=== PATIENT | female | born 1935 | race Caucasian/White ===

== ENCOUNTER 2025-05-21 17:21 | Emergency (ER) | payer MEDICARE, SELFPAY ==
[2025-05-21 17:26] VITALS: BP 152/76; PULSE 93; RESP 18; TEMP 36.7; O2SAT 97; BMI 19.8
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
--- OUTSIDE RECORDS SUMMARY | 2025-05-21 18:31 | XMS RPT_ITS | CCD ---
Author Organization [facility] ion Partnership [facility] Care Team Providers Care Manager Field Sales Name Role Phone Tai Doizer MD Primary Care Provider Unavailable Primary Care Provider UnavailTAI Valdez Primary Care Unavailable AVE MORAN Attending Unavailjoshua e TAI DOZIER Primary Care Unavailable TAI DOZIER Primary Care Unavailable TAI DOZIER Referring Unavailable TAI DOZIER Attending Unavailable CONSTANTIN BENTLEY Primary Care Unavailable Natalie MARIE, Ghazala Parr Primary Care Provider YANOGA, MELVIN Attending Unavailable SELF, SELF Referring Unavailable YANOGA, MELVIN Attending Unavailable SELF, SELF Referring Unavailable YANOGA, MELVIN Attending Unavailable SELF, SELF Referring Unavailable SELF, SELF Referring Unavailable YANOGA, MELVIN Attending Unavailable SELF, SELF Referring Unavailable YANOGA, MELVIN Attending Unavailable CORBEAN, GHAZALA Attending Unavailable CORBEAN, GHAZALA Primary Care Unavailable CORBEANPRICEY Attending Unavailable CORBEAN, GHAZALA Primary Care Unavailable CORBEANGHAZALA Primary Care Unavaila ble CORBEANGHAZALA Attending Unavaila ble CORBEANGHAZALA Primary Care Unavaila ble CORBEANGHAZALA Attending Unavaila ble CORBEANGHAZALA Primary Care Unavaila ble CORBEANGHAZALA Attending Unavaila ble CORBEANGHAZALA Primary Care Unavaila ble CORBEANGHAZALA Attending Unavaila ble Allergies Allergy Classification Reported Allergen(s) Allergy Type Date of Onset Reaction(s) Facility [facility] (1 source) Morphine Drug Allergy [address] [facility] (18 sources) Morphine; Translations: [MORPHINE SULFATE] Drug Allergy 3 Nausea and vomiting, Hallucinations [facility] (7 sources) Morphine Drug Allergy 4 Nausea and Vomiting [facility] Medications Current Medications Medication Drug Class(es) Dates Sig (Normalized) Sig (Original) amLODIPine 2.5 mg oral tablet (20 sources) Dihydropyridine Calcium Channel Miko Start: 09-17-2023 End: 08-15-2025 take 1 tablet by mouth once daily amLODIPine (NORVASC) 2.5 MG tablet Indications: Hypertension, unspecified type Take 1 (one) tablet (2.5 mg total) by mouth daily . 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 Active b complex vitamins capsule (17 sources) take 1 capsule by mouth once daily b complex vitamins capsule Take 1 (one) capsule by mouth daily . Active take 1 capsule by mouth once laith ly b complex vitamins capsule Take 1 (one) capsule by mouth daily . 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 0.05 mL 09/29/2024 Active bifidobacterium infantis 10.5 mg chewable tablet (20 sources) Start: 09-03-2023 Bifidobacteriu m infantis (Align) 10.5 mg (10 million cell) Chew Indications: SBO (small bowel obstruction) ([facility]) Chew and Swallow 1 tablet daily . 90 tablet 3 09/03/2023 Active End: 09-03-2023 Bifidobacterium infantis (Al ign) 10.5 mg (10 million cell) Chew Chew and Swallow . 0 09/03/2023 Discontinued (Reorder (Suppress CancelRx Message to Pharmacy)) take 1 capsule by [facility] once daily Bifidobacterium infantis (Align) 4 mg capsule Take 1 capsule by mouth 1 (one) time each day. 0 Active cholecalciferol 0.05 mg oral capsule (20 sources) Vitamin D cholecalciferol, vitamin D3, (Vitamin D3) 50 mcg (2,000 unit) cap Take by mouth . 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 Active latanoprost 0.05 mg/ml ophthalmic solution (20 sources) Prostaglandin Analog Start: 08-17-2024 take 1 drop(s) into the eye(s) once daily latanoprost (XALATAN) 0.005 % ophthalmic solution Administer 1 (one) drop into the left eye nightly . 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 08/17/2024 Discontinued (Reorder (Suppress CancelRx Message to Pharmacy)) take 1 drop(s) into the eye(s) at bedtime latanoprost (XALATAN) 0.005 % ophthalmic solution Administer 1 drop into the left eye at bedtime. 0 Active losartan potassium 100 mg oral tablet (20 sources) Angiotensin 2 Receptor Miko Start: 08-19-2023 End: 08-19-2023 take 100 mg by mouth once daily 100 mg, oral, Daily, First dose on Fri08/19/23 at 0900 Start: 09-03-2022 End: 08-15-2025 take 1 tablet by mouth once daily losartan (COZAAR) 100 MG tablet Indications: Hypertension, unspecified type Take 1 (one) tablet (100 mg total) by mouth daily . 90 tablet 1 02/16/2025 08/15/2025 Active End: 08-18-2023 take 1 tablet by mouth once daily losartan (COZAAR) 25 mg tablet Take 1 tablet (25 mg total) by mouth 1 (one) time each day. 0 08/18/2023 Discontinued (Entered in Error) UNABLE TO FIND (17 sources) UNABLE TO FIND V itamin B6 50mg . Active UNABLE TO FIND V itamin B6 50mg . 0 Active Vitamin B Complex (1 source) take 1 tablet by kena th three times weekly B complex tablet Take 1 tablet by mouth 3 (three) times a week. Friday, Friday & 0 Active vitamin e 268 mg oral capsule (20 sources) take 1 capsule by mo ut once daily vitamin E 400 UNIT capsule Take 1 (one) capsule (400 Units total) by mouth daily . Active Vitamin E (Vitam in E/D-Alpha Natural) 268 MG (400 UNIT) capsule Take 400 Units by mouth daily. Active take 1 capsule by mouth every we ek vitamin E, dl,tocopheryl acet, (vitamin E, dl, acetate,) 180 mg (400 unit) capsule Take 1 capsule (400 Units total) by mouth 1 (one) time per week. Friday 0 Active Completed/Discontinued Medications Medication Drug Class(es) Dates Sig (Normalized) Sig (Original) acetaminophen 325 mg oral tablet (1 source) Start: 08-18-2023 End: 08-19-2023 take 1 tablet by mouth every six hours as needed 650 mg, oral, Every 6 hours PRN, mild pain, Starting on Fri08/18/23 at 2142 aspirin 81 mg chewable tablet (20 sources) Platelet Aggregation Inhibitor, Nonsteroidal Anti-inflammatory Drug Start: 08-19-2023 End: 08-19-2023 take 81 mg by mouth once daily 81 mg, oral, Daily, First dose on Fri08/19/23 at 0900 End: 02-16-2025 take 1 tablet by mouth once daily aspirin 81 MG EC tablet Take 1 (one) tablet (81 mg total) by mouth daily . 02/16/2025 Discontinued Bevacizumab (AVASTIN) 2.5 MG/0.1ML syringe 2.5 mg (1 source) Start: 08-21-2023 End: 08-21-2023 2.5 mg, Intravitreal, ONCE A S NEEDED, 1 dose, Starting on Karissa 08/21/23 at 1500, Until Karissa 08/21/23 at 1500 Bevacizumab (AVASTIN) 2.5MG/0.1ML syringe 1.25 mg (2 sources) Start: 11-13-2023 End: 11-13-2023 1.25 mg, Intravitreal, ONCE NEEDED, 1 dose, Starting on Karissa 11/13/23 at 1104, Until Karissa 11/13/23 at 1104 Start: 09-30-2023 End: 09-30-2023 1.25 mg, Intravitreal, ONCE NEEDED, 1 dose, Starting on 09/30/23 at 1446, Until 09/30/23 at 1446 Bevacizumab (AVASTIN) 2.75MG/0.11ML syringe 1.25 mg (2 sources) Start: 07-06-2024 End: 07-06-2024 1.25 mg, Intravitreal, ONCE NEEDED, 1 dose, Starting on 07/06/24 at 1432, Until 07/06/24 at 1432 Start: 04-29-2024 End: 04-29-2024 1.25 mg, Intravitreal, ONCE NEEDED, 1 dose, Starting on Karissa 04/29/24 at 1310, Until Karissa 04/29/24 at 1310 fluticasone propionate 0.05 mg/actuat metered dose nasal spray (12 sources) Corticosteroid Start: 04-02-2023 End: 02-16-2025 take 2 spray(s) nasal route once daily fluticasone propionate (FLONASE) 50 mcg/actuation nasal spray Indications: Congestion of right ear Instill 2 (two) sprays into each nostril daily . 16 g 5 04/02/2023 02/16/2025 Discontinued take 2 spray(s) nasa l route once daily for rhinitis fluticasone propionate (FLONASE) 50 mcg/actuation nasal spray Administer 2 sprays into each nostril 1 (one) time each day if needed for rhinitis. Shake gently. Before first use, prime pump. After use, clean tip and replace cap. 0 Active melatonin 3 mg oral tablet (1 source) Start: 08-18-2023 End: 08-19-2023 take 6 mg by mouth once daily as needed for sleep 6 mg, oral, Nightly PRN, sleep, Starting on Fri08/18/23 at 2142 nitroglycerin 0.4 mg sublingual tablet (1 source) Nitrate Vasodilator Start: 08-18-2023 End: 08-19-2023 nitroglycerin (NITROSTAT) SL tablet 0.4 mg polyethylene glycol 3350 [id number] mg powder for oral solution (1 source) Osmotic Laxative Start: 08-18-2023 End: 08-19-2023 17 g, oral, Daily PRN, constipation, Starting on Fri08/18/23 at 214 Bowel Regimen - for prevention of constipation regadenoson (LEXISCAN) injection 0.4 mg (1 source) Start: 08-19-2023 End: 08-19-2023 regadenoson (LEXISCAN) injection 0.4 mg 125 ml sodium chloride 9 mg/ml prefilled syringe (3 sources) Start: 08-19-2023 End: 08-19-2023 sodium chloride 0.9 % flush 10 mL Start: 08-18-2023 End: 08-19-2023 sodium chloride 0.9 % flush 10 mL TC-99M sestamibi P radio-iso kathryn injection 10.5 millicurie (1 source) Start: 08-19-2023 End: 08-19-2023 TC-99M sestamibi P radio-isotope injection 10.5 millicurie TC-99M sestamibi P radio-iso kathryn injection 30 millicurie (1 source) Start: 08-19-2023 End: 08-19-2023 TC-99M sestamibi P radio-isotope injection 30 millicurie Problems Active Problems Problem Classification Problem Date Documented Da te Episodic/Chronic Adjustment disorders (16 sources) Grief finding; Translations: [Adjustment disorder with depressed mood] Onset: 03-18-2023 03-18-2023 Chronic Cataract (1 source) Bilateral pseudophakia; Translations: [Presence of intraocular lens] 08-21-2023 Chronic Diverticulosis and diverticulitis (18 sources) Diverticular disease; Translations: [Diverticulosis of intestine, part unspecified, without perforation or abscess without bleeding] Chronic Essential hypertension (20 sources) Hypertensive disorder; Translations: [Essential (primary) hypertension] Onset: 09-13-2022 Chronic Glaucoma (18 sources) Glaucoma of left eye; Translations: [Unspecified glaucoma] Chronic Headache; including migraine (1 source) Tension-type headache; Translations: [Tension-type headache, unspecified, not intractable] 04-02-2023 Chronic Hemorrhoids (18 sources) Hemorrhoids; Translations: [Unspecified hemorrhoids] Episodic Immunizations and screening for infectious disease (3 sources) Patient encounter status; Translations: [Encounter for immunization] 03-18-2023 Episodic Intestinal obstruction without hernia (20 sources) Small bowel obstruction; Translations: [Unspecified intestinal obstruction, unspecified as to partial versus complete obstruction] Episodic Nonspecific chest pain (3 sources) Chest pain; Translations: [Chest pain, unspecified] Onset: 08-18-2023 08-18-2023 Episodic Other ear and sense organ disorders (1 source) Hearing difficulty; Translations: [Unspecified hearing loss, bilateral] Chronic Other eye disorders (1 source) Disorder of lacrimal gland; Translations: [Dry eye syndrome of bilateral lacrimal glands] 01-06-2025 Episodic Other gastrointestinal disorders (18 sources) Stool DNA-based colorectal cancer screening positive; Translations: [Other fecal abnormalities] Episodic Other injuries and conditions due to external causes (3 sources) At low risk for fall; Translations: [History of falling] 03-18-2023 Episodic Other injuries and conditions due to external causes (2 sources) History of falling; Translations: [History of falling] Onset: 02-16-2025 Episodic Other screening for suspected conditions (not mental disorders or infectious disease) (5 sources) Screening due; Translations: [Encounter for screening for lipoid disorders] Onset: 04-02-2023 03-18-2023 Episodic Other skin disorders (1 source) Disorder of skin; Translations: [Other skin changes] 04-02-2023 Episodic Residual codes; unclassified (18 sources) H/O: major abdominal surgery; Translations: [Other specified postprocedural states] Episodic Residual codes; unclassified (2 sources) Asymptomatic menopausal state; Translations: [Asymptomatic menopausal state] Onset: 03-31-2024 Episodic Retinal detachments; defects; vascular occlusion; and retinopathy (20 sources) Exudative age-related macular degeneration; Translations: [Exudative age-related macular degeneration, right eye, with active choroidal neovascularization] Onset: 09-03-2023 08-21-2023 Chronic Past or Other Problems Problem Classification Problem Date Documented Da te Episodic/Chronic Conditions associated with dizziness or vertigo (3 sources) Dizziness; Translations: [Dizziness and giddiness] Onset: 04-02-2023 04-02-2023 Episodic Mood disorders (18 sources) Mood disorders Onset: 08-17-2024 08-17-2024 Neoplasms of unspecified nature or uncertain behavior (2 sources) Neoplasm of uncertain behavior of skin; Translations: [Neoplasm of uncertain behavior of skin] Onset: 05-01-2023 Episodic Other ear and sense organ disorders (15 sources) Sensation of blocked ear; Translations: [Other specified disorders of right ear] Onset: 04-02-2023 Resolved: 02-16-2025 04-02-2023 Episodic Results Test Name Value Interpretation Reference Range Facility Comprehensive Metabolic Pane linus 02-16-2025 Albumin [Mass/Vol] 4.4 g/dL Normal 3.2-5.2 [facility] Comment on above: Performed By: #### C MP #### [facility] (DEFAULT) [address], [place] [address] ALP [Catalytic activity/Vol] 68 U/L Normal 40-150 [facility] Comment on above: Performed By: #### C MP #### [facility] (DEFAULT) [address] [facility] [place], [place] [address] ALT [Catalytic activity/Vol] 27 U/L Normal 0-35 [facility] Comment on above: Performed By: #### C MP #### [facility] (DEFAULT) [address] [facility] [place], [place] [address] Anion gap [Moles/Vol] 16 mmol/L Normal 10-20 [facility] Comment on above: Performed By: #### C MP #### [facility] (DEFAULT) [address], [place] [address] AST [Catalytic activity/Vol] 26 U/L Normal 0-35 [facility] Comment on above: Performed By: #### C MP #### [facility] (DEFAULT) [address], [place] [address] Bilirubin [Mass/Vol] 1.1 mg/dL Normal 0.0-1.3 [facility] Comment on above: Performed By: #### C MP #### [facility] (DEFAULT) [address] [place] [address] Calcium [Mass/Vol] 9.2 mg/dL Normal 8.4-10.2 [facility] Comment on above: Performed By: #### C MP #### [facility] (DEFAULT) [address] [place] [address] Chloride [Moles/Vol] 109 mmol/L High 98-108 [facility] Comment on above: Performed By: #### C MP #### [facility] (DEFAULT) [address] [place] [address] CO2 [Moles/Vol] 23.0 mmol/L Normal 21.0-32.0 [facility] Comment on above: Performed By: #### C MP #### [facility] (DEFAULT) [address] [place] [address] Creatinine [Mass/Vol] 0.7 mg/dL Normal 0.6-1.2 [facility] Comment on above: Performed By: #### C MP #### [facility] (DEFAULT) [address] [place] [address] GFR/1.73 sq M.predicted MDRD (S/P/Bld) [Vol rate/Area] 79 mL/min/{1.73_m2} Normal 60-[address] [facility] Comment on above: Result Comment: [facility] has implemented the eGFR calculation approach that does not have a coefficient for race that conforms to the NKF-ASN Task Force Recommendations. Estimated?GFR was calculated using the 2020 CKD-EPI creatinine equation. Estimated GFR was calculated using the 2020 CKD-EPI creatinine equation. [facility] has implemented the eGFR calculation approach that does not have a coefficient for race that conforms to the NKF-ASN Task Force Recommendations. The eGFR should be used for monitoring renal function only and not for medication dosing. Performed By: #### C MP #### [facility] (DEFAULT) [address] [place], [place] [address] Glucose [Mass/Vol] 145 mg/dL High 65-99 [facility] Comment on above: Performed By: #### C MP #### [facility] (DEFAULT) [address] [place], [place] [address] Potassium [Moles/Vol] 4.4 mmol/L Normal 3.5-5.1 [facility] Comment on above: Performed By: #### C MP #### [facility] (DEFAULT) [address] [place], [place] [address] Protein [Mass/Vol] 6.9 g/dL Normal 6.0-8.0 [facility] Comment on above: Performed By: #### C MP #### [facility] (DEFAULT) [address] [address] Sodium [Moles/Vol] 144 mmol/L Normal 135-145 [facility] Comment on above: Performed By: #### C MP #### [facility] (DEFAULT) [address], [place] [address] Urea nitrogen [Mass/Vol] 33 mg/dL High 8-25 [facility] Comment on above: Performed By: #### C MP #### [facility] (DEFAULT) [address] [place], [place] [address] Comprehensive metabolic 2000 panelon 02-16-2025 Albumin [Mass/Vol] 4.4 g/dL 3.2 - 5.2 g/dL [facility] ALP [Catalytic activity/Vol] 68 U/L 40 - 150 U/L [facility] ALT [Catalytic activity/Vol] 27 U/L 0 - 35 U/L [facility] Anion gap [Moles/Vol] 16 mmol/L 10 - 2 0 mmol/L [facility] AST [Catalytic activity/Vol] 26 U/L 0 - 35 U/L [facility] Bilirubin Ql (U) 1.1 mg/dL 0.0 - 1.3 mg/dL [facility] Calcium [Mass/Vol] 9.2 mg/dL 8.4 - 10. 2 mg/dL [facility] Chloride [Moles/Vol] 109 mmol/L High 98 - 10 8 mmol/L [facility] Creatinine [Mass/Vol] 0.7 mg/dL 0.6 - 1.2 mg/dL [facility] GFR/1.73 sq M.predicted among non-blacks MDRD (S/P/Bld) [Vol rate/Area] 79 mL/min/{1.73_m2} [facility] Comment on above: [facility] has implemented the eGFR calculation approach that does not have a coefficient for race that conforms to the NKF-ASN Task Force Recommendations. Estimated?GFR was calculated using the 2020 CKD-EPI creatinine equation. Estimated GFR was calculated using the 2020 CKD-EPI creatinine equation. [facility] has implemented the eGFR calculation approach that does not have a coefficient for race that conforms to the NKF-ASN Task Force Recommendations. The eGFR should be used for monitoring renal function only and not for medication dosing. Glucose [Mass/Vol] 145 mg/dL High 65 - 99 mg/dL [facility] HCO3 (Bld) [Moles/Vol] 23 mmol/L 21.0 - 32.0 mmol/L [facility] Interpretation and review of laboratory results Abnormal [facility] Potassium [Moles/Vol] 4.4 mmol/L 3.5 - 5.1 mmol/L [facility] Protein [Mass/Vol] 6.9 g/dL 6.0 - 8.0 g/dL [facility] Sodium [Moles/Vol] 144 mmol/L 135 - 145 mmol/L [facility] Urea nitrogen (BldV) [Mass/Vol] 33 mg/dL High 8 - 25 mg/dL [facility] FUNDUS PHOTOGRAPHY-OU- [facility] OCT/HRT MACULA 01-18-20 [facility] [place] BEVACIZUMAB SOLN - ODon 0 01-17-2025 [facility] FUNDUS PHOTOGRAPHY-12-21 Radiology Study observation (narrative) [facility] OCT/HRT MACULA 01-07-20 Radiology Study observation (narrative) [facility] FUNDUS PHOTOGRAPHY-09-21 [facility] OCT/HRT MAC[place] 10-05-19 [facility] [place] BEVACIZUMAB SOLN - ODon 0 10-04-2024 [facility] No Panel Informationon 09-30 Radiology Study observation (narrative) [facility] CBC With Auto Diff.on 2024 Basophils (Bld) [#/Vol] 0.04 10*3/uL Normal 0.00-0.30 [facility] Comment on above: Order Comment: Regul atory Requirements State: Only Absolute Cell Counts are reported with their reference ranges. Performed By: #### C BC #### [facility] (DEFAULT) [address] [place] [address] Basophils/100 WBC (Bld) 0.6 % Normal [facility] Comment on above: Order Comment: Regul atory Requirements State: Only Absolute Cell Counts are reported with their reference ranges. Performed By: #### C BC #### [facility] (DEFAULT) [address] [place] [address] Eosinophils (Bld) [#/Vol] 0.06 10*3/uL Normal 0.00-0.50 [facility] Comment on above: Order Comment: Regul atory Requirements State: Only Absolute Cell Counts are reported with their reference ranges. Performed By: #### C BC #### [facility] (DEFAULT) [address] [place] [address] Eosinophils/100 WBC (Bld) 0.9 % Normal [facility] Comment on above: Order Comment: Regul atory Requirements State: Only Absolute Cell Counts are reported with their reference ranges. Performed By: #### C BC #### [facility] (DEFAULT) [address] [place] [address] Erythrocyte distribution width (RBC) [Ratio] 13.3 % Normal 11.6-14.8 [facility] Comment on above: Order Comment: Regul atory Requirements State: Only Absolute Cell Counts are reported with their reference ranges. Performed By: #### C BC #### [facility] (DEFAULT) [address], [place] [address] Hematocrit (Bld) [Volume fraction] 42.6 % Normal 36.0-46.0 [facility] Comment on above: Order Comment: Regul atory Requirements State: Only Absolute Cell Counts are reported with their reference ranges. Performed By: #### C BC #### [facility] (DEFAULT) [address], [place] [address] Hemoglobin (Bld) [Mass/Vol] 14.2 g/dL Normal 12.0-16.0 [facility] Comment on above: Order Comment: Regul atory Requirements State: Only Absolute Cell Counts are reported with their reference ranges. Performed By: #### C BC #### [facility] (DEFAULT) [address] [place] [address] Ig% 0.2 % Normal 0.0-4.0 [facility] Comment on above: Order Comment: Regul atory Requirements State: Only Absolute Cell Counts are reported with their reference ranges. Performed By: #### C BC #### [facility] (DEFAULT) [address] [place] [address] Lymphocytes (Bld) [#/Vol] 1.65 10*3/uL Normal 0.90-4.00 [facility] Comment on above: Order Comment: Regul atory Requirements State: Only Absolute Cell Counts are reported with their reference ranges. Performed By: #### C BC #### [facility] (DEFAULT) [address] [place] [address] Lymphocytes/100 WBC (Bld) 25.8 % Normal [facility] Comment on above: Order Comment: Regul atory Requirements State: Only Absolute Cell Counts are reported with their reference ranges. Performed By: #### C BC #### [facility] (DEFAULT) [address] [place] [address] MCH (RBC) [Entitic mass] 32.0 pg Normal 26.0-34.0 [facility] Comment on above: Order Comment: Regul atory Requirements State: Only Absolute Cell Counts are reported with their reference ranges. Performed By: #### C BC #### [facility] (DEFAULT) [address] [place] [address] MCHC (RBC) [Mass/Vol] 33.3 g/dL Normal 31.0-37.0 [facility] Comment on above: Order Comment: Regul atory Requirements State: Only Absolute Cell Counts are reported with their reference ranges. Performed By: #### C BC #### [facility] (DEFAULT) [address], [place] [address] MCV (RBC) [Entitic vol] 96 fL Normal 80-100 [facility] Comment on above: Order Comment: Regul atory Requirements State: Only Absolute Cell Counts are reported with their reference ranges. Performed By: #### C BC #### [facility] (DEFAULT) [address], [place] [address] Monocytes (Bld) [#/Vol] 0.47 10*3/uL Normal 0.30-0.90 [facility] Comment on above: Order Comment: Regul atory Requirements State: Only Absolute Cell Counts are reported with their reference ranges. Performed By: #### C BC #### [facility] (DEFAULT) [address], [place] [address] Monocytes/100 WBC (Bld) 7.4 % Normal [facility] Comment on above: Order Comment: Regul atory Requirements State: Only Absolute Cell Counts are reported with their reference ranges. Performed By: #### C BC #### [facility] (DEFAULT) [address] [place] [address] Neutrophils (Bld) [#/Vol] 4.16 10*3/uL Normal 1.70-7.00 [facility] Comment on above: Order Comment: Regul atory Requirements State: Only Absolute Cell Counts are reported with their reference ranges. Performed By: #### C BC #### [facility] (DEFAULT) [address], [place] [address] Neutrophils/100 WBC (Bld) 65.1 % Normal [facility] Comment on above: Order Comment: Regul atory Requirements State: Only Absolute Cell Counts are reported with their reference ranges. Performed By: #### C BC #### [facility] (DEFAULT) [address], [place] [address] Platelet mean volume (Bld) [Entitic vol] 9.6 fL Normal 9.0-15.[address] [facility] Comment on above: Order Comment: Regul atory Requirements State: Only Absolute Cell Counts are reported with their reference ranges. Performed By: #### C BC #### [facility] (DEFAULT) [address], [place] [address] Platelets (Bld) [#/Vol] 198 10*3/uL Normal 150-400 [facility] Comment on above: Order Comment: Regul atory Requirements State: Only Absolute Cell Counts are reported with their reference ranges. Performed By: #### C BC #### [facility] (DEFAULT) [address] [place] [address] RBC (Bld) [#/Vol] 4.44 10*6/uL Normal 4.00-5.20 [facility] Comment on above: Order Comment: Regul atory Requirements State: Only Absolute Cell Counts are reported with their reference ranges. Performed By: #### C BC #### [facility] (DEFAULT) [address] [place] [address] WBC (Bld) [#/Vol] 6.39 10*3/uL Normal 4.50-11.00 [facility] Comment on above: Order Comment: Regul atory Requirements State: Only Absolute Cell Counts are reported with their reference ranges. Performed By: #### C BC #### [facility] (DEFAULT) [address] [place] [address] CBC and Differentialon 08-17 Basophils (Bld) [#/Vol] 0.04 10*3/uL 0.00 - 0.30 K/uL [facility] Basophils/100 WBC (Bld) 0.6 % [facility] Eosinophils (Bld) [#/Vol] 0.06 10*3/uL 0.00 - 0.50 K/uL [facility] Eosinophils/100 WBC (Bld) 0.9 % [facility] Erythrocyte distribution width (RBC) [Entitic vol] 13.3 % 11.6 - 14.8 % [facility] Hematocrit (Bld) [Volume fraction] 42.6 % 36.0 - 46.0 % [facility] Hemoglobin (Bld) [Mass/Vol] 14.2 g/dL 12.0 - 16.0 g/dL [facility] IG Percent 0.2 % 0.0 - 4.0 % [facility] Lymphocytes (Bld) [#/Vol] 1.65 10*3/uL 0.90 - 4.00 K/uL [facility] Lymphocytes/100 WBC (Bld) 25.8 % [facility] MCH (RBC) [Entitic mass] 32 pg 26.0 - 34.0 pg [facility] MCHC (RBC) [Mass/Vol] 33.3 g/dL 31.0 - 37.0 g/dL [facility] MCV (RBC) [Entitic vol] 96 fL 80 - 100 fL [facility] Monocytes (Bld) [#/Vol] 0.47 10*3/uL 0.30 - 0.90 K/uL [facility] Monocytes/100 WBC (Bld) 7.4 % [facility] Neutrophils (Bld) [#/Vol] 4.16 10*3/uL 1.70 - 7.00 K/uL [facility] Neutrophils/100 WBC (Bld) 65.1 % [facility] Platelet mean volume (Bld) [Entitic vol] 9.6 fL 9.0 - 15.5 fL [facility] Platelets (Bld) [#/Vol] 198 10*3/uL 150 - 400 K/uL [facility] RBC (Bld) [#/Vol] 4.44 10*6/uL [facility] WBC (Bld) [#/Vol] 6.39 10*3/uL 4.50 - 11. 00 K/uL [facility] Regulatory Requireme nts State: Only Absolute Cell Counts are reported with their reference ranges. [facility] Comprehensive Metabolic Pane linus 08-17-2024 Albumin [Mass/Vol] 4.5 g/dL Normal 3.2-5.2 [facility] Comment on above: Performed By: #### C MP #### [facility] (DEFAULT) [address], [place] [address] ALP [Catalytic activity/Vol] 62 U/L Normal 40-150 [facility] Comment on above: Performed By: #### C MP #### [facility] (DEFAULT) [address], [place] [address] ALT [Catalytic activity/Vol] 23 U/L Normal 0-35 [facility] Comment on above: Performed By: #### C MP #### [facility] (DEFAULT) [address] [place], [place] [address] Anion gap [Moles/Vol] 16 mmol/L Normal 10-20 [facility] Comment on above: Performed By: #### C MP #### [facility] (DEFAULT) [address] [place], [place] [address] AST [Catalytic activity/Vol] 27 U/L Normal 0-35 [facility] Comment on above: Performed By: #### C MP #### [facility] (DEFAULT) [address] [place], [place] [address] Bilirubin [Mass/Vol] 0.9 mg/dL Normal 0.0-1.3 [facility] Comment on above: Performed By: #### C MP #### [facility] (DEFAULT) [address] [place], [place] [address] [place], [place] [address] Calcium [Mass/Vol] 9.3 mg/dL Normal 8.4-10.2 [facility] Comment on above: Performed By: #### C MP #### [facility] (DEFAULT) [address] [place], [place] [address] Chloride [Moles/Vol] 107 mmol/L Normal 98-108 [facility] Comment on above: Performed By: #### C MP #### [facility] (DEFAULT) [address] [place], [place] [address] CO2 [Moles/Vol] 22.0 mmol/L Normal 21.0-32.0 [facility] Comment on above: Performed By: #### C MP #### [facility] (DEFAULT) [address] [place], [place] [address] Creatinine [Mass/Vol] 0.6 mg/dL Normal 0.6-1.2 [facility] Comment on above: Performed By: #### C MP #### [facility] (DEFAULT) [address] [place], [place] [address] GFR/1.73 sq M.predicted MDRD (S/P/Bld) [Vol rate/Area] 85 mL/min/{1.73_m2} Normal 60-[address] [facility] Comment on above: Result Comment: The eGFR should be used for monitoring renal function only and not for medication dosing. Performed By: #### C MP #### [facility] (DEFAULT) [address] [place] [address] Glucose [Mass/Vol] 84 mg/dL Normal 65-99 [facility] Comment on above: Performed By: #### C MP #### [facility] (DEFAULT) [address] [place] [address] Potassium [Moles/Vol] 4.4 mmol/L Normal 3.5-5.1 [facility] Comment on above: Performed By: #### C MP #### [facility] (DEFAULT) [address] [place] [address] Protein [Mass/Vol] 6.8 g/dL Normal 6.0-8.0 [facility] Comment on above: Performed By: #### C MP #### [facility] (DEFAULT) [address] [place] [address] Sodium [Moles/Vol] 140 mmol/L Normal 135-145 [facility] Comment on above: Performed By: #### C MP #### [facility] (DEFAULT) [address] [place] [address] Urea nitrogen [Mass/Vol] 24 mg/dL Normal 8-25 [facility] Comment on above: Performed By: #### C MP #### [facility] (DEFAULT) [address] [place] [address] Comprehensive metabolic 2000 panelon 08-17-2024 Albumin [Mass/Vol] 4.5 g/dL 3.2 - 5.2 g/dL [facility] ALP [Catalytic activity/Vol] 62 U/L 40 - 150 U/L [facility] ALT [Catalytic activity/Vol] 23 U/L 0 - 35 U/L [facility] Anion gap [Moles/Vol] 16 mmol/L 10 - 2 0 mmol/L [facility] AST [Catalytic activity/Vol] 27 U/L 0 - 35 U/L [facility] Bilirubin Ql (U) 0.9 mg/dL 0.0 - 1.3 mg/dL [facility] Calcium [Mass/Vol] 9.3 mg/dL 8.4 - 10. 2 mg/dL [facility] Chloride [Moles/Vol] 107 mmol/L 98 - 10 8 mmol/L [facility] Creatinine [Mass/Vol] 0.6 mg/dL 0.6 - 1.2 mg/dL [facility] GFR/1.73 sq M.predicted among non-blacks MDRD (S/P/Bld) [Vol rate/Area] 85 mL/min/{1.73_m2} [facility] Comment on above: The eGFR should be u sed for monitoring renal function only and not for medication dosing. Glucose [Mass/Vol] 84 mg/dL 65 - 99 mg/dL [facility] HCO3 (Bld) [Moles/Vol] 22 mmol/L 21.0 - 32.0 mmol/L [facility] Potassium [Moles/Vol] 4.4 mmol/L 3.5 - 5.1 mmol/L [facility] Protein [Mass/Vol] 6.8 g/dL 6.0 - 8.0 g/dL [facility] Sodium [Moles/Vol] 140 mmol/L 135 - 145 mmol/L [facility] Urea nitrogen (BldV) [Mass/Vol] 24 mg/dL 8 - 25 mg/dL [facility] Lipid 1996 panelon 5 Cholesterol [Mass/Vol] 170 mg/dL 100 - 199 mg/dL [facility] Comment on above: 0-17 years Acceptable: <170 mg/dL Borderline High: 170-199 mg/dL High: >199 mg/dL >18 Years Acceptable Acceptable: 100-199 mg/dL Borderline High: 200-239 mg/dL High: >239 mg/dL Cholesterol in HDL [Mass/Vol] 88 mg/dL High 40 - 59 mg/dL [facility] Comment on above: 0-17 Years Low HDL: <40 mg/dL Borderline low: 40-45 mg/dL Acceptable: >45 mg/dL >17 years Low HDL: <40 mg/dL Near optimal: 40-59 mg/dL Optimal: >59 mg/dL Cholesterol in LDL [Mass/Vol] 68 mg/dL 10 - 130 mg/dL [facility] Comment on above: Comment: National Cholesterol Education Program Guidelines: LDL Cholesterol Optimal: <100 mg/dL Near Optimal/above Optimal: 100-129 mg/dL Borderline High: 130-159 mg/dL High: 160-189 mg/dL Very High: greater than or equal to 190 mg/dL Cholesterol.total/Cho lesterol in HDL [Mass ratio] 2 {ratio} [facility] Comment on above: Comment: Female CHolesterol/HDL Ratio: Average risk: 4.4 1/2 average risk: 3.3 2 x average risk: 7.1 Interpretation and review of laboratory results Abnormal [facility] Magnesium [Mass/Vol] 82 mg/dL [facility] Comment on above: Comment: National Cholesterol Education Program guidelines: NON HDL Cholesterol Desirable: <130 mg/dL Borderline High 130-159 mg/dL High: 160-189 mg/dL Very High: > or = 190 mg/dL Triglyceride [Mass/Vol] 72 mg/dL 30 - 150 mg/dL [facility] Comment on above: Comment: National Cholesterol Education Program Guidelines: Triglyceride Normal: <150 mg/dL Borderline High: 150-199 mg/dL High: 200-499 mg/dL Very High: greater than or equal to 500 mg/dL Lipid Profileon 08-17-2024 Cholesterol [Mass/Vol] 170 mg/dL Normal 100-199 [facility] Comment on above: Result Comment: 0-17 years Acceptable: <170 mg/dL Borderline High: 170-199 mg/dL High: >199 mg/dL >18 Years Acceptable Acceptable: 100-199 mg/dL Borderline High: 200-239 mg/dL High: >239 mg/dL Performed By: #### L IPID #### [facility] (DEFAULT) [address] [place] [address] Cholesterol in HDL [Mass/Vol] 88 mg/dL High 40-59 [facility] Comment on above: Result Comment: 0-17 Years Low HDL: <40 mg/dL Borderline low: 40-45 mg/dL Acceptable: >45 mg/dL >17 years Low HDL: <40 mg/dL Near optimal: 40-59 mg/dL Optimal: >59 mg/dL Performed By: #### L IPID #### [facility] (DEFAULT) [address], [place] [address] Cholesterol in LDL [Mass/Vol] 68 mg/dL Normal 10-130 [facility] Comment on above: Result Comment: Comm ent: National Cholesterol Education Program Guidelines: LDL Cholesterol Optimal: <100 mg/dL Near Optimal/above Optimal: 100-129 mg/dL Borderline High: 130-159 mg/dL High: 160-189 mg/dL Very High: greater than or equal to 190 mg/dL Performed By: #### L IPID #### [facility] (DEFAULT) [address] [place] [address] Cholesterol non HDL [Mass/Vol] 82 mg/dL Normal [facility] Comment on above: Result Comment: Comm ent: National Cholesterol Education Program guidelines: NON HDL Cholesterol Desirable: <130 mg/dL Borderline High 130-159 mg/dL High: 160-189 mg/dL Very High: > or = 190 mg/dL Performed By: #### L IPID #### [facility] (DEFAULT) [address] [place] [address] Cholesterol.total/Cho lesterol in HDL [Mass ratio] 2.00 {ratio} Normal [facility] Comment on above: Result Comment: Comm ent: Female CHolesterol/HDL Ratio: Average risk: 4.4 1/2 average risk: 3.3 2 x average risk: 7.1 Performed By: #### L IPID #### [facility] (DEFAULT) [address] [place] [address] Triglyceride [Mass/Vol] 72 mg/dL Normal 30-150 [facility] Comment on above: Result Comment: Comm ent: National Cholesterol Education Program Guidelines: Triglyceride Normal: <150 mg/dL Borderline High: 150-199 mg/dL High: 200-499 mg/dL Very High: greater than or equal to 500 mg/dL Performed By: #### L IPID #### [facility] (DEFAULT) [address] [place] [address] No Panel Informationon 08-17 [facility] TSH DL <= 0.005 mIU/L Qnon 0 08-17-2024 TSH Qn 1.55 m[IU]/L [facility] Thyroid Stimulating Hormone Relflexon 08-17-2024 TSH w/Reflex. 1.550 Iu/ml Normal 0.270-4.[address] [facility] Comment on above: Performed By: #### T PSYCHIATRIC #### [facility] (DEFAULT) [address] [place] [id number] FUNDUS PHOTOGRAPHY-OUon 06-23 [facility] Radiology [facility]) [facility] ([facility]arrative) [facility] [place] BEVACIZUMAB SOLN - ODon 0 07-06-2024 [facility] OCT[facility]HRT [place] OUon 04-30-20 24 OCT/HRT [place] OU Right Eye Quality was good. Findings include abnormal foveal contour, drusen, subretinal fluid. Interval change is same. Recommendation for management is to continue treatment. Left Eye Quality was good. Findings include drusen. Interval change is same. Recommendation for management is to observe. Normal [facility] Right Eye Quality was good. Findings include abnormal foveal contour, drusen, subretinal fluid. Interval change is same. Recommendation for management is to continue treatment. Left Eye Quality was good. Findings include drusen. Interval change is same. Recommendation for management is to observe. ORDEROUT [facility] [place] BEVACIZUMAB SOLN - ODon 1 06-30-[facility]HRT [place] OUon 04-29-20 24 Radiology Study observation (narrative) [facility] XR BONE DENSITY DEXA AXIALon 03-31-2024 XR BONE DENSITY DEXA AXIAL EXAMINATION: XR BONE DENSITY DEXA AXIAL 03/31/2024 HISTORY: ORDERING SYSTEM PROVIDED HISTORY: Osteopetrosis screening, TECHNOLOGIST PROVIDED HISTORY: Illness/Other Reason for exam: screening Encounter Type: Initial Additional signs and symptoms: no ORDERING SYSTEM PROVIDED DIAGNOSIS CODES: Z13.820 Encounter for osteoporosis screening in asymptomatic postmenopausal patient Z78.0 Encounter for osteoporosis screening in asymptomatic postmenopausal patient Risk Factors: Post menopausal state. COMPARISON: None. TECHNIQUE: Bone mineral density measurements were acquired at the lumbar spine and left hip. Instrument: The examination was done at [facility]. [employer]; serial number: [id number]. FINDINGS: BONE MINERAL DENSITY DETERMINATION: Femoral Neck * Density (g/cm2): 0.571 * T Score: -2.5 * Prior T Score: N/A * % Change: N/A% Total Hip * Density (g/cm2): 0.748 * T Score: -1.6 * Prior T Score: N/A * % Change: N/A% Spine (L1-L2) * Density (g/cm2): 0.988 * T Score: 0.1 * Prior T Score: N/A * % Change: N/A% Forearm (if applicable) * Density (g/cm2): * T Score: * Prior T Score: N/A * % Change: N/A% The average bone mineral density (g/cm2) was measured. Final categorization is based on the lowest T-score of the above, as recommended by the International Society of Clinical Densitometry. FRAX Score: FRAX score not reported because: Some T-score for Spine Total or hip Total or femoral neck at or below -2.5 NOTES: 1. This facility has been validated using the recommendations of the International Society of Clinical Densitometry (ISCD). This validation insures accurate results. In order to be certain that your patient's results are accurate, you should refer them only to facilities that have been validated in this manner. Not all facilities have gone through this rigorous validation. 2. In order to compare results through the years, it is necessary that the patient be scanned on the same instrument each time, or on instruments that have been cross-correlated. If this is not done, then difference may be due to differences in the machines, rather than to changes in the patient's bone density. IMPRESSION: Osteoporosis. PHARMACOLOGIC TREATMENT RECOMMENDATIONS: 1. No uniform recommendation applies to all patients. Management plans must be individualized 2. Consider initiating pharmacologic treatment for postmenopausal women and men greater than or equal to 50 years of age who have the following: Primary fracture prevention: *T-score is less than or equal to -2.5 at the femoral neck, total hip, lumbar spine, 33% radius (some uncertainty with existing data) by DEXA. *Low bone mass (osteopenia: T-score between -1.0 and -2.5) at the femoral neck or total hip by DEXA with a 10 year hip fracture risk greater than or equal to 3% or a 10-year major osteoporosis-related fracture risk greater than or equal to 20% (i.e. clinical vertebral, hip, forearm, or proximal humerus) based on the [place]- adapted FRAX model. Secondary fracture prevention: *Fracture of the hip or vertebra regardless of BMD. *Fracture of the proximal humerus, pelvis, or distal forearm in persons with low bone mass (osteopenia: T-score between at -1.0 and -2.5). The decision to treat should be individualized in persons with a fracture of the proximal humerus, pelvis, or distal forearm who do not have osteopenia or low BMD. Agnes MS, Tabby SL, Lion KL, Naomi EM, Nakul KG, AJ, Jose ES. The clinician's guide to prevention and treatment of osteoporosis. Osteoporosis Int. 2021;33(10):8120-5120. doi: 10.1007/a03518-973-9865 0-y. Epub 2021Oct 18. Erratum in: Osteoporosis Int. 2021Jan 17;: PMID: [id number]; PMCID: [id number]. Workstation ID: [id number] Dictated by: MEG KUMAR on FriApr 06, 2024 8:44:01 AM EDT Transcribed by: MEG KUMAR on FriApr 06, 2024 8:44:01 AM EDT Finalized by: JEAN QUICK on FriApr 07, 2024 8:46:06 AM EDT Normal [facility] Comment on above: Order Comment: Injur y/Trauma or Illness?:Illness/Other How long have you had these symptoms (acute/chronic)?:Acute Reason for exam?:screening Type of Exam?:Initial Additional signs and symptoms?:no [place] BEVACIZUMAB SOLN - ODon 0 03-19-2024 [place] BEVACIZUMAB SOLN - OD Table formatting from the original result was not included. Intraocular injection (0.11 mL bevacizumab): 1.25 mg Bevacizumab 2.75MG/0.11ML Route: Intravitreal, Site: Right Eye [facility]: 94154-842-84, Lot: [id number], Expiration date: 05/07/2024, Waste: 0.06 mL Notes Bevacizumab (Avastin) Intraocular Injection Right Eye - OPHTHALMOLOGY PROCEDURE NOTE PROCEDURE PERFORMED BY: Melvin Harding MD SYSTEMS SOFTWARE ENGINEER(S): None ATTENDING: Melvin Harding MD PROCEDURE DATE: 03/04/2024 PROCEDURE START TIME: 9:44 AM INDICATIONS: Treatment of ICD-10-CM 1. 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 Intermediate stage 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 H35.3122 OCT/HRT [place]U [place] BEVACIZUMAB SOLN - OD EYE: Right (OD) PROCEDURE GOALS: To preserve or improve vision, reduce retinal swelling, and cause regression of abnormal blood vessels. EBL: None Specimen: None Complications: None CONSENT: Informed consent was obtained prior to the procedure after discussion of the risks, benefits, alternatives, and expected outcomes were discussed with the patient. The consent was placed in the chart. The possibilities of infection, reaction to medication, retinal tear, bleeding, thromboembolic events such as myocardial infarction or cerebral vascular accident, the need for additional procedures, failure to diagnosis a condition, and creating a complication requiring surgery were discussed with the patient. The OFF LABEL use of the drug was discussed with the patient. Additional risks, benefits and alternatives were discussed with the patient. The patient concurred with the proposed plan and signed the consent form, giving informed consent. DOES THIS PROCEDURE REQUIRE A UNIVERSAL PROTOCOL? Yes. [place] Protocol is required. Pre-procedure verification was completed. The patient verified the site and procedure. The consent was confirmed, procedure sites were identified and marked, and a timeout was called before the start of the procedure. ANESTHESIA: topical proparacaine/tetracaine and subconjunctival lidocaine 2% with epinephrine 1:200,000 PROCEDURE DETAILS: The operative eye was prepped with Betadine. Using a single dose sterile syringe the following medication was injected: Avastin (Bevacizumab 1.25 mg/0.05 ml). The intravitreal pars plana injection was placed 3.5-4.0 mm from the limbus. Following the injection the eye was irrigated with sterile saline and an antibiotic drop was instilled. Normal [facility] COMPREHENSIVE METABOLIC PANE Linus 03-17-2024 Albumin [Mass/Vol] 4.5 g/dL Normal 3.2-5.2 [facility] Comment on above: Order Comment: [facility] has implemented the eGFR calculation approach that does not have a coefficient for race that conforms to the NKF-ASN Task Force Recommendations. Performed By: #### [id number] #### [facility] [address] [place] [id number] Bob Mane M.D. [id number] ALP [Catalytic activity/Vol] 66 U/L Normal 40-150 [facility] Comment on above: Order Comment: [facility] has implemented the eGFR calculation approach that does not have a coefficient for race that conforms to the NKF-ASN Task Force Recommendations. Performed By: #### [id number] #### [facility] [address] [place], [place] [id number] Bob Mane M.D. [id number] ALT [Catalytic activity/Vol] 28 U/L Normal 0-35 U/L [facility] Comment on above: Order Comment: [facility] has implemented the eGFR calculation approach that does not have a coefficient for race that conforms to the NKF-ASN Task Force Recommendations. Performed By: #### [id number] #### [facility] [address] [place], [place] [id number] Bob Mane M.D. [id number] Anion gap [Moles/Vol] 17 mmol/L Normal 10-20 [facility] Comment on above: Order Comment: [facility] has implemented the eGFR calculation approach that does not have a coefficient for race that conforms to the NKF-ASN Task Force Recommendations. Performed By: #### [id number] #### [facility] [address] [place], [place] [id number] Bob Mane M.D. [id number] AST [Catalytic activity/Vol] 24 U/L Normal 0-35 U/L [facility] Comment on above: Order Comment: [facility] has implemented the eGFR calculation approach that does not have a coefficient for race that conforms to the NKF-ASN Task Force Recommendations. Performed By: #### [id number] #### [facility] [address] [place], [place] [id number] Bob Mane M.D. [id number] Bilirubin [Mass/Vol] 1.2 mg/dL Normal 0.0-1.3 [facility] Comment on above: Order Comment: [facility] has implemented the eGFR calculation approach that does not have a coefficient for race that conforms to the NKF-ASN Task Force Recommendations. Performed By: #### [id number] #### [facility] [address] [place] [id number] Bob Mane M.D. [id number] Calcium [Mass/Vol] 9.6 mg/dL Normal 8.4-10.2 [facility] Comment on above: Order Comment: [facility] has implemented the eGFR calculation approach that does not have a coefficient for race that conforms to the NKF-ASN Task Force Recommendations. Performed By: #### [id number] #### [facility] [address] [place], [place] [id number] Bob Mane M.D. [id number] Chloride [Moles/Vol] 107 mmol/L Normal 98-108 [facility] Comment on above: Order Comment: [facility] has implemented the eGFR calculation approach that does not have a coefficient for race that conforms to the NKF-ASN Task Force Recommendations. Performed By: #### [id number] #### [facility] [address] [place] [id number] Bob Mane M.D. [id number] Creatinine [Mass/Vol] 0.53 mg/dL Low 0.60-1.10 [facility] Comment on above: Order Comment: [facility] has implemented the eGFR calculation approach that does not have a coefficient for race that conforms to the NKF-ASN Task Force Recommendations. Performed By: #### [id number] #### [facility] [address] [place] [id number] Bob Mane M.D. [id number] EGFR 89 mL/min/1.73 m2 Normal >=60 [facility] Comment on above: Order Comment: [facility] has implemented the eGFR calculation approach that does not have a coefficient for race that conforms to the NKF-ASN Task Force Recommendations. Result Comment: Kate mated GFR was calculated using the 2020 CKD-EPI creatinine equation. Performed By: #### [id number] #### [facility] [address] [place] [id number] Bob Mane M.D. [id number] Glucose [Mass/Vol] 85 mg/dL Normal 65-99 [facility] Comment on above: Order Comment: [facility] has implemented the eGFR calculation approach that does not have a coefficient for race that conforms to the NKF-ASN Task Force Recommendations. Performed By: #### [id number] #### [facility] [address] [place] [address] [id number] Bob Mane M.D. [id number] HCO3 (Bld) [Moles/Vol] 23 mmol/L Normal 21-32 [facility] Comment on above: Order Comment: [facility] has implemented the eGFR calculation approach that does not have a coefficient for race that conforms to the NKF-ASN Task Force Recommendations. Performed By: #### [id number] #### [facility] [address] [place] [address] [id number] Bob Mane M.D. [id number] Potassium [Moles/Vol] 4.3 mmol/L Normal 3.5-5.1 [facility] Comment on above: Order Comment: [facility] has implemented the eGFR calculation approach that does not have a coefficient for race that conforms to the NKF-ASN Task Force Recommendations. Performed By: #### [id number] #### [facility] [address] [place] [id number] Bob Mane M.D. [id number] Protein [Mass/Vol] 6.8 g/dL Normal 6.0-8.0 [facility] Comment on above: Order Comment: [facility] has implemented the eGFR calculation approach that does not have a coefficient for race that conforms to the NKF-ASN Task Force Recommendations. Performed By: #### [id number] #### [facility] [address] [place] [id number] Bob Mane M.D. [id number] Sodium [Moles/Vol] 143 mmol/L Normal 135-145 [facility] Comment on above: Order Comment: [facility] has implemented the eGFR calculation approach that does not have a coefficient for race that conforms to the NKF-ASN Task Force Recommendations. Performed By: #### [id number] #### [facility] [address] [place] [address] [id number] Bob Mane M.D. [id number] Urea nitrogen [Mass/Vol] 29 mg/dL High 8-25 [facility] Comment on above: Order Comment: [facility] has implemented the eGFR calculation approach that does not have a coefficient for race that conforms to the NKF-ASN Task Force Recommendations. Performed By: #### [id number] #### [facility] [address] [place] [address] [id number] Bob Mane M.D. [id number] Urea nitrogen/Creatinine [Mass ratio] 54.7 mg/mg High 10.0-20.0 [facility] Comment on above: Order Comment: [facility] has implemented the eGFR calculation approach that does not have a coefficient for race that conforms to the NKF-ASN Task Force Recommendations. Performed By: #### [id number] #### [facility] [address] [place] [id number] Bob Mane M.D. [id number] OCT/HRT MAC[facility] OUon 03-04-20 24 OCT/HRT [facility] OU Right Eye Quality was good. Findings include abnormal foveal contour, drusen, subretinal fluid. Interval change is same. Recommendation for management is to continue treatment. Left Eye Quality was good. Findings include drusen. Interval change is same. Recommendation for management is to observe. Normal [facility] Right Eye Quality was good. Findings include abnormal foveal contour, drusen, subretinal fluid. Interval change is same. Recommendation for management is to continue treatment. Left Eye Quality was good. Findings include drusen. Interval change is same. Recommendation for management is to observe. ORDEROUT [facility] Radiology [facility]narrative[facility] [place] BEVACIZUM[facility] SOLN - ODon 0 11-19-2023 [facility] OCT/HRT [place] OUon 11-13-19 24 Radiology Study observation (narrative) [facility] OCT/HRT MAC[place] OUon 10-04-19 24 [facility] [place] BEVACIZUMAB SOLN - ODon 0 10-04-2023 [facility] OCT/HRT [place] OUon 09-30-19 Radiology Study observation (narrative) [facility] FUNDUS PHOTOGRAPHY-OUon 03- [facility] OCT/HRT [place] OUon 08-28-19 24 [facility] [place] BEVACIZUMAB SOLN - ODon 0 08-28-2023 [facility] No Panel Informationon Radiology Study observation (narrative) [facility] ECG 12 leadOrdered By: Jean Solomon on 08-19-2023 P Wave [employer] 8 degrees [facility] Work Phone: P-R Interval 150 ms [facility] Work Phone: Pathologist interpretation (Bld) [Interp] Normal sinus rhythm Normal ECG Confirmed by Jean Solomon MD ([id number]), state editor Mya Lindquist ([id number]) on 08/19/2023 6:48:42 AM [facility] Work Phone: Q-T Interval 406 ms [facility] Work Phone: QRS Duration 84 ms [facility] Work Phone: QTc 431 ms [facility] Work Phone: R [employer] -13 degrees [facility] Work Phone: Troponin T.cardiac [Mass/Vol] 37 ug/L degrees [facility] Work Phone: [facility] Work Phone: Laboratory - CoagulationOrde red By: Jean Solomon on 08-19-2023 ACT Coag (Bld) 68 s BPM [facility] Work Phone: Regadenoson (Lexiscan) nucle ar stress test with myocardial perfusionOrdered By: Yusuf Del Rio on 08-19-2023 ACT Kaolin induced method (PPP) 4 [facility] Work Phone: ACT Kaolin induced method (PPP) [Relative time] 80209.0 mmHg*bpm [facility] Work Phone: Baseline DBP 99 mmHg [employer] Work Phone: Baseline HR 82 bpm [facility] Work Phone: Baseline SBP 197 mmHg [employer] Work Phone: Estimated workload 1.0 METS [facility] Work Phone: Exercise/injection duration (sec) 0 [facility] Work Phone: Gentamicin [Susc] 0 mm [facility] Work Phone: Peak DBP 83 mmHg [employer] Phone: Peak HR 117 bpm [employer] Phone: Peak SBP 260 mmHg [employer] Phone: Percent HR 88 % [facility] Work Phone: Target HR 113 bpm [employer] Phone: Regadenoson (Lexiscan) nucle ar stress test with myocardial perfusionon 08-19-2023 Vasodilator stress E CG is negative for ischemia at the level of heart rate achieved. Vasodilator (regadenoson) stress test was performed . Hypertensive blood pressure response. Normal myocardial perfusion study. Stress Function Comments: Left ventricular systolic function is normal. The LV ejection fraction is greater than 65%. Stress Findings A pharmacological stress test was performed using regadenoson, 0.4 mg IV over 10-15 seconds, followed by radiopharmacological injection 10 seconds post infusion. Total stress time was 4 min and 0 sec. The patient reached the end of the protocol. No low level exercise was used during pharmacological stress test. The patient's hemodynamic response was adequate for diagnosis. Blood pressure demonstrated a hypertensive response. Heart rate demonstrated a normal response. The patient reported dyspnea during the stress test. ECG Baseline ECG is normal. The ECG shows normal sinus rhythm. Baseline ECG shows no ST-segment deviation. There were no arrhythmias during stress. There is no significant ST abnormalities during stress. There were no arrhythmias during recovery. The result of the stress ECG was negative for ischemia. Nuclear Study Quality Study technique: MPI, SPECT, multi, rest and stress, 1 day and gated. Overall image quality is good. CT attenuation correction was utilized. Perfusion Defect No perfusion defects. Perfusion Defect Conclusion There is no evidence of transient ischemic dilation (TID). Stress Function Comments Left ventricular systolic function is normal. The LV ejection fraction is greater than 65%. Stress Combined Conclusion Normal myocardial perfusion study. CT Findings No acute findings. Nuclear Prior Study There is no prior study available for comparison. CV RAD PACS STRESS Comprehensive metabolic 2000 panelon 08-18-2023 Albumin [Mass/Vol] 4.1 g/dL 3.5 - 4.8 g/dL [facility] ALP [Catalytic activity/Vol] 43 U/L [facility] ALT [Catalytic activity/Vol] 23 U/L [facility] Anion gap [Moles/Vol] 10 mmol/L 6 - 18 [facility] AST [Catalytic activity/Vol] 21 U/L [facility] Bilirubin [Mass/Vol] 1.1 mg/dL 0.3 - 1 .2 mg/dL [facility] Calcium [Mass/Vol] 8.9 mg/dL 8.9 - 10. 3 mg/dL [facility] Chloride [Moles/Vol] 105 mmol/L 98 - 10 7 mmol/L [facility] CO2 [Moles/Vol] 23 mmol/L 22 - 32 mmol/L [facility] Creatinine [Mass/Vol] 0.64 mg/dL 0.60 - 1.30 mg/dL [facility] GFR/1.73 sq M.predicted among non-blacks MDRD (S/P/Bld) [Vol rate/Area] 86 mL/min/{1.73_m2} - PINF [facility] th Comment on above: Calculation based on the Chronic Kidney Disease Epidemiology Collaboration (CKD-EPI) equation refit without adjustment for race. Glucose [Mass/Vol] 89 mg/dL 70 - 99 mg/dL [facility] Interpretation and review of laboratory results Abnormal [facility] Potassium [Moles/Vol] 3.9 mmol/L 3.6 - 5.1 mmol/L [facility] Protein [Mass/Vol] 6.6 g/dL 6.1 - 7.9 g/dL [facility] Sodium [Moles/Vol] 138 mmol/L 136 - 145 mmol/L [facility] Urea nitrogen [Mass/Vol] 27 mg/dL High 8 - 20 mg/dL [facility] Urea nitrogen/Creatinine [Mass ratio] 42.2 mg/mg High 12.0 - 20.0 [facility] F[facility]in D-dimer DDU (PPP) [Ma ss/Vol]on 08-18-2023 Fibrin D-dimer FEU (PPP) [Mass/Vol] NINF [facility] Interpretation and review of laboratory results Normal [facility] CUTOFF 0.49 ug/ml (F EU) At this cutoff level, the negative predictive value for this test is 100% for deep vein thrombosis (DVT) in patients with a low or moderate pre-test probability and 99.7% for pulmonary embolism (PE) in patients with a low or moderate pre-test probability. Clinical correlation is essential. [employer] Hemogram and platelets WO di fferential panel (Bld)on 08-18-2023 Basophils (Bld) [#/Vol] 0.05 10*3/uL [facility] Basophils/100 WBC (Bld) 0.8 % 0.0 - 2.0 % [facility] Eosinophils (Bld) [#/Vol] 0.04 10*3/uL [facility] Eosinophils/100 WBC (Bld) 0.7 % 0.0 - 7.0 % [facility] Erythrocyte distribution width (RBC) [Ratio] 13.1 % 11.0 - 14.8 % [facility] Hematocrit (Bld) [Volume fraction] 38.3 % 34.3 - 47.9 % [facility] Hemoglobin (Bld) [Mass/Vol] 13.0 g/dL 12.0 - 16.0 g/dL [facility] Immature granulocytes (Bld) [#/Vol] 0.02 10*3/uL K/mcL [facility] Immature granulocytes/100 WBC (Bld) 0.3 % 0.0 - 1.2 % [facility] Interpretation and review of laboratory results Abnormal [facility] Lymphocytes (Bld) [#/Vol] 1.62 10*3/uL [facility] Lymphocytes/100 WBC (Bld) 26.4 % 17.9 - 49.6 % [facility] MCH (RBC) [Entitic mass] 33.5 pg [facility] MCHC (RBC) [Mass/Vol] 33.9 g/dL 30.8 - 35.3 g/dL [facility] MCV (RBC) [Entitic vol] 98.7 fL [facility] [place] [facility] Monocytes (Bld) [#/Vol] 0.40 10*3/uL [facility] Monocytes/100 WBC (Bld) 6.5 % 0.0 - 12.0 % [facility] Neutrophils (Bld) [#/Vol] 4.00 10*3/uL [facility] Neutrophils/100 WBC (Bld) 65.3 % 38.1 - 75.5 % [facility] Platelet mean volume (Bld) [Entitic vol] 9.1 fL [facility] th Platelets (Bld) [#/Vol] 190 10*3/uL [facility] RBC (Bld) [#/Vol] 3.88 10*6/uL [facility] WBC (Bld) [#/Vol] 6.1 10*3/uL [facility] [place] [facility] Natriuretic peptide B [Mass/ Vol]on 08-18-2023 Interpretation and review of laboratory results Normal [facility] Natriuretic peptide B (Bld) [Mass/Vol] 57 pg/mL [facility] <100: CHF is unlikel y 100-400: Possible left ventricular dysfunction-unlikely acute decompensation >400: Suspicious for decompensated heart failure. [facility] I.cardiac panel Hig h sensitivity methodon 08-18-2023 Interpretation and review of laboratory results Normal [facility] Troponin I.cardiac High sensitivity method [Mass/Vol] 7 ng/L NINF - 14 ng/L [facility] Interpretation and review of laboratory results Normal [facility] Troponin I.cardiac High sensitivity method [Mass/Vol] 3 ng/L NINF - 14 ng/L [facility] XR Chest 1 Viewon 08-18-2023 No acute findings in the chest. -------- FINAL REPORT -------- Dictated By: Denis Powell Dictated Date: 08/18/2023 16:50 Assigned Physician: Denis Powell Reviewed and Electronically Signed By: Denis Powell Signed Date: 08/18/2023 16:51 Workstation ID: [id number] Transcribed By: Self Edit Transcribed Date: 08/18/2023 16:50 POWERSCRIBE EXAMINATION TYPE: XR CHEST 1 VIEW DATE OF EXAM: 08/18/2023 3:52 PM HISTORY: dyspnea COMPARISON: NONE FINDINGS: The heart size is within normal limits. Atherosclerotic calcification along the aortic arch. No airspace consolidation. No discernible pleural effusion or pneumothorax. Mild degenerative changes in the spine. POWERSCRIBE Denis Powell MD - 08/18/2023 EXAMINATION TYPE: XR CHEST 1 VIEW DATE OF EXAM: 08/18/2023 3:52 PM HISTORY: dyspnea COMPARISON: NONE FINDINGS: The heart size is within normal limits. Atherosclerotic calcification along the aortic arch. No airspace consolidation. No discernible pleural effusion or pneumothorax. Mild degenerative changes in the spine. IMPRESSION: No acute findings in the chest. -------- FINAL REPORT -------- Dictated By: Denis Powell Dictated Date: 08/18/2023 16:50 Assigned Physician: Denis Powell Reviewed and Electronically Signed By: Denis Powell Signed Date: 08/18/2023 16:51 Workstation ID: [id number] Transcribed By: Self Edit Transcribed Date: 08/18/2023 16:50 [facility] Radiology Study observation (narrative) [facility] XR Chest 1 ViewOrdered By: Gerson Powell on 08-18-2023 [facility] Work Phone: Vital Signs Date Time Vital Sign Value Performing Clinician Mihir ulloa 02-16-2025 12:41-0400 Body height 151.1 cm Ghazala Rodriguez MD Work Phone: [facility] 02-16-2025 12:41-0400 Body mass index (BMI) [Ratio] 19.03 kg/m2 Ghazala Rodriguez MD Work Phone: [facility] 02-16-2025 12:41-0400 Body temperature 98.1 [degF] Ghazala Rodriguez MD Work Phone: [facility] 02-16-2025 12:41-0400 Body weight 43.45 kg Ghazala Rodriguez MD Work Phone: [facility] 02-16-2025 12:41-0400 Diastolic blood pressure 74 mm[Hg] Ghazala Rodriguez MD Work Phone: [facility] 02-16-2025 12:41-0400 Heart rate 74 /min Ghazala Rodriguez MD Work Phone: [facility] 02-16-2025 12:41-0400 Respiratory rate 17 /min Ghazala Rodriguez MD Work Phone: [facility] 02-16-2025 12:41-0400 SaO2% (BldA) [Mass fraction] 96 % Ghazala Rodriguez MD Work Phone: [facility] 02-16-2025 12:41-0400 Systolic blood pressure 133 mm[Hg] Ghazala Rodriguez MD Work Phone: [facility] 08-17-2024 14:12-0500 Diastolic blood pressure 82 mm[Hg] Ghazala Rodriguez MD Work Phone: [facility] 08-17-2024 14:12-0500 Systolic blood pressure 150 mm[Hg] Ghazala Rodriguez MD Work Phone: [facility] 08-17-2024 14:02-0500 Body height 151.1 cm Ghazala Rodriguez MD Work Phone: [facility] 08-17-2024 14:02-0500 Body mass index (BMI) [Ratio] 18.87 kg/m2 Ghazala Rodriguez MD Work Phone: [facility] 08-17-2024 14:02-0500 Body temperature 98.4 [degF] Ghazala Rodriguez MD Work Phone: [facility] 08-17-2024 14:02-0500 Body weight 43.09 kg Ghazala Rodriguez MD Work Phone: [facility] 08-17-2024 14:02-0500 Heart rate 71 /min Ghazala Rodriguez MD Work Phone: [facility] 08-17-2024 14:02-0500 Respiratory rate 14 /min Ghazala Rodriguez MD Work Phone: [facility] 08-17-2024 14:02-0500 SaO2% (BldA) [Mass fraction] 96 % Ghazala Rodriguez MD Work Phone: [facility] 09-17-2023 13:13-0400 Body height 151.8 cm Tai Dozier MD Work Phone: [facility] 09-17-2023 13:13-0400 Body mass index (BMI) [Ratio] 18.71 kg/m2 Tai Dozier MD Work Phone: [facility] 09-17-2023 13:13-0400 Body weight 43.09 kg Tai Dozier MD Work Phone: [facility] 09-17-2023 13:13-0400 Diastolic blood pressure 75 mm[Hg] Tai Dozier MD Work Phone: [facility] 09-17-2023 13:13-0400 Heart rate 85 /min Tai Dozier MD Work Phone: [facility] 09-17-2023 13:13-0400 SaO2% (BldA) [Mass fraction] 97 % Tai Dozier MD Work Phone: [facility] 09-17-2023 13:13-0400 Systolic blood pressure 138 mm[Hg] Tai Dozier MD Work Phone: [facility] 09-03-2023 10:16-0400 Diastolic blood pressure 92 mm[Hg] Tai Dozier MD Work Phone: [facility] 09-03-2023 10:16-0400 Systolic blood pressure 155 mm[Hg] Tai Dozier MD Work Phone: [facility] 09-03-2023 09:59-0400 Body height 151.8 cm Tai Dozier MD Work Phone: [facility] 09-03-2023 09:59-0400 Body mass index (BMI) [Ratio] 18.83 kg/m2 Tai Dozier MD Work Phone: [facility] 09-03-2023 09:59-0400 Body weight 43.36 kg Tai Dozier MD Work Phone: [facility] 09-03-2023 09:59-0400 Heart rate 86 /min Tai Dozier MD Work Phone: [facility] 09-03-2023 09:59-0400 SaO2% (BldA) [Mass fraction] 95 % Tai Dozier MD Work Phone: [facility] 08-19-2023 20:02-0500 Body temperature 97.7 [degF] Jean Solomon MD Work Phone: [facility] 08-19-2023 20:02-0500 Diastolic blood pressure 80 mm[Hg] Jean Solomon MD Work Phone: [facility] 08-19-2023 20:02-0500 Heart rate 89 /min Jean Solomon MD Work Phone: [facility] 08-19-2023 20:02-0500 Respiratory rate 16 /min Jean Solomon MD Work Phone: [facility] 08-19-2023 20:02-0500 SaO2% (BldA) [Mass fraction] 96 % Jean Solomon MD Work Phone: [facility] 08-19-2023 20:02-0500 Systolic blood pressure 146 mm[Hg] Jean Solomon MD Work Phone: [facility] 08-18-2023 23:00-0500 Body height 152.4 cm Jean Solomon MD Work Phone: [facility] 08-18-2023 23:00-0500 Body mass index (BMI) [Ratio] 18.71 kg/m2 Jean Solomon MD Work Phone: [facility] 08-18-2023 23:00-0500 Body weight 43.45 kg Jean Solomon MD Work Phone: [facility] 04-02-2023 13:20-0400 Body height 151.8 cm Tai Dozier MD Work Phone: [facility] 04-02-2023 13:20-0400 Body mass index (BMI) [Ratio] 18.91 kg/m2 Tai Dozier MD Work Phone: [facility] 04-02-2023 13:20-0400 Body weight 43.55 kg Tai Dozier MD Work Phone: [facility] 04-02-2023 13:20-0400 Diastolic blood pressure 68 mm[Hg] Tai Dozier MD Work Phone: [facility] 04-02-2023 13:20-0400 Heart rate 84 /min Tai Dozier MD Work Phone: [facility] 04-02-2023 13:20-0400 SaO2% (BldA) [Mass fraction] 97 % Tai Dozier MD Work Phone: [facility] 04-02-2023 13:20-0400 Systolic blood pressure 137 mm[Hg] Tai Dozier MD Work Phone: [facility] 03-18-2023 11:21-0400 Diastolic blood pressure 76 mm[Hg] Tai Dozier MD Work Phone: [facility] 03-18-2023 11:21-0400 Systolic blood pressure 173 mm[Hg] Tai Dozier MD Work Phone: [facility] 03-18-2023 10:34-0400 Body height 151.8 cm Tai Dozier MD Work Phone: [facility] 03-18-2023 10:34-0400 Body mass index (BMI) [Ratio] 18.91 kg/m2 Tai Dozier MD Work Phone: [facility] 03-18-2023 10:34-0400 Body weight 43.55 kg Tai Dozier MD Work Phone: [facility] 03-18-2023 10:34-0400 Heart rate 78 /min Tai Dozier MD Work Phone: [facility] 03-18-2023 10:34-0400 SaO2% (BldA) [Mass fraction] 98 % Tai Dozier MD Work Phone: [facility] 09-13-2022 13:40-0400 Diastolic blood pressure 84 mm[Hg] Tai Dozier MD Work Phone: [facility] 09-13-2022 13:40-0400 Systolic blood pressure 142 mm[Hg] Tai Dozier MD Work Phone: [facility] 09-13-2022 13:03-0400 Body height 152.4 cm Tai Dozier MD Work Phone: [facility] 09-13-2022 13:03-0400 Body mass index (BMI) [Ratio] 18.12 kg/m2 Tai Dozier MD Work Phone: [facility] 09-13-2022 13:03-0400 Body weight 42.09 kg Tai Dozier MD Work Phone: [facility] 09-13-2022 13:03-0400 Heart rate 75 /min Tai Dozier MD Work Phone: [facility] 09-13-2022 13:03-0400 SaO2% (BldA) [Mass fraction] 97 % Tai Dozier MD Work Phone: [facility] Encounters Encounter Date Encounter Type Care Provider Facility Start: 05-02-2025 ambulatory GHAZALA RODRIGUEZ [facility] Start: 03-23-2025 ambulatory GHAZALA RODRIGUEZ [facility] Start: 02-17-2025 End: 02-17-2025 Follow-up encounter Ghazala Rodriguez MD Work Phone: [facility] Comment on above: Comprehensive [employer] Panel Start: 02-16-2025 End: 02-16-2025 Orders Only Ghazala Rodriguez MD Work Phone: [facility] Start: 02-16-2025 End: 02-16-2025 Patient encounter procedure Ghazala Rodriguez MD Work Phone: [facility] Comment on above: General medical exam (Primary Dx); Hypertension, unspecified type; At low risk for fall Start: 02-16-2025 End: 02-16-2025 Patient encounter status Ghazala Rodriguez MD Work Phone: [facility] Work Phone: Start: 02-16-2025 End: 02-16-2025 ambulatory GHAZALA RODRIGUEZ Facility:[facility] Start: 02-16-2025 End: 02-16-2025 Encounter for general adult medical examination without abnormal findings GHAZALA RODRIGUEZ [facility] Start: 02-09-2025 End: 02-09-2025 Documentation procedure Ghazala Rodriguez MD Work Phone: [facility] [facility] Comment on above: MWV OUTREACH (APPT: 02/16/25) Start: 01-06-2025 End: 01-06-2025 Patient encounter procedure Melvin Harding MD Work Phone: 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 Comment on above: Hypertension, unspec ified type (Primary Dx); Macular degeneration, unspecified laterality, unspecified type; At low risk for fall; Healthcare maintenance Start: 08-17-2024 End: 08-17-2024 Patient encounter status Ghazala Rodriguez MD Work Phone: [facility] Start: 08-17-2024 End: 08-18-2024 Orders Only Ghazala Rodriguez MD Work Phone: 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); Intermediate stage 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; Branch retinal vein occlusion of left eye, unspecified complication status; 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 Start: 04-29-2024 ambulatory MELVIN YANOGA Facili ty:[facility] Start: 04-29-2024 End: 04-29-2024 Patient encounter procedure Melvin Harding MD Work Phone: [facility] Comment on above: 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; Intermediate stage 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 Start: 09-30-2023 End: 09-30-2023 Patient encounter procedure Melvin Harding MD Work Phone: [facility] Comment on above: 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); Intermediate stage 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; Branch retinal vein occlusion of left eye, unspecified complication status Start: 09-17-2023 End: 09-17-2023 Office outpatient visit 25 minutes Tai Dozier MD Work Phone: [facility] Comment on above: Hypertension, unspec ified type (Primary Dx); Encounter for osteoporosis screening in asymptomatic postmenopausal patient Start: 09-03-2023 End: 09-03-2023 Office outpatient visit 25 minutes Tai Dozier MD Work Phone: [facility] Comment on above: Hypertension, unspec ified type (Primary Dx); 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 (HCC); Nonexudative age-related macular degeneration of left eye, unspecified stage; SBO (small bowel obstruction) (HCC) Start: 08-21-2023 End: 08-22-2023 Office outpatient new 45 minutes Melvin Harding MD Work Phone: [facility] [place] Comment on above: 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); Intermediate stage 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; 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; Pseudophakia of both eyes Start: 08-18-2023 End: 08-19-2023 Emergency department patient visit Jean Solomon MD Work Phone: [facility] Comment on above: Chest pain, unspecif ied type (Primary Dx) Start: 08-18-2023 End: 08-19-2023 Evaluation and management of inpatient Jean Solomon MD Work Phone: [facility] Start: 05-01-2023 End: 05-01-2023 ambulatory [facility] Start: 04-02-2023 End: 04-06-2023 ambulatory [facility] Start: 04-02-2023 End: 04-02-2023 Office outpatient visit 25 minutes Tai Dozier MD Work Phone: [facility] Comment on above: Dizziness (Primary D x); Tension headache; Hypertension, unspecified type; Other skin changes; Congestion of right ear Start: 03-18-2023 End: 03-18-2023 Patient encounter procedure Tai Dozier MD Work Phone: [facility] Comment on above: At low risk for fall (Primary Dx); Encounter for immunization; General medical exam; Hypertension, unspecified type; Grief; Need for lipid screening Start: 03-18-2023 End: 03-18-2023 Patient encounter status Tai Dozier MD Work Phone: [facility] Start: 01-02-2023 Refill Tai Dozier MD Work Phone: [facility] Comment on above: Hypertension, unspec ified type (Primary Dx) Start: 09-13-2022 End: 09-13-2022 Office outpatient new 45 minutes Tai Dozier MD Work Phone: [facility] Comment on above: Hypertension, unspec ified type (Primary Dx); Glaucoma of left eye, unspecified glaucoma type; SBO (small bowel obstruction) (HCC); Diverticulosis; Hemorrhoids, unspecified hemorrhoid type; History of colon surgery; Positive colorectal cancer screening using Cologuard test; Hearing difficulty of both ears Procedures Date Procedure Procedure Detail Performing Clinician Start: 02-16-2025 Comprehensive metabo lic panel Ghazala Rodriguez MD Work Phone: Start: 01-06-2025 Computerized ophthal shauna imaging retina Melvin Harding MD Work Phone: Start: 01-06-2025 Fundus photography w/interpretation & report Melvin Harding MD Work Phone: Start: 01-06-2025 Intravitreal njx pharmacologic agt spx Melvin Harding MD Work Phone: Start: 09-30-2024 Computerized ophthal shauna imaging retina Melvin Harding MD Work Phone: Start: 09-30-2024 Fundus photography w/interpretation & report Melvin Harding MD Work Phone: Start: 09-30-2024 Intravitreal njx pharmacologic agt spx Melvin Harding MD Work Phone: Start: 08-17-2024 Comprehensive metabo lic panel Ghazala Rodriguez MD Work Phone: Start: 08-17-2024 Lipid panel Ghazala Rodriguez MD Work Phone: Start: 07-06-2024 End: 07-06-2024 Fundus photography w/interpretation & report Melvin Harding MD Work Phone: Start: 07-06-2024 Intravitreal njx pharmacologic agt spx Melvin Harding MD Work Phone: Start: 04-29-2024 Computerized ophthal shauna imaging retina Melvin Harding MD Work Phone: Start: 04-29-2024 Intravitreal njx pharmacologic agt spx Melvin Harding MD Work Phone: Start: 03-04-2024 Computerized ophthal shauna imaging retina Melvin Harding MD Work Phone: Start: 11-13-2023 Computerized ophthal shauna imaging retina Melvin Harding MD Work Phone: Start: 11-13-2023 Intravitreal njx pharmacologic agt spx Melvin Harding MD Work Phone: Start: 09-30-2023 Computerized ophthal shauna imaging retina Melvin Harding MD Work Phone: Start: 09-30-2023 Intravitreal njx pharmacologic agt spx Melvin Harding MD Work Phone: Start: 08-21-2023 End: 08-21-2023 Fundus photography w/interpretation & report Melvin Harding MD Work Phone: Start: 08-21-2023 Intravitreal njx pharmacologic agt spx Melvin Harding MD Work Phone: Start: 08-19-2023 Myocardial spect mul tiple studies Brayan Dee DO Work Phone: Start: 08-18-2023 Fibrin dgradj produc ts d-dimer quantitative Brayan Dee DO Work Phone: Start: 08-18-2023 CBC W Auto Different ial panel - Blood Jean Solomon MD Work Phone: Start: 08-18-2023 Comprehensive metabo lic panel Jean Solomon MD Work Phone: Start: 08-18-2023 Ecg routine ecg w/le ast 12 lds trcg only w/o i&r Jean Solomon MD Work Phone: Start: 08-18-2023 Radiologic exam ches t single view Jean Solomon MD Work Phone: Start: 09-13-2022 Adult depression scr eening assessment Tai Dozier MD Work Phone: Plan of Treatment Date Care Activity Detail Author Start: 04-02-2028 Lipid panel Cholesterol Screening (Lipid Panel) [facility] Start: 02-16-2026 Medicare Wellness Visit Medicare Wellness Visit [facility] Start: 02-09-2026 Fall risk assessment Falls Risk Assessment [facility] Start: 08-24-2025 End: 08-24-2025 Patient encounter procedure 08/24/2025 1:00 PM EST Office Visit [place] [address] [place] [phone] Ghazala Rodriguez MD [address] [place] [address] [place] [address] [facility] Start: 08-17-2025 Depression screening using PHQ-9 (Patient Health Questionnaire 9) score Depression Screening/Follow-Up (PHQ-2/9) [facility] Start: 08-17-2025 Fall risk assessment Falls Risk Assessment [facility] Start: 05-12-2025 End: 05-12-2025 Patient encounter procedure 05/12/2025 1:10 PM EST Office Visit [facility] [address] [place] [address] Melvin Harding MD [address] [facility] 5th [place] [address] [facility] [place] Start: 03-31-2025 Screening for osteoporosis DEXA SCAN DISCUSSION [facility] Start: 02-21-2025 Influenza vaccination [facility] VACCINE (#[facility]) [facility] Start: 02-16-2025 End: 02-16-2025 Patient encounter procedure 02/16/2025 1:00 PM EDT Office Visit [place] [address] [place] [phone] Ghazala Rodriguez MD [address] [place] [address] [place] [address] [facility] [place] Start: 01-06-2025 End: 01-06-2025 Patient encounter procedure 01/06/2025 1:40 PM EDT Office Visit [facility] [place] [address] [facility] [address] [place] [address] Melvin Harding MD [address] [place] [address] 5th [place] [address] [facility] [place] Start: 09-30-2024 End: 09-30-2024 Patient encounter procedure 09/30/2024 1:50 PM EDT Office Visit [facility] [place] [address] [place] [address] [address] [place] [address] Melvin Harding MD [address] [place] [address] 5th [place] [address] [facility] [place] Start: 09-19-2024 Tetanus vaccination [facility] Start: 08-25-2024 End: 08-25-2024 Patient encounter procedure 08/25/2024 10:00 AM EST Office Visit [facility] [address] [place] [address] [address] [place] [address] Constantin Bentley DO [address] [place] [address] [address] [place] [address] [facility] Start: 08-19-2024 Falls Risk Assessment Falls Risk Assessment [facility] Start: 08-18-2024 Hypertension/CHF/CAD Annual BMP Blood Test Hypertension/CHF/CAD Annual BMP Blood Test [facility] Start: 07-06-2024 End: 07-06-2024 Patient encounter procedure 07/06/2024 10:50 AM EST Office Visit [facility] [address] [place] [phone] Melvin Harding MD [address] [place] [address] [facility] Start: 04-29-2024 End: 04-29-2024 Patient encounter procedure 04/29/2024 1:10 PM EST Office Visit [facility] [address] [place], [place] [id number] Melvin Harding MD [address] 5th [place] [address] [facility] Start: 03-18-2024 Fall risk assessment Falls Risk Assessment [facility] Start: 03-18-2024 History and physical examination, annual for health maintenance Wellness Visit [facility] Start: 03-18-2024 Medicare Wellness Visit Medicare Wellness Visit [facility] Start: 02-22-2024 COVID-19 VACCINE ( season) COVID-19 VACCINE ( season) [facility] Start: 02-22-2024 COVID-19 VACCINE ( season) COVID-19 VACCINE ( season) [facility] Start: 02-22-2024 COVID-19 Vaccine ( season) COVID-19 Vaccine ( season) [facility] Start: 02-22-2024 Influenza vaccination INFLUENZA VACCINE (#1) [facility] Start: 01-08-2024 End: 01-08-2024 Patient encounter procedure 01/08/2024 1:20 PM EDT Office Visit [facility] [place] [id number] [facility] [address] [place], [place] [id number] Melvin Harding MD [address] [place] [address] [facility] [place] Start: 12-11-2023 End: 12-11-2023 Patient encounter procedure 12/11/2023 2:00 PM EDT Office Visit [facility] [address] [place] [phone] OhBrayan jama MD [address] [place] [address] [facility] Start: 11-13-2023 End: 11-13-2023 Patient encounter procedure 11/13/2023 10:30 AM EDT Office Visit [facility] [place] [id number] [facility] [address] [place] [address] Melvin Harding MD [facility] [address] [place] [phone] [facility] [place] Start: 09-30-2023 End: 09-30-2023 Patient encounter procedure 09/30/2023 1:50 PM EDT Office Visit [facility] [address] [place] [phone] Melvin Harding MD [address] [place] [phone] [facility] Start: 09-14-2023 Depression screening using PHQ-9 (Patient Health Questionnaire 9) score Depression Screening (PHQ-2/9) [facility] Start: 08-19-2023 Adolescent depression screening assessment Depression Screening [facility] Start: 08-19-2023 Medicare Annual Wellness Visit Medicare Annual Wellness Visit [facility] Start: 08-19-2023 Screening for osteoporosis Osteoporosis Screening (Bone Density Screening) [facility] Start: 08-19-2023 Social Influencers of Health Screening Social Influencers of Health Screening [facility] Start: 05-02-2023 End: 05-02-2023 Patient encounter procedure 05/02/2023 10:00 AM EST Office Visit [facility] [address] [place] [address] [address] [place] [address] Tai Dozier MD [facility] [facility] [address] [place] [address] [facility] Start: 03-18-2023 End: 03-18-2023 Patient encounter procedure [facility] Start: 02-21-2023 COVID-19 VACCINE () COVID-19 VACCINE ( season) [facility] Start: 02-21-2023 COVID-19 Vaccine ( season) COVID-19 Vaccine () [facility] Start: 02-21-2023 Influenza vaccination Sequential Influenza Vaccine (#1) [facility] Start: 02-21-2022 Influenza vaccination Sequential Influenza Vaccine (#1) [facility] Start: 12-30-2018 Screening for malignant neoplasm of breast MAMMOGRAM SCREENING DISCUSSION [facility] Start: 12-13-2010 Respiratory Syncytial Virus Immunization: Risk, 60-74 Risk, or 75+ (1 - 1-dose 75+ series) Respiratory Syncytial Virus Immunization: Risk, 60-74 Risk, or 75+ (1 - 1-dose 75+ series) [facility] Start: 12-13-2010 RSV VACCINE (1 - 1-dose 75+ series) RSV VACCINE (1 - 1-dose 75+ series) [facility] Start: 12-13-2000 Fall risk assessment Falls Risk Assessment [facility] Start: 12-13-2000 Pneumococcal Vaccine: 65+ Years (1 of 1 - PCV) Pneumococcal Vaccine: 65+ Years (1 of 1 - PCV) [facility] Start: 12-13-2000 Pneumococcal Vaccine: Age 65+ (1 - PCV) Pneumococcal Vaccine: Age 65+ (1 - PCV) [facility] Start: 1995 RSV Immunization Patients 60+ Years Old (1 - 1-dose 60+ series) RSV Immunization Patients 60+ Years Old (1 - 1-dose 60+ series) [facility] Start: 1995 RSV VACCINE (1 - 1-dose 60+ series) RSV VACCINE (1 - 1-dose 60+ series) [facility] Start: 12-13-1985 Administration of herpes zoster vaccine Zoster Vaccines (1 of 2) [facility] Start: 12-13-1985 Zoster vaccine hzv live for subcutaneous use ZOSTER (SHINGLES) VACCINE (1 of 2) [facility] Start: 12-13-1985 Zoster Vaccines (1 of 2) Zoster Vaccines (1 of 2) [facility] Start: 12-13-1980 Screening for malignant neoplasm of colon COLORECTAL CANCER SCREENING DISCUSSION [facility] Start: 1975 Screening for malignant neoplasm of breast MAMMOGRAM SCREENING DISCUSSION [facility] Start: 12-13-1956 Screening for malignant neoplasm of cervix CERVICAL CANCER SCREENING DISCUSSION [facility] Start: 12-13-1954 DTaP,Tdap,and Td Vaccines (1 - Tdap) DTaP,Tdap,and Td Vaccines (1 - Tdap) [facility] Start: 12-13-1938 History and physical examination, annual for health maintenance Wellness Visit [facility] Start: 06-14-1936 COVID-19 Vaccine (#1) COVID-19 Vaccine (#1) [facility] Start: 1935 Screening for osteoporosis [facility] Start: 1935 Tetanus vaccination Tetanus: Every 10yrs [facility] End: 04-02-2024 CBC panel - Blood by Automated count CBC Lab Routine Dizziness 1 Occurrences starting 04/02/2023 until 04/02/2024 [facility] Work Phone: Comment on above: 1 Occurrences starting 04/02/2023 until 04/02/2024 CBC panel - Blood by Automated count CBC Lab Routine Dizziness 04/02/2023 2:38 PM EDT [facility] End: 08-17-2025 Complete blood count with white cell differential, manual CBC and Differential Lab Routine Hypertension, unspecified type 1 Occurrences starting 08/17/2024 until 08/17/2025 [facility] Comment on above: 1 Occurrences starting 08/17/2024 until 08/17/2025 End: 04-02-2024 Comprehensive metabolic 2000 panel - Serum or Plasma Comprehensive Metabolic Panel Lab Routine Dizziness 1 Occurrences starting 04/02/2023 until 04/02/2024 [facility] Comment on above: 1 Occurrences starting 04/02/2023 until 04/02/2024 Comprehensive metabo lic 2000 panel - Serum or Plasma Comprehensive Metabolic Panel Lab Routine Dizziness 04/02/2023 2:38 PM EDT [facility] End: 08-17-2025 Comprehensive metabolic 2000 panel - Serum or Plasma Comprehensive Metabolic Panel Lab Routine Hypertension, unspecified type 1 Occurrences starting 08/17/2024 until 08/17/2025 [facility] Work Phone: Comment on above: 1 Occurrences starting 08/17/2024 until 08/17/2025 End: 02-16-2026 Comprehensive metabolic 2000 panel - Serum or Plasma Comprehensive Metabolic Panel Lab Routine Hypertension, unspecified type 1 Occurrences starting 02/16/2025 until 02/16/2026 [facility] Work Phone: Comment on above: 1 Occurrences starting 02/16/2025 until 02/16/2026 End: 09-16-2024 DXA Skeletal system.axial Views for bone density XR Bone Density DEXA Axial Imaging Routine Encounter for osteoporosis screening in asymptomatic postmenopausal patient 1 Occurrences starting 09/17/2023 until 09/16/2024 [facility] Work Phone: Comment on above: 1 Occurrences starting 09/17/2023 until 09/16/2024 End: 06-21-2025 Fundus photography w/interpretation & report FUNDUS PHOTOGRAPHY-OU OK - OFFICE PERFORMED IMAGING Routine 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 6 Occurrences starting 07/05/2024 until 06/21/2025, 1 completed [facility] Comment on above: 6 Occurrences starting 07/05/2024 until 06/21/2025, 1 completed End: 03-18-2024 Lipid 1996 panel - Serum or Plasma Lipid Panel Lab Routine Need for lipid screening 1 Occurrences starting 03/18/2023 until 03/18/2024 [facility] Work Phone: Comment on above: 1 Occurrences starting 03/18/2023 until 03/18/2024 End: 08-17-2025 Lipid 1996 panel - Serum or Plasma Lipid Panel Lab Routine Hypertension, unspecified type 1 Occurrences starting 08/17/2024 until 08/17/2025 [facility] Comment on above: 1 Occurrences starting 08/17/2024 until 08/17/2025 End: 09-11-2024 Optical coherence tomography of retina OCT/HRT MACULA OU OK - OFFICE PERFORMED IMAGING Routine 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 12 Occurrences starting 09/30/2023 until 09/11/2024, 1 completed [facility] Comment on above: 12 Occurrences starting 09/30/2023 until 09/11/2024, 1 completed End: 09-17-2025 Optical coherence tomography of retina OCT/HRT MACULA OU OK - OFFICE PERFORMED IMAGING Routine 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 6 Occurrences starting 09/29/2024 until 09/17/2025, 1 completed [facility] Comment on above: 6 Occurrences starting 09/29/2024 until 09/17/2025, 1 completed End: 09-15-2024 OK BEVACIZUMAB SOLN - OD OK BEVACIZUMAB SOLN - OD OK - OFFICE PERFORMED Routine 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 Every 4 Weeks for 6 Occurrences starting 09/30/2023 until 09/15/2024, 1 completed [facility] Comment on above: Every 4 Weeks for 6 Occurrences starting 09/30/2023 until 09/15/2024, 1 completed End: 08-17-2025 Thyrotropin [Units/volume] in Serum or Plasma TSH with Reflex Free T4 Lab Routine Hypertension, unspecified type 1 Occurrences starting 08/17/2024 until 08/17/2025 [facility] Comment on above: 1 Occurrences starting 08/17/2024 until 08/17/2025 Immunizations Immunization Date Immunization Notes Care Provider [facility] 03-17-2024 influenza, high dose seasonal, preservative-free Ghazala Rodriguez MD Work Phone: [facility] 03-17-2024 influenza virus vacc ine, unspecified formulation Melvin Harding MD Work Phone: [facility] 03-18-2023 Influenza IIV4 high dose 65 and Older Tai Dozier MD Work Phone: [facility] 03-18-2023 flu vacc [id number] 5yr up,-PF (FLUZONE HIGH-DOSE) syringe Tai Dozier MD Work Phone: [facility] 03-18-2023 influenza virus vacc ine, unspecified formulation Melvin Harding MD Work Phone: [facility] 02-14-2022 pneumococcal conjuga te vaccine, 13 valent Ghazala Rodriguez MD Work Phone: [facility] 05-10-2021 Influenza IIV4 high dose 65 and Older Ghazala Rodriguez MD Work Phone: [facility] 10-01-2020 Pfizer SARS-CoV-2 Vaccination Ghazala Rodriguez MD Work Phone: [facility] 09-03-2020 Pfizer SARS-CoV-2 Vaccination Ghazala Rodriguez MD Work Phone: [facility] 03-03-2018 Seasonal, trivalent, recombinant, injectable influenza vaccine, preservative free Ghazala Rodriguez MD Work Phone: [facility] 03-27-2017 influenza, high dose seasonal, preservative-free Ghazala Rodriguez MD Work Phone: [facility] 03-23-2016 influenza virus vacc ine, whole virus Ghazala Rodriguez MD Work Phone: [facility] 09-19-2014 tetanus toxoid, redu shabana diphtheria toxoid, and acellular pertussis vaccine, adsorbed Ghazala Rodriguez MD Work Phone: [facility] 10-25-2010 pneumococcal polysaccharide vaccine, 23 valent Ghazala Rodriguez MD Work Phone: [facility] 07-07-2009 novel influenza-H1N1 -09, all formulations Ghazala Rodriguez MD Work Phone: [facility] Payers Date Payer Category Payer Medicare (Managed Care) MEDICARE HU[employer] HMO PPO [id number] 2024 Medicare HMO HU[employer] MCR GOLD PLUS HMO [id number] 2024 Medicare [id number] 2022 Unknown [id number]. [id number] 2022 Unknown [id number] 2000 Medicare [id number]. [id number] 2000 Medicare [id number] 1935 Unknown [id number] 2.16.840.1.766340.3.579.2. 900 1935 Unknown [id number] 2.16.840.1.331113.3.579.2. 900 1935 Unknown [id number] 2.16.840.1.657267.3.579.2. 900 1935 Unknown [id number] 2.16.840.1.390344.3.579.2. 900 1935 Unknown [id number] 2.16.840.1.159435.3.579.2. 594 1935 Unknown [id number] 2.16.840.1.593997.3.579.2. 594 1935 Unknown [id number] 2.16.840.1.400878.3.579.2. 594 1935 Unknown [id number] 2.16.840.1.050064.3.579.2. 594 1935 Unknown [id number] 2.16.840.1.764367.3.579.2. 594 1935 Unknown [id number] 2.16840.1.440842.3.579.2. 903 1935 Unknown [id number] 2.16840.1.839709.3.579.2. 903 1935 Unknown [id number] 2.16840.1.226031.3.579.2. 903 1935 Unknown [id number] 2.16840.1.921676.3.579.2. 903 Unknown [id number] 2.16840.1.060772.3.579.2. 383 Unknown [id number] 2.840.1.692717.3.579.2. 383 Social History Date Type Detail Facility Start: 09-13-2022 End: 08-21-2023 Tobacco smoking status NHIS Never smoked tobacco [facility] Start: 09-13-2022 End: 08-21-2023 Tobacco use and exposure Smokeless tobacco non-user [facility] Start: 09-13-2022 End: 02-16-2025 Alcohol intake Current drinker of alcohol (finding) [facility] Start: 09-13-2022 History SDOH Financial 4 [facility] Start: 09-13-2022 History SDOH Transport Med 2 [facility] Start: 1935 Sex Assigned At Not on file [facility] Start: 09-13-2022 End: 08-17-2024 History of Social function [facility] Start: 09-13-2022 End: 08-17-2024 Tobacco use panel [facility] How hard is it for y ou to pay for the very basics like food, housing, medical care, and heating Not very hard [facility] Adult Depression Screening Assessment 5 [facility] (I/We) worried wheth er (my/our) food would run out before (I/we) got money to buy more. DK or Refused [facility] Start: 07-02-2022 Gender identity Identifies as female gender (finding) [facility] Start: 07-02-2022 Sexual orientation Heterosexual (finding) [facility] Start: 08-18-2023 Alcohol intake Lifetime non-drinker (finding) [employer] Has the electric, ga s, oil, or water company threatened to shut off services in your home in past 12Mo No [facility] (I/We) worried wheth er (my/our) food would run out before (I/we) got money to buy more. Never true [facility] Start: 08-21-2023 Sex Female (finding) [facility] Clinical Notes 09-13-2022 to 02-16-2025 Ghazala Rodriguez MD - 02/16/2025 12:56 PM EDTPatient Sabra Warner MA - 02/09/2025 3:07 PM EDImelda Montanez - 01/06/2025 1:40 PM EDSherlyn Bowser MA - 09/30/2024 1:50 PM EDT Note Date & Type Note Facility 02-16-2025 History of Present illness Narrative Subjective: Salome Hsieh is a 89 y.o. female here for a Medicare Annual Wellness Visit. HPI Pt has macular degeneration. Was doing injections in eyes. Seeing Dr. Harding at [facility]. Lives with grandson. Daughter helps with transportation. No falls. Review of Systems Constitutional: Negative for chills and fever. Respiratory: Negative for shortness of breath. Cardiovascular: Negative for chest pain, palpitations and leg swelling. Gastrointestinal: Negative for blood in stool. Genitourinary: Negative for hematuria. Neurological: Negative for dizziness. Reviewed by Provider: Tobacco Allergies Meds Problems Med Hx Surg Hx Fam Hx Care Team Patient Care Team: Ghazala Rodriguez MD as PCP - General (Family Medicine) Pharmacy / Equipment Co. (DME) [id number] - [place], [place] - [address] [facility] [address] [facility] [id number] Medicare Risk Assessment Do you have an Advanced Directive (Living Will and/or Durable Power of Machine Operator General for Health Care)? If not, would you like more information about Advanced Directives?: Yes (From [place]) What is your exercise level?: Moderate (like brisk walking) What is your diet?: Regular Can you prepare your own meals?: Yes Do you have trouble with finding transportation?: No Because of any health problems, do you need the help of another person with your personal care needs? (For example, eating, bathing, dressing, or getting around the house.): No Does your home have any of the following?: None of the above Does your home have grab bars in bathrooms or handrails on stairs and steps?: (!) Only grab bars in the bathroom During the past four weeks, how would you rate your health in general?: Very Good Whether or not you use a hearing aid, do you think you have a hearing problem or do others think you have a hearing problem?: No Whether or not you use glasses or contacts, do you have difficulty driving, watching television, reading, or doing any of your daily activities because of your eyesight?: (!) Yes In the past six months, have you had an unexplained weight loss of 10 pounds or more?: No Do you take your medications as prescribed?: I do not miss doses of my medications During the past four weeks, how much have you been bothered by emotional problems such as feeling anxious, depressed, irritable, sad, or downhearted and blue?: Not at all During the past four weeks, has your physical and emotional health limited your social activites with family, friends, neighbors, or groups? : Not at all Provider/Supplier Name and Specialty: Dr. Rodriguez Falls Risk Assessment Is Patient Ambulatory?: Y Fell in past year: 0 (No) How many falls in the past year?: 0 Did any of these falls result in an injury?: No Unsteady when walks: 0 (No) Worried about fallin (No) Advised to use cane/walker?: 0 (No) Holds onto furniture/arambula: 0 (No) Uses hands to stand up from a chair: 0 (No) Trouble stepping onto curb: 0 (No) Rushes to toilet: 0 (No) Lost feeling in feet: 0 (No) Medicine makes me light-headed: 0 (No) Medicine for sleep or mood: 0 (No) Often feel sad/depressed: 0 (No) Patient Self Risk Assessment Score: 0 Medicare Mini Cog Step 1: Three Word Registration Version Used: Version 1: Banana, [place], Chair Step 2: Clock Drawing Step 2 score: Normal clock - 2 points Clock has all numbers placed in the correct sequence & position (e.g., 12, 3, 6 and 9 are in anchor positions) with no missing or duplicate numbers. Hands are pointing to the 11 & 2 (11:10). Hand length is not scored. Step 3: Three Word Recall Step 3: Three Word Recall Score: 2 Words Recalled Total score = Word Recall score + Clock Draw score A cut point of <3 on the Mini-Cog has been validated for dementia screening, but many individuals with clinically meaningful cognitive impairment will score higher. A cut point of <4 may indicate a need for further evaluation of cognitive status.: 4 5-Year Plan: Health Maintenance Topic Date Due Zoster Vaccines (1 of 2) Never done Respiratory Syncytial Virus Immunization: Risk, 60-74 Risk, or 75+ (1 - 1-dose 75+ series) Never done COVID-19 Vaccine ( - 2023- season) 2024 Tetanus: Every 10yrs 09/19/2024 Influenza Vaccine (1) 02/21/2025 Depression Screening/Follow-Up (PHQ-2/9) 08/17/2025 Falls Risk Assessment 02/09/2026 Medicare Wellness Visit 02/16/2026 Pneumococcal Vaccine: Age 50+ Completed Dexa Scan Completed Immunization History Administered Date(s) Administered H1N1 All Forms 07/07/2009 INFLUENZA IIV3 18 YO OR > FLUBLOK [address]41 03/03/2018 Influenza IIV4 high dose 65 and Older 05/10/2021, 03/18/2023 Influenza Whole 03/23/2016 Influenza, high dose seasonal 03/27/2017 Pfizer SARS-CoV-2 Vaccination 09/03/2020, 10/01/2020 Pneumococcal Conjugate 13-Valent (Prevnar 13) 02/14/2022 Pneumococcal Polysaccharide (Pneumovax 23) 10/25/2010 Tdap 09/19/2014 influenza HD-IIV3 (FLUZONE HIGH DOSE) 65 years old or greater - syringe 03/17/2024 Objective: BP 133/74 Pulse 74 Temp 98.1 F (36.7 C) Resp 17 Ht 4' 11.5 Wt 43.5 kg (95 lb 12.8 oz) SpO2 96% BMI 19.03 kg/m Hearing/Vision Screen Vision Screening Right eye Left eye Both eyes Without correction With correction unable to 20/100 20/70 Physical Exam Constitutional: General: She is not in acute distress. Appearance: Normal appearance. She is not ill-appearing, toxic-appearing or diaphoretic. HENT: Head: Normocephalic and atraumatic. Cardiovascular: Rate and Rhythm: Normal rate and regular rhythm. Heart sounds: Normal heart sounds. Pulmonary: Effort: Pulmonary effort is normal. No respiratory distress. Breath sounds: Normal breath sounds. No wheezing or rales. Abdominal: General: There is no distension. Palpations: Abdomen is soft. Tenderness: There is no abdominal tenderness. Musculoskeletal: Right lower leg: No edema. Left lower leg: No edema. Skin: General: Skin is warm and dry. Neurological: General: No focal deficit present. Mental Status: She is alert and oriented to person, place, and time. Psychiatric: Mood and Affect: Mood normal. Behavior: Behavior normal. Thought Content: Thought content normal. Judgment: Judgment normal. Assessment/Plan: Diagnoses and all orders for this visit: General medical exam Hypertension, unspecified type - losartan (COZAAR) 100 MG tablet; Take 1 (one) tablet (100 mg total) by mouth daily . - amLODIPine (NORVASC) 2.5 MG tablet; Take 1 (one) tablet (2.5 mg total) by mouth daily . - Comprehensive Metabolic Panel; Future At low risk for fall Vaccinations today per orders. Vaccination counseling provided including which vaccinations are to be administered today, their indication(s), and potential side effects. All questions answered. CDC vaccine information sheet provided for each vaccine administered. Discussed elevated Body Mass Index (BMI): Advised regular exercise. Discussed elevated Body Mass Index (BMI): Advised healthy and appropriate diet. Rationale: Overweight (Findings) BMI Return in about 6 months (around 08/19/2025). Patient Instructions (the written plan) and additional handouts provided to the patient with their After Visit Summary. I am managing Salome Hsieh for complex chronic condition(s) serving as the focal point for the patient's care for consistency and continuity over time. documented in this encounter [facility] 02-15-2025 Instructions Ghazala Rodriguez MD - 02/15/2025 7:38 AM EDT Recommend shingles, tetanus, RSV vaccines from pharmacy. Can get flu vaccine when available [facility] Our goal is to provide you with exceptional patient care, and we strive to do this for every patient, every visit. Since we care about you and your experience, you may receive a patient satisfaction survey in the mail, via email or text message from [facility]. We truly welcome your feedback, positive and negative, and ask that you complete the survey to let us know how we are doing. Please skip over any question(s) that may not apply to your visit. Appointment Policy: We care about your health and we want to assist you if there is something preventing you from making it to your appointment. We know unexpected events occur that may prevent you from making your appointment and we understand. If you are not able to make it to your appointment, we would greatly appreciate if you could let us know. Patients arriving more than 15 minutes after their scheduled appointment may be asked to reschedule their appointment, this is at provider discretion. Any patient who fails to arrive for a scheduled appointment without canceling will be marked as a no show. Referrals: If were referred to another physician/specialist, we will send him or her your referral and any necessary clinical information. They will call you to schedule your appointment. If you have not heard, from the specialist that we are referring you to within 7-10 business days please call the specialist office or give our office a call at and we will be happy to assist. Advanced Imaging (MRI, CT, etc.) If your provider ordered advanced imaging during your visit today, you may be contacted by the requested locations you chose. If you have not heard anything about your test schedule or results in 5-7 days please call our office at [phone]. Test & Lab Results: Even though you may receive your test results in your MyChart, please allow up to 5 business days to be contacted by our office regarding your results. Be assured, if any test results are critical, our office will contact you as soon as possible to review the results with you. If your labs are normal and you have not heard from us after 5 business days, please give our office a call at or send the provider a [email or web address] message and we will be happy to look into this. Medication Refills: If you have a refill request outside of a scheduled appointment or after hours, please call your pharmacy to verify if you have any refills remaining. If a new prescription is needed, please give our office a call at during regular business hours or send the provider a [employer] message and allow up to 2 business days for us to complete this. If your insurance requires your medication(s) to be prior authorized, we will work with your insurance company to get these medication(s) prior authorized for you. Please allow up to 7-10 business days for this to be completed. [email or web address] Messaging: [email or web address] is a wonderful way to communicate with your provider and often allows for quicker response times compared to calling our office. Please consider sending your provider a [email or web address] message with your non-urgent questions or medication refill requests. Please do not use [email or web address] to send any messages requiring urgent or emergent attention. By selecting to send a message, you acknowledge you are seeking medical advice for non-urgent issues and that you are aware that you may not get a response for 2 business days. For issues requiring urgent or emergent attention, please call [phone]. Important Numbers: [facility] Billing Questions or MyChart Support or Medical Financial Assistance Central Scheduling or STEADI Low Risk Patient Instructions: Your Falls Screening today shows that you are at low risk for falls. To further protect yourself from falls and maintain your independence, we recommend: 1. Read through the brochure, What You Can Do to Prevent Falls (from [facility]). 2. Go through the brochure, Check for Safety: A Home Fall Prevention Checklist for Older Adults (from [facility]), and make changes as recommended. 3. Join a community falls prevention program: Stepping On, a 7-week evidence based program that teaches balance exercises and fall prevention strategies Misha Chi for older adults, group exercise that teaches Misha Chi forms that reduce fall risk (weight shifting, postural alignment and control, and coordinated movements of the arms, legs, head, and trunk) Matter of Balance, an evidence based program designed to reduce the fear of falling and increase activity levels of older adults OR an exercise class for strength and balance. 4. Take your Vitamin D with or without Calcium, as determined by your healthcare provider. 5. Get your vision and hearing checked annually. Falls At Home Each year, thousands of older Americans fall at home. Many of them are seriously injured, and some are disabled. In 2011, nearly 23,000 people over age 65 and 2.4 million were treated in emergency departments because of falls. Falls are often due to hazards that are easy to overlook but easy to fix. This checklist will help you find and fix those hazards in your home. The checklist asks about hazards found in each room of your home. For each hazard, the checklist tells you how to fix the problem. At the end of the checklist, you ll find other tips for preventing falls. FLOORS: Look at the floor in each room. Q: When you walk through a room, do you have to walk around furniture? A. Ask someone to move the furniture so your path is clear Q: Do you have throw rugs on the floor? A. Remove the rugs or use double-sided tape or a non-slip backing so the rugs won t slip. Q: Are there papers, books, towels, shoes, magazines, boxes, blankets, or other objects on the floor? A.paper supervisor things that are on the floor. Always keep objects off the floor. Q: Do you have to walk over or around wires or cords (like lamp, telephone, or extension cords)? A. Coil or tape cords and wires next to the wall so you can t trip over them. If needed, have an electrician powerhouse put in another outlet. STAIRS AND STEPS: Look at the stairs you use both inside and outside your home. Q: Are there papers, shoes, books, or other objects on the stairs? A. paper supervisor things on the stairs. Always keep objects off stairs. Q: Are some steps broken or uneven? A. Fix loose or uneven steps. Q: Are you missing a light over the stairway? A. Have an electrician powerhouse put in an overhead light at the top and bottom of the stairs. Q: Do you have only one light switch for your stairs (only at the top or at the bottom of the stairs)? A. Have an electrician powerhouse put in a light switch at the top and bottom of the stairs. You can get light switches that glow. Q: Has the stairway light bulb burned out? A. Have a friend or family member change the light bulb. Q: Is the carpet on the steps loose or torn? A. Make sure the carpet is firmly attached to every step, or remove the carpet and attach non-slip rubber treads to the stairs. Q: Are the handrails loose or broken? Is there a handrail on only one side of the stairs? A. Fix loose handrails or put in new ones. Make sure handrails are on both sides of the stairs and are as long as the stairs. KITCHEN: Look at your kitchen and eating area. Q: Are the things you use often on high shelves? A. Move items in your cabinets. Keep things you use often on the lower shelves (about waist level). Q: Is your step stool unsteady? A. If you must use a step stool, get one with a bar to hold on to. Never use a chair as a step stool. BATHROOMS: Look at all your bathrooms. Q: Is the tub or shower floor slippery? A. Put a non-slip rubber mat or self-stick strips on the floor of the tub or shower. Q: Do you need some support when you get in and out of the tub or up from the toilet? A. Have grab bars put in next to and inside the tub and next to the toilet. BEDROOMS: Look at all your bedrooms. Q: Is the light near the bed hard to reach? A. Place a lamp close to the bed where it s easy to reach. Q: Is the path from your bed to the bathroom dark? A. Put in a night-light so you can see where you re walking. Some night-lights go on by themselves after dark. Other Things You Can Do to Prevent Falls Do exercises that improve your balance and make your legs stronger. Exercise also helps you feel better and more confident. Have your doctor or pharmacist look at all the medicines you take, even [id number]-[id number] medicines. Some medicines can make you sleepy or dizzy. Have your eyes checked by an eye doctor at least once a year and update your glasses. Get up slowly after you sit or lie down. Wear shoes both inside and outside the house. Avoid going barefoot or wearing slippers. Improve the lighting in your home. Put in brighter light bulbs. Florescent bulbs are bright and cost less to use. It s safest to have uniform lighting in a room. Add lighting to dark areas. Hang lightweight curtains or shades to reduce glare. [place] a contrasting color on the top edge of all steps so you can see the stairs better. For example, use a light color paint on dark wood. To access this brochure online, please visit the CDC website at http://www.cdc.gov/steadi/pdf/billy ck_for_safety_brochure-a.pdf Chair Rise Exercise What it does: Strengthens the muscles in your thighs & buttocks. Goal: To do this exercise without using your hands as you become stronger. How to do it: 1. Sit toward the front of a sturdy chair with your knees bent & feet flat on the floor shoulder-width apart 2. Rest your hands lightly on the seat on either side of you, keeping your back & neck straight & and chest slightly forward. 3. Breathe in slowly. Lean forward & feel your weight on the front of your feet. 4. Breathe out and slowly stand up, using your hands as little as possible. 5. Pause for a full breath in & out. 6. Breathe in as you slowly sit down. Do not let yourself collapse back down into the chair. Rather, control your lowering as much as possible. 7. Breathe out. Repeat 10-15 times. If this number is too hard for you when you first start practicing this exercise, begin with fewer and work up to this number. Rest for a minute & then do a final set of 10-15. For detailed instructions, please visit the CDC website at http://www.cdc.gov/steadi/pdf/beau ir_rise_exercise-a.pdf Stepping On is an evidence based program proven to reduce falls in older adults. It is a workshop offered once a week for seven weeks. In a small-group setting, you will learn balance exercises and develop specific knowledge and skills to prevent falls. Older adults who should attend are those who: are at risk of falling who have fallen one or more times lives at home are able to walk without the help of another person Local guest experts provide information on exercise, safety, vision, and medications. Classes are offered at [facility]. To find out specifics about a class, please call [phone]. Misha chi: Moving for Better Balance involves low impact exercise. The 12-week class is offered for three hours per week and is led by a trained certified nursing assistant instructor. It is intended for people aged 60 and older. Participants learn and perform a program of eight forms that progress from easy to more difficult. The program can accommodate persons with various physical conditions. Health Benefits of Misha Chi: Moving for Better Balance: Improved social and mental well-being, Improved balance and physical functioning, Improved confidence in conducting daily activities, Reduced risk of falling and sustaining associated injuries, and Maintained independence and improved quality of life. To find a Misha Chi program in your area or additional resources about fall prevention please contact: [facility] Violence and Injury Prevention Program at [phone] or [email or web address] A Matter of Balance: Managing Concerns about Falls is an evidence based program designed to reduce the fear of falling and increase activity levels of older adults. A trained technical planner leads 8 two-hour sessions for small groups of older adults. The class is intended for people 60 and older who are at risk of falling have a fear of falling or restrict activities who have fallen in the past are interested in improving flexibility, balance, and strength. Participants will learn to view falls as controllable, set goals to increase activity levels, and reduce fall risks at home. Classes are offered in all [address] [place] [address] in [place]. For more information about specific classes near you, please visit [email or web address]. Thank you for choosing our office for your Medicare Wellness Visit. Below you will find the plans we discussed today for your future medical treatments. Please keep this plan in a visible location so you can refer to it often and let our office know if you have any questions. 5-Year Plan Health Maintenance Topic Date Due Zoster Vaccines (1 of 2) Never done Respiratory Syncytial Virus Immunization: Risk, 60-74 Risk, or 75+ (1 - 1-dose 75+ series) Never done COVID-19 Vaccine ( - 2023- season) 2024 Tetanus: Every 10yrs 09/19/2024 Influenza Vaccine (1) 02/21/2025 Depression Screening/Follow-Up (PHQ-2/9) 08/17/2025 Falls Risk Assessment 02/09/2026 Medicare Wellness Visit 02/16/2026 Pneumococcal Vaccine: Age 50+ Completed Dexa Scan Completed documented in this encounter [facility] 02-09-2025 History of Present illness Narrative Spoke to patient at this time, agreeable to completion of wellness visit at next scheduled appointment. [facility] outreach flowsheets completed with patient and filed. Health Maintenance Due Name Date Due Outreach Comments Do you have an Advanced Directive (Living Will and/or Durable Power of Machine Operator General for Health Care)? If not, would you like more information about Advanced Directives?: Yes (From [place]) What is your exercise level?: Moderate (like brisk walking) What is your diet?: Regular Can you prepare your own meals?: Yes Do you have trouble with finding transportation?: No Because of any health problems, do you need the help of another person with your personal care needs? (For example, eating, bathing, dressing, or getting around the house.): No Does your home have any of the following?: None of the above Does your home have grab bars in bathrooms or handrails on stairs and steps?: (!) Only grab bars in the bathroom During the past four weeks, how would you rate your health in general?: Very Good Whether or not you use a hearing aid, do you think you have a hearing problem or do others think you have a hearing problem?: No Whether or not you use glasses or contacts, do you have difficulty driving, watching television, reading, or doing any of your daily activities because of your eyesight?: (!) Yes In the past six months, have you had an unexplained weight loss of 10 pounds or more?: No Do you take your medications as prescribed?: I do not miss doses of my medications During the past four weeks, how much have you been bothered by emotional problems such as feeling anxious, depressed, irritable, sad, or downhearted and blue?: Not at all During the past four weeks, has your physical and emotional health limited your social activites with family, friends, neighbors, or groups? : Not at all Provider/Supplier Name and Specialty: Dr. Rodriguez Is Patient Ambulatory?: Y Fell in past year: 0 (No) How many falls in the past year?: 0 Did any of these falls result in an injury?: No Unsteady when walks: 0 (No) Worried about fallin (No) Advised to use cane/walker?: 0 (No) Holds onto furniture/arambula: 0 (No) Uses hands to stand up from a chair: 0 (No) Trouble stepping onto curb: 0 (No) Rushes to toilet: 0 (No) Lost feeling in feet: 0 (No) Medicine makes me light-headed: 0 (No) Medicine for sleep or mood: 0 (No) Often feel sad/depressed: 0 (No) Patient Self Risk Assessment Score: 0 Sabra Freire MA documented in this encounter [facility] 01-17-2025 Note Procedure date: 01/06. Right Eye Clear. Disc findings include normal observations. Vessel findings include normal. Macula findings include CNV, drusen, edema, RPE mottling. Drusen. Interval change is same. Recommendation for management is to observe. Left Eye Clear. Disc findings include normal observations. Vessel findings include normal. Macula findings include RPE mottling, drusen. Drusen. Interval change is same. Recommendation for management is to observe. [facility] 01-17-2025 Note Procedure date: 01/06. Right Eye Quality was good. Findings include abnormal foveal contour, drusen, subretinal fluid. Interval change is same. Recommendation for management is to observe. Left Eye Quality was good. Findings include drusen. Interval change is same. Recommendation for management is to observe. [facility] 01-17-2025 Note Procedure date: 01/06. Right Eye Clear. Disc findings include normal observations. Vessel findings include normal. Macula findings include CNV, drusen, edema, RPE mottling. Drusen. Interval change is same. Recommendation for management is to observe. Left Eye Clear. Disc findings include normal observations. Vessel findings include normal. Macula findings include RPE mottling, drusen. Drusen. Interval change is same. Recommendation for management is to observe. [facility] 01-17-2025 Note Procedure date: 01/06. Right Eye Quality was good. Findings include abnormal foveal contour, drusen, subretinal fluid. Interval change is same. Recommendation for management is to observe. Left Eye Quality was good. Findings include drusen. Interval change is same. Recommendation for management is to observe. ORDEROUT 01-17-2025 Note Table formatting fro m the original result was not included. Procedure date: 01/06/2025. Intraocular injection: 1.25 mg Bevacizumab 2.25 MG/0.09ML Route: Intravitreal, Site: Right Eye [facility]: [id number], Lot: [id number], Expiration date: 04/03/2025, Waste: 0.04 mL Notes Bevacizumab (Avastin) Intraocular Injection Right Eye - OPHTHALMOLOGY PROCEDURE NOTE PROCEDURE PERFORMED BY: Melvin Harding MD SYSTEMS SOFTWARE ENGINEER(S): None ATTENDING: Melvin Harding MD PROCEDURE DATE: 01/06/2025 PROCEDURE START TIME: 10:41 AM INDICATIONS: Treatment of ICD-10-CM 1. 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 Intermediate stage 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 H35.3122 FUNDUS PHOTOGRAPHY-OU 3. Dry eye syndrome of bilateral lacrimal glands H04.123 EYE: Right (OD) PROCEDURE GOALS: To preserve or improve vision, reduce retinal swelling, and cause regression of abnormal blood vessels. EBL: None Specimen: None Complications: None CONSENT: Informed consent was obtained prior to the procedure after discussion of the risks, benefits, alternatives, and expected outcomes were discussed with the patient. The consent was placed in the chart. The possibilities of infection, reaction to medication, retinal tear, bleeding, thromboembolic events such as myocardial infarction or cerebral vascular accident, the need for additional procedures, failure to diagnosis a condition, and creating a complication requiring surgery were discussed with the patient. The OFF LABEL use of the drug was discussed with the patient. Additional risks, benefits and alternatives were discussed with the patient. The patient concurred with the proposed plan and signed the consent form, giving informed consent. DOES THIS PROCEDURE REQUIRE A UNIVERSAL PROTOCOL? Yes. [place] Protocol is required. Pre-procedure verification was completed. The patient verified the site and procedure. The consent was confirmed, procedure sites were identified and marked, and a timeout was called before the start of the procedure. ANESTHESIA: Subconjunctival lidocaine 4% PROCEDURE DETAILS: The operative eye was prepped with Betadine. Using a single dose sterile syringe the following medication was injected: Avastin (Bevacizumab 1.25 mg/0.05 ml). The intravitreal pars plana injection was placed 3.5-4.0 mm from the limbus. Following the injection the eye was irrigated with sterile saline and an antibiotic drop was instilled. [facility] 01-17-2025 Note Table formatting fro m the original result was not included. Procedure date: 01/06/2025. Intraocular injection: 1.25 mg Bevacizumab 2.25 MG/0.09ML Route: Intravitreal, Site: Right Eye [facility]: [id number], Lot: [id number], Expiration date: 04/03/2025, Waste: 0.04 mL Notes Bevacizumab (Avastin) Intraocular Injection Right Eye - OPHTHALMOLOGY PROCEDURE NOTE PROCEDURE PERFORMED BY: Melvin Harding MD SYSTEMS SOFTWARE ENGINEER(S): None ATTENDING: Melvin Harding MD PROCEDURE DATE: 01/06/2025 PROCEDURE START TIME: 10:41 AM INDICATIONS: Treatment of ICD-10-CM 1. 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 Intermediate stage 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 H35.3122 FUNDUS PHOTOGRAPHY-OU 3. Dry eye syndrome of bilateral lacrimal glands H04.123 EYE: Right (OD) PROCEDURE GOALS: To preserve or improve vision, reduce retinal swelling, and cause regression of abnormal blood vessels. EBL: None Specimen: None Complications: None CONSENT: Informed consent was obtained prior to the procedure after discussion of the risks, benefits, alternatives, and expected outcomes were discussed with the patient. The consent was placed in the chart. The possibilities of infection, reaction to medication, retinal tear, bleeding, thromboembolic events such as myocardial infarction or cerebral vascular accident, the need for additional procedures, failure to diagnosis a condition, and creating a complication requiring surgery were discussed with the patient. The OFF LABEL use of the drug was discussed with the patient. Additional risks, benefits and alternatives were discussed with the patient. The patient concurred with the proposed plan and signed the consent form, giving informed consent. DOES THIS PROCEDURE REQUIRE A UNIVERSAL PROTOCOL? Yes. [place] Protocol is required. Pre-procedure verification was completed. The patient verified the site and procedure. The consent was confirmed, procedure sites were identified and marked, and a timeout was called before the start of the procedure. ANESTHESIA: Subconjunctival lidocaine 4% PROCEDURE DETAILS: The operative eye was prepped with Betadine. Using a single dose sterile syringe the following medication was injected: Avastin (Bevacizumab 1.25 mg/0.05 ml). The intravitreal pars plana injection was placed 3.5-4.0 mm from the limbus. Following the injection the eye was irrigated with sterile saline and an antibiotic drop was instilled. [facility] 01-06-2025 History of Present illness Narrative REASON FOR VISIT Salome Hsieh presents to clinic today for a Follow-Up Patient visit. Chief Complaint Light Sensitivity HISTORY OF PRESENT ILLNESS HPI 89 year old female patient returns to clinic for Wet AMD follow up. Patient states vision is stable in OU, with no changes. She states light sensitivity is better with new glasses and new prescription sunglasses. She states her eyes are tired more easily with reading now a days. Ocular Medications: Latanorpost at bedtime OU, last drop last night AREDS 2 BID PO Pharmacy verified Last edited by Leta Montanez on 01/06/2025 1:42 PM. REVIEW OF SYSTEMS >15 minutes was spent with patient updating allergies, medications, and medical history. Allergies, medications & history reviewed & updated by Leta Montanez Referring Physician: Chief Complaint Patient presents with Light Sensitivity HPI 89 year old female patient returns to clinic for Wet AMD follow up. Patient states vision is stable in OU, with no changes. She states light sensitivity is better with new glasses and new prescription sunglasses. She states her eyes are tired more easily with reading now a days. Ocular Medications: Latanorpost at bedtime OU, last drop last night AREDS 2 BID PO Pharmacy verified Last edited by Leta Montanez on 01/06/2025 1:42 PM. Referring Doctor: Self Self No address on file Medications: Current Outpatient Medications Medication Sig amLODIPine 5 MG tablet aspirin 81 MG Chew Tab chewable tablet Chew 1 tablet daily. (Patient not taking: Reported on 01/06/2025) B Complex Vitamins (Vitamin B-Complex) tablet Take 1 tablet by mouth. bevacizumab 1.25 MG/0.[address] 0.05 mL in right eye every 28 days. Bevacizumab 2.25 MG/0.09ML Solution Prefilled Syringe 0.05 mL by Intravitreal route once for 1 dose. cholecalciferol 50 MCG (2000 UNIT) tablet Take 1 tablet by mouth daily. Latanoprost 0.005 % Solution ophthalmic solution losartan 100 MG tablet Probiotic Product (Align) Chew Tab Chew 1 tablet daily. Vitamin E (Vitamin E/D-Alpha Natural) 268 MG (400 UNIT) capsule Take 400 Units by mouth daily. PMH: Past Medical History: Diagnosis Date High blood pressure Macular degeneration of both eyes PSH Past Surgical History: Procedure Laterality Date SMALL BOWEL SURGERY UTERINE SURGERY Family History: Family History Problem Relation Age of Onset Heart Failure Mother Social History Social History Socioeconomic History Marital status: Tobacco Use Smoking status: Never Smokeless tobacco: Never Social Drivers of Health Financial Resource Strain: Low Risk (08/17/2024) Received from [facility] Overall Financial Resource Strain (CARDIA) Difficulty of Paying Living Expenses: Not very hard Food Insecurity: No Food Insecurity (08/17/2024) Received from [facility] Hunger Vital Sign Worried About Running Out of Food in the Last Year: Never true Ran Out of Food in the Last Year: Never true Transportation Needs: No Transportation Needs (08/17/2024) Received from [facility] PRAPARE - Transportation Lack of Transportation (Medical): No Lack of Transportation (Non-Medical): No Review of Systems: I reviewed the patient's review of systems, and I have updated the medical record. Base Eye Exam Visual Acuity (Snellen - Linear) Right Left Dist cc CF at 3' 20/25 Dist ph cc NI 20/20 Correction: Glasses Tonometry (Tonopen, 1:54 PM) Right Left Pressure 15 15 Latanoprost at bedtime OS, last night AREDS 2 BID PO Open Angles Pupils Pupils Shape React Right PERRL Round Brisk Left PERRL Round Brisk Visual Dominguez Left Right Full Restrictions Partial inner superior temporal, inferior temporal, superior nasal, inferior nasal deficiencies Extraocular Movement Right Left Full Full Neuro/Psych Oriented x3: Yes Mood/Affect: Normal Dilation Both eyes: 1.0% Mydriacyl, 2.5% Phenylephrine @ 1:54 PM Slit Lamp and Fundus Exam External Exam Right Left External Normal Normal Slit Lamp Exam Right Left Lids/Lashes Normal Normal Conjunctiva/Sclera White and quiet White and quiet Cornea Clear Clear Anterior Chamber Deep and quiet Deep and quiet Iris Round and dilated Round and dilated Lens PCIOL PCIOL Anterior Vitreous vit syn vit syn Fundus Exam Right Left Disc Normal Normal C/D Ratio 0.3 0.3 Macula drusen, RPE mottling, focal area of atrophy, inactive CNV BRVO INF/Rebecca, IRH inf/rebecca (few remaining mostly resovled), RPE motttling Vessels Normal Normal Periphery Scattered drusen throughout fundus Scattered drusen throughout fundus Refraction Wearing Rx Sphere Cylinder [employer] Add Right -1.00 +0.50 090 +2.50 Left [place] Sphere 090 +2.50 Age: 2m Type: Bifocal Assessment and Plan: #. 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 Hager - onset 3 wks ago (08/04/23) - recent hospitalization (08/18/23) d/t high BP - macular edema and hemorrhaging noted today - Photos taken to document disease severity and to follow chronicity of disease changes over time. - OCT obtained to evaluate for RPE disturbance, evidence of subclinical subretinal/intraretinal fluid, signs of focal retinal/RPE atrophy. - Treatment alternatives reviewed including anti-VEGF therapy (including Avastin, Eylea and Lucentis) - Evidence for use of anti-VEGF therapy (Avastin vs Lucentis) Discussed as well as off-label use of Avastin and risks associated with both medications including retinal detachment, endophthalmitis, RPE tear, severe vision loss, and theoretical systemic risks such as heart attack and stroke - Amsler grid and instructions reviewed - S/Sx of new CNV, endophthalmitis reviewed. - recommend treating with a series of Anti-VEGF injections. Patient elects to proceed with injections. R/B/I/A discussed with patient at length and informed consent obtained Avastin OD: 08/21/2023 injection tolerated well, pt to return back in 1 mo Avastin OD: 09/30/23 Imaging shows significant improvement in the swelling, will continue with q1mo intervals - discussed gene therapy research with patient Avastin OD: 11/13/2023 Imaging continues to show improvement; return back as scheduled 01/08/24 - continue with q6-7week intervals Avastin OD: 01/08/2024 8w since last injection; stable imaging - continue q8w injections Avastin OD: 03/04/2024- keep at 8 weeks Avastin OD: 04/29/2024 - improved imaging at 8 weeks; recommended spreading intervals to 10 weeks - Plan for Optos and DFE at next visit Avastin OD 07/06/2024 - 10w since last injection; imaging shows improvement OD; stable OS Slit lamp exam and peripheral DFE performed today, both retinas appear stable on today's exam - Recommended extending to 12 weeks for next injection Avastin OD: 09/30/2024 - Imaging stable at 3m; recommended continuing current intervals -Optos/DFE at next visit Avastin OD: 01/06/2025 - stable imaging at 3m since last injection Slit lamp exam and peripheral DFE performed today, both retinas appear stable on today's exam - Endorses blurred vision in the evenings when reading; likely due to dryness - see notes below - Discussed progression of dry component of AMD has caused area of atrophy in the right eye; due to guarded visual prognosis, no recurrent edema or hemorrhages - could consider holding injections if stable at next visit - Return in 4-6 months; sooner PRN #. Intermediate stage nonexudative age-related macular degeneration of both eyes - Onset unknown - FH ? - Explained the nature of the condition and how it typically progressed overtime - Explained to patient that is a slow progressive disease typically and only 20% of patients have severe vision loss due to either advance geographic dry AMD or wet AMD - Symptoms of the Neovascular AMD discussed - No bleeding or swelling or other signs of exudation found on today's exam - OCT and fundus photo and autofluorescence done to help stage and monitor the disease - AREDS 2 vitamins - Monitor amsler grid - No smoking - Consume green leafy vegetables - Sun glasses 01/06/2025 - Discussed progression of dry component of AMD has caused area of atrophy in the right eye; due to guarded visual prognosis, no recurrent edema or hemorrhages - could consider holding injections if stable at next visit #. 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 Dry eye syndrome of bilateral lacrimal glands - Notes intermittent blurred vision in the evenings when reading - Nature of condition discussed with patient - Warm compresses and artificial tears Referring Doctor: Nikki Hager, OD [address] [place] [address] SPEC AND SWAB for injections NEXT VISIT Tropicamide 1% 1 drop Both eyes x 1 Phenylephrine 2.5% 1 drop to Both eyes x 1 Evert applanation: Both Eyes OCT Macula: OU Optos: OU Follow up in 4 months POSSIBLE Avastin OD if changes on OCT; otherwise hold injection I, Gretta Bettencourt, acted as a scribe for Melvin Harding MD for this note of 01/06/2025 2:56 PM. I have reviewed the dictated documentation as scribed by Gretta CLARK and it accurately reflects the work performed and the decisions made. I saw and independently examined this patient today. I discussed my findings and the therapeutic plan with the patient. I agree with the history, physical examination, and medical decisions as outlined. I have reviewed the documentation and it accurately reflects the work performed and the decisions made. Melvin Harding M.D. documented in this encounter [facility] 10-04-2024 Note Procedure date: 09/30. Right Eye Clear. Disc findings include normal observations. Vessel findings include normal. Macula findings include CNV, drusen, edema, RPE mottling. Drusen. Interval change is same. Recommendation for management is to continue treatment. Left Eye Clear. Disc findings include normal observations. Vessel findings include normal. Macula findings include RPE mottling, drusen. Drusen. Interval change is same. Recommendation for management is to observe. [facility] 10-04-2024 Note Procedure date: 09/30. Right Eye Clear. Disc findings include normal observations. Vessel findings include normal. Macula findings include CNV, drusen, edema, RPE mottling. Drusen. Interval change is same. Recommendation for management is to continue treatment. Left Eye Clear. Disc findings include normal observations. Vessel findings include normal. Macula findings include RPE mottling, drusen. Drusen. Interval change is same. Recommendation for management is to observe. [facility]OUT 10-04-2024 Note Procedure date: 09/30. Right Eye Quality was good. Findings include abnormal foveal contour, drusen, subretinal fluid. Interval change is same. Recommendation for management is to continue treatment. Left Eye Quality was good. Findings include drusen. Interval change is same. Recommendation for management is to observe. [facility] 10-04-2024 Note Procedure date: 09/30. Right Eye Quality was good. Findings include abnormal foveal contour, drusen, subretinal fluid. Interval change is same. Recommendation for management is to continue treatment. Left Eye Quality was good. Findings include drusen. Interval change is same. Recommendation for management is to observe. RADIOLOGY 10-04-2024 Note Table formatting fro m the original result was not included. Procedure date: 09/30/2024. Intraocular injection (0.09 mL bevacizumab): 1.25 mg Bevacizumab 2.25 MG/0.09ML Route: Intravitreal, Site: Right Eye [facility]: [id number], Lot: [id number], Expiration date: 01/04/2025, Waste: 0.04 mL Notes Bevacizumab (Avastin) Intraocular Injection Right Eye - OPHTHALMOLOGY PROCEDURE NOTE PROCEDURE PERFORMED BY: Melvin Harding MD SYSTEMS SOFTWARE ENGINEER(S): None ATTENDING: Melvin Harding MD PROCEDURE DATE: 09/30/2024 PROCEDURE START TIME: 3:38 PM INDICATIONS: Treatment of ICD-10-CM 1. 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 Intermediate stage 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 H35.3122 FUNDUS PHOTOGRAPHY-OU EYE: Right (OD) PROCEDURE GOALS: To preserve or improve vision, reduce retinal swelling, and cause regression of abnormal blood vessels. EBL: None Specimen: None Complications: None CONSENT: Informed consent was obtained prior to the procedure after discussion of the risks, benefits, alternatives, and expected outcomes were discussed with the patient. The consent was placed in the chart. The possibilities of infection, reaction to medication, retinal tear, bleeding, thromboembolic events such as myocardial infarction or cerebral vascular accident, the need for additional procedures, failure to diagnosis a condition, and creating a complication requiring surgery were discussed with the patient. The OFF LABEL use of the drug was discussed with the patient. Additional risks, benefits and alternatives were discussed with the patient. The patient concurred with the proposed plan and signed the consent form, giving informed consent. DOES THIS PROCEDURE REQUIRE A UNIVERSAL PROTOCOL? Yes. [place] Protocol is required. Pre-procedure verification was completed. The patient verified the site and procedure. The consent was confirmed, procedure sites were identified and marked, and a timeout was called before the start of the procedure. ANESTHESIA: Subconjunctival lidocaine 4% PROCEDURE DETAILS: The operative eye was prepped with Betadine. Using a single dose sterile syringe the following medication was injected: Avastin (Bevacizumab 1.25 mg/0.05 ml). The intravitreal pars plana injection was placed 3.5-4.0 mm from the limbus. Following the injection the eye was irrigated with sterile saline and an antibiotic drop was instilled. [facility] 10-04-2024 Note Table formatting fro m the original result was not included. Procedure date: 09/30/2024. Intraocular injection (0.09 mL bevacizumab): 1.25 mg Bevacizumab 2.25 MG/0.09ML Route: Intravitreal, Site: Right Eye [facility]: [id number], Lot: [id number], Expiration date: 01/04/2025, Waste: 0.04 mL Notes Bevacizumab (Avastin) Intraocular Injection Right Eye - OPHTHALMOLOGY PROCEDURE NOTE PROCEDURE PERFORMED BY: Melvin Harding MD SYSTEMS SOFTWARE ENGINEER(S): None ATTENDING: Melvin Harding MD PROCEDURE DATE: 09/30/2024 PROCEDURE START TIME: 3:38 PM INDICATIONS: Treatment of ICD-10-CM 1. 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 Intermediate stage 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 H35.3122 FUNDUS PHOTOGRAPHY-OU EYE: Right (OD) PROCEDURE GOALS: To preserve or improve vision, reduce retinal swelling, and cause regression of abnormal blood vessels. EBL: None Specimen: None Complications: None CONSENT: Informed consent was obtained prior to the procedure after discussion of the risks, benefits, alternatives, and expected outcomes were discussed with the patient. The consent was placed in the chart. The possibilities of infection, reaction to medication, retinal tear, bleeding, thromboembolic events such as myocardial infarction or cerebral vascular accident, the need for additional procedures, failure to diagnosis a condition, and creating a complication requiring surgery were discussed with the patient. The OFF LABEL use of the drug was discussed with the patient. Additional risks, benefits and alternatives were discussed with the patient. The patient concurred with the proposed plan and signed the consent form, giving informed consent. DOES THIS PROCEDURE REQUIRE A UNIVERSAL PROTOCOL? Yes. [place] Protocol is required. Pre-procedure verification was completed. The patient verified the site and procedure. The consent was confirmed, procedure sites were identified and marked, and a timeout was called before the start of the procedure. ANESTHESIA: Subconjunctival lidocaine 4% PROCEDURE DETAILS: The operative eye was prepped with Betadine. Using a single dose sterile syringe the following medication was injected: Avastin (Bevacizumab 1.25 mg/0.05 ml). The intravitreal pars plana injection was placed 3.5-4.0 mm from the limbus. Following the injection the eye was irrigated with sterile saline and an antibiotic drop was instilled. [facility] 09-30-2024 History of Present illness Narrative REASON FOR VISIT Salome Hsieh presents to clinic today for a Follow-Up Patient visit. Chief Complaint Avastin Injection HISTORY OF PRESENT ILLNESS HPI 88 year old female with Wet AMD OD returns for 12 week OCT, Optos OU, Avastin Right Eye. Patient states her vision is not bad, she went to get new rx glasses and rx sunglasses yesterday. Will pick them up in 2 weeks. She has photophobia ou, worse in sunlight. She denies any eye pain, flashes or floaters. Ocular medications: Latanoprost at bedtime OS Areds 2 Last edited by Ambreen Bowser MA on 09/30/2024 2:14 PM. Allergies, medications & history reviewed & updated by Ambreen Bowser MA REVIEW OF SYSTEMS ROS Positive for: Eyes Last edited by Ambreen Bowser MA on 09/30/2024 2:11 PM. >14 minutes was spent with patient updating allergies, medications, and medical history. Referring Physician: Self, Self Chief Complaint Patient presents with Avastin Injection HPI 88 year old female with Wet AMD OD returns for 12 week OCT, Optos OU, Avastin Right Eye. Patient states her vision is not bad, she went to get new rx glasses and rx sunglasses yesterday. Will pick them up in 2 weeks. She has photophobia ou, worse in sunlight. She denies any eye pain, flashes or floaters. Ocular medications: Latanoprost at bedtime OS Areds 2 Last edited by Ambreen Bowser MA on 09/30/2024 2:14 PM. Referring Doctor: Self Self No address on file Medications: Current Outpatient Medications Medication Sig amLODIPine 5 MG tablet aspirin 81 MG Chew Tab chewable tablet Chew 1 tablet daily. B Complex Vitamins (Vitamin B-Complex) tablet Take 1 tablet by mouth. bevacizumab 1.25 MG/0.[address] 0.05 mL in right eye every 28 days. Bevacizumab 2.75MG/0.11ML Solution Prefilled Syringe 0.05 mL by Intravitreal route once for 1 dose. cholecalciferol 50 MCG (2000 UNIT) tablet Take 1 tablet by mouth daily. Latanoprost 0.005 % Solution ophthalmic solution losartan 100 MG tablet Probiotic Product (Align) Chew Tab Chew 1 tablet daily. Vitamin E (Vitamin E/D-Alpha Natural) 268 MG (400 UNIT) capsule Take 400 Units by mouth daily. PMH: Past Medical History: Diagnosis Date High blood pressure Macular degeneration of both eyes PSH Past Surgical History: Procedure Laterality Date SMALL BOWEL SURGERY UTERINE SURGERY Family History: Family History Problem Relation Age of Onset Heart Failure Mother Social History Social History Socioeconomic History Marital status: Tobacco Use Smoking status: Never Smokeless tobacco: Never Social Drivers of Health Financial Resource Strain: Low Risk (08/17/2024) Received from [facility] Overall Financial Resource Strain (CARDIA) Difficulty of Paying Living Expenses: Not very hard Food Insecurity: No Food Insecurity (08/17/2024) Received from [facility] Hunger Vital Sign Worried About Running Out of Food in the Last Year: Never true Ran Out of Food in the Last Year: Never true Transportation Needs: No Transportation Needs (08/17/2024) Received from [facility] PRAPARE - Transportation Lack of Transportation (Medical): No Lack of Transportation (Non-Medical): No Review of Systems: I reviewed the patient's review of systems, and I have updated the medical record. Base Eye Exam Visual Acuity (Snellen - Linear) Right Left Dist cc CF at 3' 20/25 +1 Dist ph cc NI 20/25 +2 Tonometry (Tonopen, 2:20 PM) Right Left Pressure 11 12 Pupils Pupils Right PERRL Left PERRL Visual Dominguez Left Right Full Restrictions Partial inner superior temporal, inferior temporal, superior nasal, inferior nasal deficiencies Extraocular Movement Right Left Full, Ortho Full, Ortho Neuro/Psych Oriented x3: Yes Dilation Both eyes: 2.5% Phenylephrine, 1.0% Mydriacyl @ 2:20 PM Assessment and Plan: #. 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 Hager - onset 3 wks ago (08/04/23) - recent hospitalization (08/18/23) d/t high BP - macular edema and hemorrhaging noted today - Photos taken to document disease severity and to follow chronicity of disease changes over time. - OCT obtained to evaluate for RPE disturbance, evidence of subclinical subretinal/intraretinal fluid, signs of focal retinal/RPE atrophy. - Treatment alternatives reviewed including anti-VEGF therapy (including Avastin, Eylea and Lucentis) - Evidence for use of anti-VEGF therapy (Avastin vs Lucentis) Discussed as well as off-label use of Avastin and risks associated with both medications including retinal detachment, endophthalmitis, RPE tear, severe vision loss, and theoretical systemic risks such as heart attack and stroke - Amsler grid and instructions reviewed - S/Sx of new CNV, endophthalmitis reviewed. - recommend treating with a series of Anti-VEGF injections. Patient elects to proceed with injections. R/B/I/A discussed with patient at length and informed consent obtained Avastin OD: 08/21/2023 injection tolerated well, pt to return back in 1 mo Avastin OD: 09/30/23 Imaging shows significant improvement in the swelling, will continue with q1mo intervals - discussed gene therapy research with patient Avastin OD: 11/13/2023 Imaging continues to show improvement; return back as scheduled 01/08/24 - continue with q6-7week intervals Avastin OD: 01/08/2024 8w since last injection; stable imaging - continue q8w injections Avastin OD: 03/04/2024- keep at 8 weeks Avastin OD: 04/29/2024 - improved imaging at 8 weeks; recommended spreading intervals to 10 weeks - Plan for Optos and DFE at next visit Avastin OD 07/06/2024 - 10w since last injection; imaging shows improvement OD; stable OS Slit lamp exam and peripheral DFE performed today, both retinas appear stable on today's exam - Recommended extending to 12 weeks for next injection Avastin OD: 09/30/2024 - Imaging stable at 3m; recommended continuing current intervals -Optos/DFE at next visit #. Intermediate stage 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 - Onset unknown - FH ? - Explained the nature of the condition and how it typically progressed overtime - Explained to patient that is a slow progressive disease typically and only 20% of patients have severe vision loss due to either advance geographic dry AMD or wet AMD - Symptoms of the Neovascular AMD discussed - No bleeding or swelling or other signs of exudation found on today's exam - OCT and fundus photo and autofluorescence done to help stage and monitor the disease - AREDS 2 vitamins - Monitor amsler grid - No smoking - Consume green leafy vegetables - Sun glasses #. 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 I have reviewed the dictated documentation as scribed by Gretta Bettencourt and it accurately reflects the work performed and the decisions made. I saw and independently examined this patient today. I discussed my findings and the therapeutic plan with the patient. I agree with the history, physical examination, and medical decisions as outlined. I have reviewed the documentation and it accurately reflects the work performed and the decisions made. Melvin Harding MD documented in this encounter [facility] 08-17-2024 Note Subjective Patient I D: Salome Hsieh is a 88 y.o. female here for Chief Complaint Patient presents with [facility] Care Wants to discuss medication refills, sees eye dr for macular degeneration at [facility] Dr Harding Fall Risk Screening After discussing the use of ambient listening and audio recording in generating medical documentation, the patient verbally consented to use of this technology for today's visit. History of Present Illness The patient presents to [facility]. She is seeking a closer healthcare provider due to her recent relocation to [place] to live with her grandson. She has been managing her blood pressure with losartan 100 mg and amlodipine 2.5 mg, which will run out in approximately a week. She monitors her blood pressure at home, noting that it remains stable in the morning but tends to elevate with physical activity. She has not experienced any cerebrovascular accidents or myocardial infarctions. She was born with a heart murmur and has been on a regimen of baby aspirin as per her previous physician's advice. She reports no history of vascular narrowing. She does not experience any chest pain or dyspnea. She has not had any recent changes in vision, headaches, hematuria, hematochezia, abnormal vaginal bleeding, fevers, chills, or night sweats. She has been diagnosed with macular degeneration and is under the care of an contact representative. She administers eyedrops to her left eye and receives bimonthly injections in her right eye due to partial vision loss. She reports no new changes in her vision. 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 She maintains a careful diet, avoiding excessive green vegetables due to their laxative effect. She consumes decaffeinated coffee and tea and takes a daily probiotic supplement. She has not experienced any unintentional weight loss since her surgery, maintaining a weight of approximately [address] She continues to drive without any incidents and avoids driving in adverse weather conditions. She reports sleep disturbances, often waking up around 11:00 PM or 12:00 AM to urinate and struggling to return to sleep. She does not wish to take any medication for this issue. She has arthritis. SOCIAL HISTORY She drinks wine on the weekends, typically 4 glasses per week. She does not drink beer or hard liquor. She has never smoked and does not use drugs. MEDICATIONS Losartan, amlodipine, baby aspirin, nystatin, Align probiotic. IMMUNIZATIONS She has received her influenza vaccine. Reviewed by Provider: Tobacco Allergies Meds Problems Med Hx Surg Hx Fam Hx Objective BP (!) 150/82 Pulse 71 Temp 98.4 degrees F (36.9 degrees C) Resp 14 Ht 4' 11.5 Wt 43.1 kg (95 lb) SpO2 96% BMI 18.87 kg/m Physical Exam Physical Exam Constitutional: General: She is not in acute distress. Appearance: Normal appearance. She is not ill-appearing, toxic-appearing or diaphoretic. HENT: Head: Normocephalic and atraumatic. Cardiovascular: Rate and Rhythm: Normal rate and regular rhythm. Heart sounds: Normal heart sounds. Pulmonary: Effort: Pulmonary effort is normal. No respiratory distress. Breath sounds: Normal breath sounds. No wheezing or rales. Abdominal: General: There is no distension. Palpations: Abdomen is soft. Tenderness: There is no abdominal tenderness. Musculoskeletal: Cervical back: Neck supple. Right lower leg: No edema. Left lower leg: No edema. Lymphadenopathy: Cervical: No cervical adenopathy. Skin: General: Skin is warm and dry. Neurological: General: No focal deficit present. Mental Status: She is alert and oriented to person, place, and time. Psychiatric: Mood and Affect: Mood normal. Behavior: Behavior normal. Thought Content: Thought content normal. Judgment: Judgment normal. Results Assessment & Plan Assessment & Plan 1. Hypertension. Her blood pressure readings at home have been within normal limits, but today's reading was slightly elevated. She has been advised to discontinue the use of baby aspirin due to the absence of any history of stroke, heart attack, or vessel narrowing, and the potential risk of bleeding associated with aspirin use. She has been instructed to monitor her blood pressure a few times a week and report the readings in a month. She should ensure she is seated for approximately 5 minutes prior to taking the reading, with her legs uncrossed, and ideally when she is most relaxed. A prescription for losartan 100 mg and amlodipine 2.5 mg has been sent to her pharmacy ([facility] in [place]). 2. Macular Degeneration. A prescription for her eyedrops has been sent to her pharmacy ([facility] in [place]). She receives a needle every other month in her right eye due to vision loss. 3 (more content not included)... [facility] 08-17-2024 History of Present illness Narrative Subjective Patient ID: Salome Hsieh is a 88 y.o. female here for Chief Complaint Patient presents with [facility] Care Wants to discuss medication refills, sees eye for macular degeneration at [facility] Dr Harding Fall Risk Screening After discussing the use of ambient listening and audio recording in generating medical documentation, the patient verbally consented to use of this technology for today's visit. History of Present Illness The patient presents to [facility]. She is seeking a closer healthcare provider due to her recent relocation to [place] to live with her grandson. She has been managing her blood pressure with losartan 100 mg and amlodipine 2.5 mg, which will run out in approximately a week. She monitors her blood pressure at home, noting that it remains stable in the morning but tends to elevate with physical activity. She has not experienced any cerebrovascular accidents or myocardial infarctions. She was born with a heart murmur and has been on a regimen of baby aspirin as per her previous physician's advice. She reports no history of vascular narrowing. She does not experience any chest pain or dyspnea. She has not had any recent changes in vision, headaches, hematuria, hematochezia, abnormal vaginal bleeding, fevers, chills, or night sweats. She has been diagnosed with macular degeneration and is under the care of an contact representative. She administers eyedrops to her left eye and receives bimonthly injections in her right eye due to partial vision loss. She reports no new changes in her vision. 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 She maintains a careful diet, avoiding excessive green vegetables due to their laxative effect. She consumes decaffeinated coffee and tea and takes a daily probiotic supplement. She has not experienced any unintentional weight loss since her surgery, maintaining a weight of approximately [address] She continues to drive without any incidents and avoids driving in adverse weather conditions. She reports sleep disturbances, often waking up around 11:00 PM or 12:00 AM to urinate and struggling to return to sleep. She does not wish to take any medication for this issue. She has arthritis. SOCIAL HISTORY She drinks wine on the weekends, typically 4 glasses per week. She does not drink beer or hard liquor. She has never smoked and does not use drugs. MEDICATIONS Losartan, amlodipine, baby aspirin, nystatin, Align probiotic. IMMUNIZATIONS She has received her influenza vaccine. Reviewed by Provider: Tobacco Allergies Meds Problems Med Hx Surg Hx Fam Hx Objective BP (!) 150/82 Pulse 71 Temp 98.4 F (36.9 C) Resp 14 Ht 4' 11.5 Wt 43.1 kg (95 lb) SpO2 96% BMI 18.87 kg/m Physical Exam Physical Exam Constitutional: General: She is not in acute distress. Appearance: Normal appearance. She is not ill-appearing, toxic-appearing or diaphoretic. HENT: Head: Normocephalic and atraumatic. Cardiovascular: Rate and Rhythm: Normal rate and regular rhythm. Heart sounds: Normal heart sounds. Pulmonary: Effort: Pulmonary effort is normal. No respiratory distress. Breath sounds: Normal breath sounds. No wheezing or rales. Abdominal: General: There is no distension. Palpations: Abdomen is soft. Tenderness: There is no abdominal tenderness. Musculoskeletal: Cervical back: Neck supple. Right lower leg: No edema. Left lower leg: No edema. Lymphadenopathy: Cervical: No cervical adenopathy. Skin: General: Skin is warm and dry. Neurological: General: No focal deficit present. Mental Status: She is alert and oriented to person, place, and time. Psychiatric: Mood and Affect: Mood normal. Behavior: Behavior normal. Thought Content: Thought content normal. Judgment: Judgment normal. Results Assessment & Plan Assessment & Plan 1. Hypertension. Her blood pressure readings at home have been within normal limits, but today's reading was slightly elevated. She has been advised to discontinue the use of baby aspirin due to the absence of any history of stroke, heart attack, or vessel narrowing, and the potential risk of bleeding associated with aspirin use. She has been instructed to monitor her blood pressure a few times a week and report the readings in a month. She should ensure she is seated for approximately 5 minutes prior to taking the reading, with her legs uncrossed, and ideally when she is most relaxed. A prescription for losartan 100 mg and amlodipine 2.5 mg has been sent to her pharmacy ([facility] in [facility]). 2. Macular Degeneration. A prescription for her eyedrops has been sent to her pharmacy ([facility] in [facility]). She receives a needle every other month in her right eye due to vision loss. 3. Insomnia. She has been advised to consider taking melatonin, starting with a low dose of 2 mg, to aid in falling asleep throughout the night. 4. Health Maintenance. She has been recommended to receive the shingles and RSV vaccines from the pharmacy. A comprehensive lab workup will be conducted today. Follow-up The patient will follow up in 6 months. PROCEDURE The patient receives bimonthly injections in her right eye due to partial vision loss. She underwent surgical intervention for a twisted intestine and significant blockage, which required resection of a portion of her small intestine. No follow-ups on file. 08/17/2024 2:00 PM PHQ-9 Review Little interest or pleasure in doing things 0 Feeling down, depressed, or hopeless 0 PHQ-2 Total Score 0 Trouble falling or staying asleep, or sleeping too much 0 Feeling tired or having little energy 1 Poor appetite or overeating 0 Feeling bad about yourself - or that you are a failure or have let yourself or your family down 0 Trouble concentrating on things, such as reading the newspaper or watching television 0 Moving or speaking so slowly that other people could have noticed. Or the opposite - being so fidgety or restless that you have been moving around a lot more than usual 0 Thoughts that you would be better off , or of hurting yourself in some way 0 PHQ-9 Total Score 1 documented in this encounter [facility] 08-17-2024 Instructions Ghazala Rodriguez MD - 08/17/2024 2:12 PM EST Get labs today. Would recommend shingles and RSV vaccines from pharmacy. Check blood pressure 2-3 times a week for next month and call in with fausto BUCHANAN Our goal is to provide you with exceptional patient care, and we strive to do this for every patient, every visit. Since we care about you and your experience, you may receive a patient satisfaction survey in the mail, via email or text message from [facility]. We truly welcome your feedback, positive and negative, and ask that you complete the survey to let us know how we are doing. Please skip over any question(s) that may not apply to your visit. Appointment Policy: We care about your health and we want to assist you if there is something preventing you from making it to your appointment. We know unexpected events occur that may prevent you from making your appointment and we understand. If you are not able to make it to your appointment, we would greatly appreciate if you could let us know. Patients arriving more than 15 minutes after their scheduled appointment may be asked to reschedule their appointment, this is at provider discretion. Any patient who fails to arrive for a scheduled appointment without canceling will be marked as a no show. Referrals: If were referred to another physician/specialist, we will send him or her your referral and any necessary clinical information. They will call you to schedule your appointment. If you have not heard, from the specialist that we are referring you to within 7-10 business days please call the specialist office or give our office a call at and we will be happy to assist. Advanced Imaging (MRI, CT, etc.) If your provider ordered advanced imaging during your visit today, you may be contacted by the requested locations you chose. If you have not heard anything about your test schedule or results in 5-7 days please call our office at [phone]. Test & Lab Results: Even though you may receive your test results in your MyChart, please allow up to 5 business days to be contacted by our office regarding your results. Be assured, if any test results are critical, our office will contact you as soon as possible to review the results with you. If your labs are normal and you have not heard from us after 5 business days, please give our office a call at or send the provider a [email or web address] message and we will be happy to look into this. Medication Refills: If you have a refill request outside of a scheduled appointment or after hours, please call your pharmacy to verify if you have any refills remaining. If a new prescription is needed, please give our office a call at during regular business hours or send the provider a [email or web address] message and allow up to 2 business days for us to complete this. If your insurance requires your medication(s) to be prior authorized, we will work with your insurance company to get these medication(s) prior authorized for you. Please allow up to 7-10 business days for this to be completed. [email or web address] Messaging: Controlust is a wonderful way to communicate with your provider and often allows for quicker response times compared to calling our office. Please consider sending your provider a [email or web address] message with your non-urgent questions or medication refill requests. Please do not use [email or web address] to send any messages requiring urgent or emergent attention. By selecting to send a message, you acknowledge you are seeking medical advice for non-urgent issues and that you are aware that you may not get a response for 2 business days. For issues requiring urgent or emergent attention, please call 311. Important Numbers: [facility] Billing Questions or MyChart Support or Medical Financial Assistance Central Scheduling or STEADI Low Risk Patient Instructions: Your Falls Screening today shows that you are at low risk for falls. To further protect yourself from falls and maintain your independence, we recommend: 1. Read through the brochure, What You Can Do to Prevent Falls (from CDC). 2. Go through the brochure, Check for Safety: A Home Fall Prevention Checklist for Older Adults (from [facility]), and make changes as recommended. 3. Join a community falls prevention program: Stepping On, a 7-week evidence based program that teaches balance exercises and fall prevention strategies Misha Chi for older adults, group exercise that teaches Misha Chi forms that reduce fall risk (weight shifting, postural alignment and control, and coordinated movements of the arms, legs, head, and trunk) Matter of Balance, an evidence based program designed to reduce the fear of falling and increase activity levels of older adults OR an exercise class for strength and balance. 4. Take your Vitamin D with or without Calcium, as determined by your healthcare provider. 5. Get your vision and hearing checked annually. Falls At Home Each year, thousands of older Americans fall at home. Many of them are seriously injured, and some are disabled. In 2011, nearly 23,000 people over age 65 and 2.4 million were treated in emergency departments because of falls. Falls are often due to hazards that are easy to overlook but easy to fix. This checklist will help you find and fix those hazards in your home. The checklist asks about hazards found in each room of your home. For each hazard, the checklist tells you how to fix the problem. At the end of the checklist, you ll find other tips for preventing falls. FLOORS: Look at the floor in each room. Q: When you walk through a room, do you have to walk around furniture? A. Ask someone to move the furniture so your path is clear Q: Do you have throw rugs on the floor? A. Remove the rugs or use double-sided tape or a non-slip backing so the rugs won t slip. Q: Are there papers, books, towels, shoes, magazines, boxes, blankets, or other objects on the floor? A.paper supervisor things that are on the floor. Always keep objects off the floor. Q: Do you have to walk over or around wires or cords (like lamp, telephone, or extension cords)? A. Coil or tape cords and wires next to the wall so you can t trip over them. If needed, have an electrician powerhouse put in another outlet. STAIRS AND STEPS: Look at the stairs you use both inside and outside your home. Q: Are there papers, shoes, books, or other objects on the stairs? A. paper supervisor things on the stairs. Always keep objects off stairs. Q: Are some steps broken or uneven? A. Fix loose or uneven steps. Q: Are you missing a light over the stairway? A. Have an electrician powerhouse put in an overhead light at the top and bottom of the stairs. Q: Do you have only one light switch for your stairs (only at the top or at the bottom of the stairs)? A. Have an electrician powerhouse put in a light switch at the top and bottom of the stairs. You can get light switches that glow. Q: Has the stairway light bulb burned out? A. Have a friend or family member change the light bulb. Q: Is the carpet on the steps loose or torn? A. Make sure the carpet is firmly attached to every step, or remove the carpet and attach non-slip rubber treads to the stairs. Q: Are the handrails loose or broken? Is there a handrail on only one side of the stairs? A. Fix loose handrails or put in new ones. Make sure handrails are on both sides of the stairs and are as long as the stairs. KITCHEN: Look at your kitchen and eating area. Q: Are the things you use often on high shelves? A. Move items in your cabinets. Keep things you use often on the lower shelves (about waist level). Q: Is your step stool unsteady? A. If you must use a step stool, get one with a bar to hold on to. Never use a chair as a step stool. BATHROOMS: Look at all your bathrooms. Q: Is the tub or shower floor slippery? A. Put a non-slip rubber mat or self-stick strips on the floor of the tub or shower. Q: Do you need some support when you get in and out of the tub or up from the toilet? A. Have grab bars put in next to and inside the tub and next to the toilet. BEDROOMS: Look at all your bedrooms. Q: Is the light near the bed hard to reach? A. Place a lamp close to the bed where it s easy to reach. Q: Is the path from your bed to the bathroom dark? A. Put in a night-light so you can see where you re walking. Some night-lights go on by themselves after dark. Other Things You Can Do to Prevent Falls Do exercises that improve your balance and make your legs stronger. Exercise also helps you feel better and more confident. Have your doctor or pharmacist look at all the medicines you take, even ylfc-jla-[id number] medicines. Some medicines can make you sleepy or dizzy. Have your eyes checked by an eye doctor at least once a year and update your glasses. Get up slowly after you sit or lie down. Wear shoes both inside and outside the house. Avoid going barefoot or wearing slippers. Improve the lighting in your home. Put in brighter light bulbs. Florescent bulbs are bright and cost less to use. It s safest to have uniform lighting in a room. Add lighting to dark areas. Hang lightweight curtains or shades to reduce glare. [place] a contrasting color on the top edge of all steps so you can see the stairs better. For example, use a light color paint on dark wood. To access this brochure online, please visit the CDC website at http://www.cdc.gov/steadi/pdf/[facility]_for_safety_brochure-a.pdf Chair Rise Exercise What it does: Strengthens the muscles in your thighs & buttocks. Goal: To do this exercise without using your hands as you become stronger. How to do it: 1. Sit toward the front of a sturdy chair with your knees bent & feet flat on the floor shoulder-width apart 2. Rest your hands lightly on the seat on either side of you, keeping your back & neck straight & and chest slightly forward. 3. Breathe in slowly. Lean forward & feel your weight on the front of your feet. 4. Breathe out and slowly stand up, using your hands as little as possible. 5. Pause for a full breath in & out. 6. Breathe in as you slowly sit down. Do not let yourself collapse back down into the chair. Rather, control your lowering as much as possible. 7. Breathe out. Repeat 10-15 times. If this number is too hard for you when you first start practicing this exercise, begin with fewer and work up to this number. Rest for a minute & then do a final set of 10-15. For detailed instructions, please visit the CDC website at http://www.cdc.gov/steadi/pdf/beau ir_rise_exercise-a.pdf Stepping On is an evidence based program proven to reduce falls in older adults. It is a workshop offered once a week for seven weeks. In a small-group setting, you will learn balance exercises and develop specific knowledge and skills to prevent falls. Older adults who should attend are those who: are at risk of falling who have fallen one or more times lives at home are able to walk without the help of another person Local guest experts provide information on exercise, safety, vision, and medications. Classes are offered at [facility]. To find out specifics about a class, please call [phone]. Misha chi: Moving for Better Balance involves low impact exercise. The 12-week class is offered for three hours per week and is led by a trained certified nursing assistant instructor. It is intended for people aged 60 and older. Participants learn and perform a program of eight forms that progress from easy to more difficult. The program can accommodate persons with various physical conditions. Health Benefits of Misha Chi: Moving for Better Balance: Improved social and mental well-being, Improved balance and physical functioning, Improved confidence in conducting daily activities, Reduced risk of falling and sustaining associated injuries, and Maintained independence and improved quality of life. To find a Misha Chi program in your area or additional resources about fall prevention please contact: [facility] Violence and Injury Prevention Program at [phone] or [email or web address] A Matter of Balance: Managing Concerns about Falls is an evidence based program designed to reduce the fear of falling and increase activity levels of older adults. A trained technical planner leads 8 two-hour sessions for small groups of older adults. The class is intended for people 60 and older who are at risk of falling have a fear of falling or restrict activities who have fallen in the past are interested in improving flexibility, balance, and strength. Participants will learn to view falls as controllable, set goals to increase activity levels, and reduce fall risks at home. Classes are offered in all [address] [place] [address] in [place]. For more information about specific classes near you, please visit http://aging.[place].gov/steadyu/res ources/matterofbalance.aspx. documented in this encounter [facility] 07-06-2024 Note Procedure date: 07/06. Right Eye Quality was good. Findings include abnormal foveal contour, drusen, subretinal fluid. Interval change is better. Recommendation for management is to continue treatment. Left Eye Quality was good. Findings include drusen. Interval change is same. Recommendation for management is to observe. [facility] 07-06-2024 Note Procedure date: 07/06. Right Eye Quality was good. Findings include abnormal foveal contour, drusen, subretinal fluid. Interval change is better. Recommendation for management is to continue treatment. Left Eye Quality was good. Findings include drusen. Interval change is same. Recommendation for management is to observe. [facility] 07-06-2024 Note Procedure date: 07/06. Right Eye Clear. Disc findings include normal observations. Vessel findings include normal. Macula findings include CNV, drusen, edema, RPE mottling. Drusen. Interval change is same. Recommendation for management is to continue treatment. Left Eye Clear. Disc findings include normal observations. Vessel findings include normal. Macula findings include RPE mottling, drusen. Drusen. Interval change is same. Recommendation for management is to observe. [facility] 07-06-2024 Note Procedure date: 07/06. Right Eye Clear. Disc findings include normal observations. Vessel findings include normal. Macula findings include CNV, drusen, edema, RPE mottling. Drusen. Interval change is same. Recommendation for management is to continue treatment. Left Eye Clear. Disc findings include normal observations. Vessel findings include normal. Macula findings include RPE mottling, drusen. Drusen. Interval change is same. Recommendation for management is to observe. [facility] 07-06-2024 Note Table formatting fro m the original result was not included. Procedure date: 07/06/2024. Intraocular injection (0.11 mL bevacizumab): 1.25 mg Bevacizumab 2.75MG/0.11ML Route: Intravitreal, Site: Right Eye [facility]: 53939-849-86, Lot: [id number], Expiration date: 10/14/2024, Waste: 0.06 mL Notes Bevacizumab (Avastin) Intraocular Injection Right Eye - OPHTHALMOLOGY PROCEDURE NOTE PROCEDURE PERFORMED BY: Melvin Harding MD ATTENDING: Melvin Harding MD PROCEDURE DATE: 07/06/2024 PROCEDURE START TIME: 1:43 PM INDICATIONS: Treatment of ICD-10-CM 1. 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 Intermediate stage 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 H35.3122 FUNDUS PHOTOGRAPHY-OU OCT/HRT MACULA OU FUNDUS PHOTOGRAPHY-OU [place] BEVACIZUMAB SOLN - OD EYE: Right (OD) PROCEDURE GOALS: To preserve or improve vision, reduce retinal swelling, and cause regression of abnormal blood vessels. EBL: None Specimen: None Complications: None CONSENT: Informed consent was obtained prior to the procedure after discussion of the risks, benefits, alternatives, and expected outcomes were discussed with the patient. The consent was placed in the chart. The possibilities of infection, reaction to medication, retinal tear, bleeding, thromboembolic events such as myocardial infarction or cerebral vascular accident, the need for additional procedures, failure to diagnosis a condition, and creating a complication requiring surgery were discussed with the patient. The OFF LABEL use of the drug was discussed with the patient. Additional risks, benefits and alternatives were discussed with the patient. The patient concurred with the proposed plan and signed the consent form, giving informed consent. DOES THIS PROCEDURE REQUIRE A UNIVERSAL PROTOCOL? Yes. [place] Protocol is required. Pre-procedure verification was completed. The patient verified the site and procedure. The consent was confirmed, procedure sites were identified and marked, and a timeout was called before the start of the procedure. ANESTHESIA:Subconjunctival lidocaine 4% PROCEDURE DETAILS: The operative eye was prepped with Betadine. Using a single dose sterile syringe the following medication was injected: Avastin (Bevacizumab 1.25 mg/0.05 ml). The intravitreal pars plana injection was placed 3.5-4.0 mm from the limbus. Following the injection the eye was irrigated with sterile saline and an antibiotic drop was instilled. [facility] 07-06-2024 Note Table formatting fro m the original result was not included. Procedure date: 07/06/2024. Intraocular injection (0.11 mL bevacizumab): 1.25 mg Bevacizumab 2.75MG/0.11ML Route: Intravitreal, Site: Right Eye [facility]: 60572-514-25, Lot: [id number], Expiration date: 10/14/2024, Waste: 0.06 mL Notes Bevacizumab (Avastin) Intraocular Injection Right Eye - OPHTHALMOLOGY PROCEDURE NOTE PROCEDURE PERFORMED BY: Melvin Harding MD ATTENDING: Melvin Harding MD PROCEDURE DATE: 07/06/2024 PROCEDURE START TIME: 1:43 PM INDICATIONS: Treatment of ICD-10-CM 1. 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 Intermediate stage 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 H35.3122 FUNDUS PHOTOGRAPHY-OU OCT/HRT MACULA OU FUNDUS PHOTOGRAPHY-OU [place] BEVACIZUMAB SOLN - OD EYE: Right (OD) PROCEDURE GOALS: To preserve or improve vision, reduce retinal swelling, and cause regression of abnormal blood vessels. EBL: None Specimen: None Complications: None CONSENT: Informed consent was obtained prior to the procedure after discussion of the risks, benefits, alternatives, and expected outcomes were discussed with the patient. The consent was placed in the chart. The possibilities of infection, reaction to medication, retinal tear, bleeding, thromboembolic events such as myocardial infarction or cerebral vascular accident, the need for additional procedures, failure to diagnosis a condition, and creating a complication requiring surgery were discussed with the patient. The OFF LABEL use of the drug was discussed with the patient. Additional risks, benefits and alternatives were discussed with the patient. The patient concurred with the proposed plan and signed the consent form, giving informed consent. DOES THIS PROCEDURE REQUIRE A UNIVERSAL PROTOCOL? Yes. [place] Protocol is required. Pre-procedure verification was completed. The patient verified the site and procedure. The consent was confirmed, procedure sites were identified and marked, and a timeout was called before the start of the procedure. ANESTHESIA:Subconjunctival lidocaine 4% PROCEDURE DETAILS: The operative eye was prepped with Betadine. Using a single dose sterile syringe the following medication was injected: Avastin (Bevacizumab 1.25 mg/0.05 ml). The intravitreal pars plana injection was placed 3.5-4.0 mm from the limbus. Following the injection the eye was irrigated with sterile saline and an antibiotic drop was instilled. [facility] 07-06-2024 History of Present illness Narrative REASON FOR VISIT Salome Hsieh presents to clinic today for a Established Patient visit. Chief Complaint Avastin Injection HISTORY OF PRESENT ILLNESS HPI 88 y.o. female presents for OCT and Optos OU, Avastin Right Eye for Wet AMD OD. Reports vision is about the same since last visit, does not feel there has been any new changes. Denies new or worsening distortion, no more blurriness than normal. Denies any stinging, burning, irritation, pain after last injection, says time before last she had swelling which was very concerning but has not had any other instances like that since. Patient current eye medication regiment: AT's every day OU (Systane) Latanoprost at bedtime OS 9:00-9:30 yesterday evening. Denies hospital, surgery or change in health since last visit Last edited by Khadijah Rodriges on 07/06/2024 11:24 AM. Allergies, medications & history reviewed & updated by Khadijah Rodriges REVIEW OF SYSTEMS Review of Systems >15 minutes was spent with patient updating allergies, medications, and medical history. Referring Physician: Self Chief Complaint Patient presents with Avastin Injection HPI 88 y.o. female presents for OCT and Optos OU, Avastin Right Eye for Wet AMD OD. Reports vision is about the same since last visit, does not feel there has been any new changes. Denies new or worsening distortion, no more blurriness than normal. Denies any stinging, burning, irritation, pain after last injection, says time before last she had swelling which was very concerning but has not had any other instances like that since. Patient current eye medication regiment: AT's every day OU (Systane) Latanoprost at bedtime OS 9:00-9:30 yesterday evening. Denies hospital, surgery or change in health since last visit Last edited by Khadijah Rodriges on 07/06/2024 11:24 AM. Referring Doctor: Self Self No address on file Medications: Current Outpatient Medications Medication Sig amLODIPine 5 MG tablet aspirin 81 MG Chew Tab chewable tablet Chew 1 tablet daily. B Complex Vitamins (Vitamin B-Complex) tablet Take 1 tablet by mouth. cholecalciferol 50 MCG (2000 UNIT) tablet Take 1 tablet by mouth daily. Latanoprost 0.005 % Solution ophthalmic solution losartan 100 MG tablet Probiotic Product (Align) Chew Tab Chew 1 tablet daily. Vitamin E (Vitamin E/D-Alpha Natural) 268 MG (400 UNIT) capsule Take 400 Units by mouth daily. bevacizumab 1.25 MG/0.[address] 0.05 mL in right eye every 28 days. PMH: Past Medical History: Diagnosis Date High blood pressure Macular degeneration of both eyes PSH Past Surgical History: Procedure Laterality Date SMALL BOWEL SURGERY UTERINE SURGERY Family History: Family History Problem Relation Age of Onset Heart Failure Mother Social History Social History Socioeconomic History Marital status: Tobacco Use Smoking status: Never Smokeless tobacco: Never Social Determinants of Health Financial Resource Strain: Low Risk (09/17/2023) Received from [facility] Overall Financial Resource Strain (CARDIA) Difficulty of Paying Living Expenses: Not very hard Food Insecurity: No Food Insecurity (09/17/2023) Received from [facility] Hunger Vital Sign Worried About Running Out of Food in the Last Year: Never true Ran Out of Food in the Last Year: Never true Transportation Needs: No Transportation Needs (09/17/2023) Received from [facility] PRAPARE - Transportation Lack of Transportation (Medical): No Lack of Transportation (Non-Medical): No Review of Systems: I reviewed the patient's review of systems, and I have updated the medical record. Base Eye Exam Visual Acuity (Snellen - Linear) Right Left Dist sc 20/400 ecce Dist cc 20/30 Dist ph sc NI Dist ph cc 20/20 Tonometry (Tonopen, 11:37 AM) Right Left Pressure 16 18 Latanoprost OS- 9:00-9:30 yesterday evening. Pupils Shape React APD Right Round Brisk None Left Round Brisk None Visual Dominguez (Counting fingers) Left Right Full Full Extraocular Movement Right Left Full, Ortho Full, Ortho Neuro/Psych Oriented x3: Yes Mood/Affect: Normal Dilation Both eyes: 1.0% Mydriacyl, 2.5% Phenylephrine @ 11:40 AM Assessment and Plan: #. 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 Hager - onset 3 wks ago (08/04/23) - recent hospitalization (08/18/23) d/t high BP - macular edema and hemorrhaging noted today - Photos taken to document disease severity and to follow chronicity of disease changes over time. - OCT obtained to evaluate for RPE disturbance, evidence of subclinical subretinal/intraretinal fluid, signs of focal retinal/RPE atrophy. - Treatment alternatives reviewed including anti-VEGF therapy (including Avastin, Eylea and Lucentis) - Evidence for use of anti-VEGF therapy (Avastin vs Lucentis) Discussed as well as off-label use of Avastin and risks associated with both medications including retinal detachment, endophthalmitis, RPE tear, severe vision loss, and theoretical systemic risks such as heart attack and stroke - Amsler grid and instructions reviewed - S/Sx of new CNV, endophthalmitis reviewed. - recommend treating with a series of Anti-VEGF injections. Patient elects to proceed with injections. R/B/I/A discussed with patient at length and informed consent obtained Avastin OD: 08/21/2023 injection tolerated well, pt to return back in 1 mo Avastin OD: 09/30/23 Imaging shows significant improvement in the swelling, will continue with q1mo intervals - discussed gene therapy research with patient Avastin OD: 11/13/2023 Imaging continues to show improvement; return back as scheduled 01/08/24 - continue with q6-7week intervals Avastin OD: 01/08/2024 8w since last injection; stable imaging - continue q8w injections Avastin OD: 03/04/2024- keep at 8 weeks Avastin OD: 04/29/2024 - improved imaging at 8 weeks; recommended spreading intervals to 10 weeks - Plan for Optos and DFE at next visit Avastin OD 07/06/2024 - 10w since last injection; imaging shows improvement OD; stable OS Slit lamp exam and peripheral DFE performed today, both retinas appear stable on today's exam - Recommended extending to 12 weeks for next injection #. Intermediate stage 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 - Onset unknown - FH ? - Explained the nature of the condition and how it typically progressed overtime - Explained to patient that is a slow progressive disease typically and only 20% of patients have severe vision loss due to either advance geographic dry AMD or wet AMD - Symptoms of the Neovascular AMD discussed - No bleeding or swelling or other signs of exudation found on today's exam - OCT and fundus photo and autofluorescence done to help stage and monitor the disease - AREDS 2 vitamins - Monitor amsler grid - No smoking - Consume green leafy vegetables - Sun glasses #. 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 I have reviewed the dictated documentation as scribed by Jean Melchor and it accurately reflects the work performed and the decisions made. I saw and independently examined this patient today. I discussed my findings and the therapeutic plan with the patient. I agree with the history, physical examination, and medical decisions as outlined. I have reviewed the documentation and it accurately reflects the work performed and the decisions made. Melvin Harding MD documented in this encounter [facility] 04-30-2024 Note Table formatting fro m the original result was not included. Procedure date: 04/29/2024. Intraocular injection (0.11 mL bevacizumab): 1.25 mg Bevacizumab 2.75MG/0.11ML Route: Intravitreal, Site: Right Eye [facility]: 48198-228-56, Lot: [id number], Expiration date: 08/24/2024, Waste: 0.06 mL Notes Bevacizumab (Avastin) Intraocular Injection Right Eye - OPHTHALMOLOGY PROCEDURE NOTE PROCEDURE PERFORMED BY: Melvin Harding MD SYSTEMS SOFTWARE ENGINEER(S): None ATTENDING: Melvin Harding MD PROCEDURE DATE: 04/29/2024 PROCEDURE START TIME: 2:01 PM INDICATIONS: Treatment of ICD-10-CM 1. 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 Intermediate stage 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 H35.3122 OCT/HRT [place] [facility] [place] BEVACIZUMAB SOLN - OD EYE: Right (OD) PROCEDURE GOALS: To preserve or improve vision, reduce retinal swelling, and cause regression of abnormal blood vessels. EBL: None Specimen: None Complications: None CONSENT: Informed consent was obtained prior to the procedure after discussion of the risks, benefits, alternatives, and expected outcomes were discussed with the patient. The consent was placed in the chart. The possibilities of infection, reaction to medication, retinal tear, bleeding, thromboembolic events such as myocardial infarction or cerebral vascular accident, the need for additional procedures, failure to diagnosis a condition, and creating a complication requiring surgery were discussed with the patient. The OFF LABEL use of the drug was discussed with the patient. Additional risks, benefits and alternatives were discussed with the patient. The patient concurred with the proposed plan and signed the consent form, giving informed consent. DOES THIS PROCEDURE REQUIRE A UNIVERSAL PROTOCOL? Yes. [place] Protocol is required. Pre-procedure verification was completed. The patient verified the site and procedure. The consent was confirmed, procedure sites were identified and marked, and a timeout was called before the start of the procedure. ANESTHESIA: Subconjunctival lidocaine 4% PROCEDURE DETAILS: The operative eye was prepped with Betadine. Using a single dose sterile syringe the following medication was injected: Avastin (Bevacizumab 1.25 mg/0.05 ml). The intravitreal pars plana injection was placed 3.5-4.0 mm from the limbus. Following the injection the eye was irrigated with sterile saline and an antibiotic drop was instilled. [facility] 04-30-2024 Note Table formatting fro m the original result was not included. Procedure date: 04/29/2024. Intraocular injection (0.11 mL bevacizumab): 1.25 mg Bevacizumab 2.75MG/0.11ML Route: Intravitreal, Site: Right Eye [facility]: 96818-409-83, Lot: [id number], Expiration date: 08/24/2024, Waste: 0.06 mL Notes Bevacizumab (Avastin) Intraocular Injection Right Eye - OPHTHALMOLOGY PROCEDURE NOTE PROCEDURE PERFORMED BY: Melvin Harding MD SYSTEMS SOFTWARE ENGINEER(S): None ATTENDING: Melvin Harding MD PROCEDURE DATE: 04/29/2024 PROCEDURE START TIME: 2:01 PM INDICATIONS: Treatment of ICD-10-CM 1. 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 Intermediate stage 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 H35.3122 OCT/HRT [place] [facility] [place] BEVACIZUMAB SOLN - OD EYE: Right (OD) PROCEDURE GOALS: To preserve or improve vision, reduce retinal swelling, and cause regression of abnormal blood vessels. EBL: None Specimen: None Complications: None CONSENT: Informed consent was obtained prior to the procedure after discussion of the risks, benefits, alternatives, and expected outcomes were discussed with the patient. The consent was placed in the chart. The possibilities of infection, reaction to medication, retinal tear, bleeding, thromboembolic events such as myocardial infarction or cerebral vascular accident, the need for additional procedures, failure to diagnosis a condition, and creating a complication requiring surgery were discussed with the patient. The OFF LABEL use of the drug was discussed with the patient. Additional risks, benefits and alternatives were discussed with the patient. The patient concurred with the proposed plan and signed the consent form, giving informed consent. DOES THIS PROCEDURE REQUIRE A UNIVERSAL PROTOCOL? Yes. [place] Protocol is required. Pre-procedure verification was completed. The patient verified the site and procedure. The consent was confirmed, procedure sites were identified and marked, and a timeout was called before the start of the procedure. ANESTHESIA: Subconjunctival lidocaine 4% PROCEDURE DETAILS: The operative eye was prepped with Betadine. Using a single dose sterile syringe the following medication was injected: Avastin (Bevacizumab 1.25 mg/0.05 ml). The intravitreal pars plana injection was placed 3.5-4.0 mm from the limbus. Following the injection the eye was irrigated with sterile saline and an antibiotic drop was instilled. [facility] 04-29-2024 History of Present illness Narrative REASON FOR VISIT Salome Hsieh presents to clinic today for a Follow-Up Patient visit. Chief Complaint Follow-up HISTORY OF PRESENT ILLNESS HPI Salome Hiseh, a 88 y.o. female is present today for a 8 weeks follow-up. POH of ARMD. Patient asked about problems with loss of vision, eye pain/irritation, redness and discharge. The patient denies all except for the following: next morning after injection woke up with swollen/painful right eye, called here and was told to give cold compress which improved it slowly in 3 days CURRENT OCULAR MEDICATIONS/TREATMENTS: AREDS2 PO Qday Latanoprost at bedtime OS -9:30 pm Systane PF PRN Last edited by Sharyn Hanson on 04/29/2024 1:42 PM. Allergies, medications & history reviewed & updated by Sharyn Hanson REVIEW OF SYSTEMS Review of Systems Constitutional: Negative for fever. HENT: Negative for congestion. Respiratory: Negative for shortness of breath. Neurological: Negative for headaches. >15 minutes was spent with patient updating allergies, medications, and medical history. Chief Complaint Patient presents with Follow-up HPI Salome Hsieh, a 88 y.o. female is present today for a 8 weeks follow-up. POH of ARMD. Patient asked about problems with loss of vision, eye pain/irritation, redness and discharge. The patient denies all except for the following: next morning after injection woke up with swollen/painful right eye, called here and was told to give cold compress which improved it slowly in 3 days CURRENT OCULAR MEDICATIONS/TREATMENTS: AREDS2 PO Qday Latanoprost at bedtime OS -9:30 pm Systane PF PRN Last edited by Sharyn Hanson on 04/29/2024 1:42 PM. Referring Doctor: Self Self No address on file Medications: Current Outpatient Medications Medication Sig amLODIPine 5 MG tablet aspirin 81 MG Chew Tab chewable tablet Chew 1 tablet daily. B Complex Vitamins (Vitamin B-Complex) tablet Take 1 tablet by mouth. bevacizumab 1.25 MG/0.[address] 0.05 mL in right eye every 28 days. cholecalciferol 50 MCG (2000 UNIT) tablet Take 1 tablet by mouth daily. Latanoprost 0.005 % Solution ophthalmic solution losartan 100 MG tablet PMH: Past Medical History: Diagnosis Date High blood pressure Macular degeneration of both eyes PSH Past Surgical History: Procedure Laterality Date SMALL BOWEL SURGERY UTERINE SURGERY Family History: Family History Problem Relation Age of Onset Heart Failure Mother Social History Social History Socioeconomic History Marital status: Tobacco Use Smoking status: Never Smokeless tobacco: Never Social Determinants of Health Financial Resource Strain: Low Risk (09/17/2023) Received from [facility] Overall Financial Resource Strain (CARDIA) Difficulty of Paying Living Expenses: Not very hard Food Insecurity: No Food Insecurity (09/17/2023) Received from [facility] Hunger Vital Sign Worried About Running Out of Food in the Last Year: Never true Ran Out of Food in the Last Year: Never true Transportation Needs: No Transportation Needs (09/17/2023) [facility] - Transportation Lack of Transportation (Medical): No Lack of Transportation (Non-Medical): No Review of Systems: I reviewed the patient's review of systems, and I have updated the medical record. Base Eye Exam Visual Acuity (Snellen - Linear) Right Left Dist cc 20/400 20/20 -2 Dist ph cc NI Correction: Glasses Pt was able to read 20/400 only when looking at fingers to count Tonometry (Tonopen, 1:36 PM) Right Left Pressure 17 18 Pupils Pupils Right PERRL Left PERRL Neuro/Psych Oriented x3: Yes Mood/Affect: Normal Dilation Both eyes: 1.0% Mydriacyl, 2.5% Phenylephrine @ 1:36 PM Assessment and Plan: #. 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 Hager - onset 3 wks ago (08/04/23) - recent hospitalization (08/18/23) d/t high BP - macular edema and hemorrhaging noted today - Photos taken to document disease severity and to follow chronicity of disease changes over time. - OCT obtained to evaluate for RPE disturbance, evidence of subclinical subretinal/intraretinal fluid, signs of focal retinal/RPE atrophy. - Treatment alternatives reviewed including anti-VEGF therapy (including Avastin, Eylea and Lucentis) - Evidence for use of anti-VEGF therapy (Avastin vs Lucentis) Discussed as well as off-label use of Avastin and risks associated with both medications including retinal detachment, endophthalmitis, RPE tear, severe vision loss, and theoretical systemic risks such as heart attack and stroke - Amsler grid and instructions reviewed - S/Sx of new CNV, endophthalmitis reviewed. - recommend treating with a series of Anti-VEGF injections. Patient elects to proceed with injections. R/B/I/A discussed with patient at length and informed consent obtained Avastin OD: 08/21/2023 injection tolerated well, pt to return back in 1 mo Avastin OD: 09/30/23 Imaging shows significant improvement in the swelling, will continue with q1mo intervals - discussed gene therapy research with patient Avastin OD: 11/13/2023 Imaging continues to show improvement; return back as scheduled 01/08/24 - continue with q6-7week intervals Avastin OD: 01/08/2024 8w since last injection; stable imaging - continue q8w injections Avastin OD: 03/04/2024- keep at 8 weeks Avastin OD: 04/29/2024 - improved imaging at 8 weeks; recommended spreading intervals to 10 weeks - Plan for Optos and DFE at next visit #. Intermediate stage 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 - Onset unknown - FH ? - Explained the nature of the condition and how it typically progressed overtime - Explained to patient that is a slow progressive disease typically and only 20% of patients have severe vision loss due to either advance geographic dry AMD or wet AMD - Symptoms of the Neovascular AMD discussed - No bleeding or swelling or other signs of exudation found on today's exam - OCT and fundus photo and autofluorescence done to help stage and monitor the disease - AREDS 2 vitamins - Monitor amsler grid - No smoking - Consume green leafy vegetables - Sun glasses #. StableTributary branch retinal vein occlusion (BRVO) of left eye - BRVO OS inf/rebecca OS - scattered mid-peripheral and macular drusen present - continue to monitor - unknown when onset Referring Doctor: Nikki Hager, OD [address] [place] [address] NEXT VISIT Tropicamide 1% 1 drop Both eyes x 1 Phenylephrine 2.5% 1 drop to Both eyes x 1 Evert applanation: Both Eyes OCT Macula: OU Optos: OU Injection follow up in 10 weeks Avastin OD + DFE Gretta Elizabeth acted as a scribe for Melvin Harding MD for this note of 04/29/2024 2:32 PM. I have reviewed the dictated documentation as scribed by Jean Melchor and it accurately reflects the work performed and the decisions made. I saw and independently examined this patient today. I discussed my findings and the therapeutic plan with the patient. I agree with the history, physical examination, and medical decisions as outlined. I have reviewed the documentation and it accurately reflects the work performed and the decisions made. Melvin Harding MD documented in this encounter [facility] 03-17-2024 Note Please call the manny ent for lab results Patient's metabolic panel came back within acceptable range. Will continue to monitor every 6-month Thank you AUTHENTICATED BY TAI DOZIER, ON 03/17/2024 15:13:16 [facility] 03-04-2024 History of Present illness Narrative REASON FOR VISIT Salome Hsieh presents to clinic today for a Follow-Up Patient visit. Chief Complaint Blurred Vision HISTORY OF PRESENT ILLNESS HPI 88 year old male is here for 8 week follow up wet AMD, Avastin OD, Pt states Last edited by Julia Galindo on 03/04/2024 1:44 PM. Allergies, medications & history reviewed & updated by Julia Galindo REVIEW OF SYSTEMS Review of Systems >10 minutes spent providing patient care Chief Complaint Patient presents with Blurred Vision HPI 88 year old female is here for 8 week follow up wet AMD, Avastin OD, Pt states she can read for 30-45 minutes then her eyes get tired. Pt states her vision is stable. No new problems or changes. Ocular Meds AREDS2 PO Qday Latanoprost at bedtime OS -9:30 pm Systane PF PRN Last edited by Julia Galindo on 03/04/2024 1:52 PM. Referring Doctor: Self Self No address on file Medications: Current Outpatient Medications Medication Sig amLODIPine 5 MG tablet aspirin 81 MG Chew Tab chewable tablet Chew 1 tablet daily. B Complex Vitamins (Vitamin B-Complex) tablet Take 1 tablet by mouth. bevacizumab 1.25 MG/0.[address] 0.05 mL in right eye every 28 days. cholecalciferol 50 MCG (2000 UNIT) tablet Take 1 tablet by mouth daily. Latanoprost 0.005 % Solution ophthalmic solution losartan 100 MG tablet PMH: Past Medical History: Diagnosis Date High blood pressure Macular degeneration of both eyes PSH Past Surgical History: Procedure Laterality Date SMALL BOWEL SURGERY UTERINE SURGERY Family History: Family History Problem Relation Age of Onset Heart Failure Mother Social History Social History Socioeconomic History Marital status: Tobacco Use Smoking status: Never Smokeless tobacco: Never Social Determinants of Health Financial Resource Strain: Low Risk (09/17/2023) Received from [facility] Overall Financial Resource Strain (CARDIA) Difficulty of Paying Living Expenses: Not very hard Food Insecurity: No Food Insecurity (09/17/2023) Received from [facility] Hunger Vital Sign Worried About Running Out of Food in the Last Year: Never true Ran Out of Food in the Last Year: Never true Transportation Needs: No Transportation Needs (09/17/2023) Received from [facility] - Transportation Lack of Transportation (Medical): No Lack of Transportation (Non-Medical): No Review of Systems: I reviewed the patient's review of systems, and I have updated the medical record. Base Eye Exam Visual Acuity (Snellen - Linear) Right Left Dist cc CF at 3' 20/20 Dist ph cc NI Correction: Glasses Tonometry (Tonopen, 2:00 PM) Right Left Pressure 15 17 Pupils Pupils Right PERRL Left PERRL Extraocular Movement Right Left Full, Ortho Full, Ortho Neuro/Psych Oriented x3: Yes Mood/Affect: Normal Dilation Both eyes: 1.0% Mydriacyl, 2.5% Phenylephrine @ 2:00 PM Assessment and Plan: #. 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 Hager - onset 3 wks ago (08/04/23) - recent hospitalization (08/18/23) d/t high BP - macular edema and hemorrhaging noted today - Photos taken to document disease severity and to follow chronicity of disease changes over time. - OCT obtained to evaluate for RPE disturbance, evidence of subclinical subretinal/intraretinal fluid, signs of focal retinal/RPE atrophy. - Treatment alternatives reviewed including anti-VEGF therapy (including Avastin, Eylea and Lucentis) - Evidence for use of anti-VEGF therapy (Avastin vs Lucentis) Discussed as well as off-label use of Avastin and risks associated with both medications including retinal detachment, endophthalmitis, RPE tear, severe vision loss, and theoretical systemic risks such as heart attack and stroke - Amsler grid and instructions reviewed - S/Sx of new CNV, endophthalmitis reviewed. - recommend treating with a series of Anti-VEGF injections. Patient elects to proceed with injections. R/B/I/A discussed with patient at length and informed consent obtained Avastin OD: 08/21/2023 injection tolerated well, pt to return back in 1 mo Avastin OD: 09/30/23 Imaging shows significant improvement in the swelling, will continue with q1mo intervals - discussed gene therapy research with patient Avastin OD: 11/13/2023 Imaging continues to show improvement; return back as scheduled 01/08/24 - continue with q6-7week intervals Avastin OD: 01/08/2024 8w since last injection; stable imaging - continue q8w injections Avastin OD: 03/04/2024- keep at 8 weeks #. Intermediate stage 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 - Onset unknown - FH ? - Explained the nature of the condition and how it typically progressed overtime - Explained to patient that is a slow progressive disease typically and only 20% of patients have severe vision loss due to either advance geographic dry AMD or wet AMD - Symptoms of the Neovascular AMD discussed - No bleeding or swelling or other signs of exudation found on today's exam - OCT and fundus photo and autofluorescence done to help stage and monitor the disease - AREDS 2 vitamins - Monitor amsler grid - No smoking - Consume green leafy vegetables - Sun glasses #. StableTributary branch retinal vein occlusion (BRVO) of left eye - BRVO OS inf/rebecca OS - scattered mid-peripheral and macular drusen present - continue to monitor - unknown when onset Referring Doctor: Nikki Hager, OD [address] [place] [address] NEXT VISIT Tropicamide 1% 1 drop Both eyes x 1 Phenylephrine 2.5% 1 drop to Both eyes x 1 Evert applanation: Both Eyes OCT Macula: OU Injection follow up 8 weeks Avastin OD I, Jean Melchor acted as a scribe for Melvin Harding MD for this note of 03/04/2024 2:30 PM. I have reviewed the dictated documentation as scribed by Jean Melchor and it accurately reflects the work performed and the decisions made. I saw and independently examined this patient today. I discussed my findings and the therapeutic plan with the patient. I agree with the history, physical examination, and medical decisions as outlined. I have reviewed the documentation and it accurately reflects the work performed and the decisions made. Melvin Harding MD documented in this encounter [facility] 11-19-2023 Note Table formatting fro m the original result was not included. Procedure date: 11/13/2023. Intraocular injection (0.11 mL bevacizumab): 1.25 mg Bevacizumab 2.5MG/0.1ML Route: Intravitreal, Site: Right Eye [facility]: [id number], Lot: [id number], Expiration date: 02/20/2024, Waste: 0.06 mL Notes Bevacizumab (Avastin) Intraocular Injection Right Eye - OPHTHALMOLOGY PROCEDURE NOTE PROCEDURE PERFORMED BY: Melvin Harding MD SYSTEMS SOFTWARE ENGINEER(S): None ATTENDING: Melvin Harding MD PROCEDURE DATE: 11/13/2023 PROCEDURE START TIME: 10:50 AM INDICATIONS: Treatment of ICD-10-CM 1. 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 Intermediate stage 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 H35.3122 OCT/HRT [place] [facility] [place] BEVACIZUMAB SOLN - OD EYE: Right (OD) PROCEDURE GOALS: To preserve or improve vision, reduce retinal swelling, and cause regression of abnormal blood vessels. EBL: None Specimen: None Complications: None CONSENT: Informed consent was obtained prior to the procedure after discussion of the risks, benefits, alternatives, and expected outcomes were discussed with the patient. The consent was placed in the chart. The possibilities of infection, reaction to medication, retinal tear, bleeding, thromboembolic events such as myocardial infarction or cerebral vascular accident, the need for additional procedures, failure to diagnosis a condition, and creating a complication requiring surgery were discussed with the patient. The OFF LABEL use of the drug was discussed with the patient. Additional risks, benefits and alternatives were discussed with the patient. The patient concurred with the proposed plan and signed the consent form, giving informed consent. DOES THIS PROCEDURE REQUIRE A UNIVERSAL PROTOCOL? Yes. [place] Protocol is required. Pre-procedure verification was completed. The patient verified the site and procedure. The consent was confirmed, procedure sites were identified and marked, and a timeout was called before the start of the procedure. ANESTHESIA: Subconjunctival lidocaine 4% PROCEDURE DETAILS: The operative eye was prepped with Betadine. Using a single dose sterile syringe the following medication was injected: Avastin (Bevacizumab 1.25 mg/0.05 ml). The intravitreal pars plana injection was placed 3.5-4.0 mm from the limbus. Following the injection the eye was irrigated with sterile saline and an antibiotic drop was instilled. [facility] 11-19-2023 Note Procedure date: 11/12. Right Eye Quality was good. Findings include abnormal foveal contour, drusen, subretinal fluid. Interval change is better. Recommendation for management is to continue treatment. Left Eye Quality was good. Findings include drusen. Interval change is same. Recommendation for management is to observe. ORDEROUT 11-13-2023 History of Present illness Narrative REASON FOR VISIT Salome Hsieh presents to clinic today for a Follow-Up Patient visit. Chief Complaint Avastin Injection HISTORY OF PRESENT ILLNESS HPI Salome Hsieh, miguelina 87 y.o. female is present today for a 1 month follow-up for DFE/OCT + Avastin OD. POH of 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. Patient asked about problems with loss of vision, eye pain/irritation, redness and discharge. The patient denies all and reports vision is stable CURRENT OCULAR MEDICATIONS/TREATMENTS: AREDS2 PO every day Latanoprost at bedtime OS Systane PF BID OU Last edited by Sharyn Hanson on 11/13/2023 10:38 AM. Allergies, medications & history reviewed & updated by Sharyn Hanson REVIEW OF SYSTEMS Review of Systems Constitutional: Negative for fever. HENT: Negative for congestion. Respiratory: Negative for apnea. Cardiovascular: Negative for chest pain. Neurological: Negative for headaches. >15 minutes was spent with patient updating allergies, medications, and medical history. Chief Complaint Patient presents with Avastin Injection HPI Salome Hsieh, a 87 y.o. female is present today for a 1 month follow-up for DFE/OCT + Avastin OD. POH of 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. Patient asked about problems with loss of vision, eye pain/irritation, redness and discharge. The patient denies all and reports vision is stable CURRENT OCULAR MEDICATIONS/TREATMENTS: AREDS2 PO every day Latanoprost at bedtime OS Systane PF BID OU Last edited by Sharyn Hanson on 11/13/2023 10:38 AM. Referring Doctor: Self Self No address on file Medications: Current Outpatient Medications Medication Sig amLODIPine 5 MG tablet (Patient not taking: Reported on 08/21/2023) aspirin 81 MG Chew Tab chewable tablet Chew 1 tablet daily. B Complex Vitamins (Vitamin B-Complex) tablet Take 1 tablet by mouth. bevacizumab 1.25 MG/0.[address] 0.05 mL in right eye every 28 days. cholecalciferol 50 MCG (2000 UNIT) tablet Take 1 tablet by mouth daily. Latanoprost 0.005 % Solution ophthalmic solution (Patient not taking: Reported on 09/30/2023) losartan 100 MG tablet PMH: Past Medical History: Diagnosis Date High blood pressure PSH Past Surgical History: Procedure Laterality Date SMALL BOWEL SURGERY UTERINE SURGERY Family History: Family History Problem Relation Age of Onset Heart Failure Mother Social History Social History Socioeconomic History Marital status: Tobacco Use Smoking status: Never Smokeless tobacco: Never Social Determinants of Health Financial Resource Strain: Low Risk (09/17/2023) Received from [facility] Overall Financial Resource Strain (CARDIA) Difficulty of Paying Living Expenses: Not very hard Food Insecurity: No Food Insecurity (09/17/2023) Received from [facility] Hunger Vital Sign Worried About Running Out of Food in the Last Year: Never true Ran Out of Food in the Last Year: Never true Transportation Needs: No Transportation Needs (09/17/2023) Received from [facility] PRAPARE - Transportation Lack of Transportation (Medical): No Lack of Transportation (Non-Medical): No Review of Systems: I reviewed the patient's review of systems, and I have updated the medical record. Base Eye Exam Visual Acuity (Snellen - Linear) Right Left Dist cc 20/100 -2 20/25 -3 Correction: Glasses Tonometry (Tonopen, 10:46 AM) Right Left Pressure 16 16 Pupils Pupils Right PERRL Left PERRL Neuro/Psych Oriented x3: Yes Mood/Affect: Normal Dilation Both eyes: 1.0% Mydriacyl, 2.5% Phenylephrine @ 10:47 AM Assessment and Plan: #. 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 Hager - onset 3 wks ago (08/04/23) - recent hospitalization (08/18/23) d/t high BP - macular edema and hemorrhaging noted today - Photos taken to document disease severity and to follow chronicity of disease changes over time. - OCT obtained to evaluate for RPE disturbance, evidence of subclinical subretinal/intraretinal fluid, signs of focal retinal/RPE atrophy. - Treatment alternatives reviewed including anti-VEGF therapy (including Avastin, Eylea and Lucentis) - Evidence for use of anti-VEGF therapy (Avastin vs Lucentis) Discussed as well as off-label use of Avastin and risks associated with both medications including retinal detachment, endophthalmitis, RPE tear, severe vision loss, and theoretical systemic risks such as heart attack and stroke - Amsler grid and instructions reviewed - S/Sx of new CNV, endophthalmitis reviewed. - recommend treating with a series of Anti-VEGF injections. Patient elects to proceed with injections. R/B/I/A discussed with patient at length and informed consent obtained Avastin OD: 08/21/2023 injection tolerated well, pt to return back in 1 mo Avastin OD: 09/30/23 Imaging shows significant improvement in the swelling, will continue with q1mo intervals - discussed gene therapy research with patient Avastin OD: 11/13/2023 Imaging continues to show improvement; return back as scheduled 01/08/24 - continue with q6-7week intervals #. Intermediate stage 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 - Onset unknown - FH ? - Explained the nature of the condition and how it typically progressed overtime - Explained to patient that is a slow progressive disease typically and only 20% of patients have severe vision loss due to either advance geographic dry AMD or wet AMD - Symptoms of the Neovascular AMD discussed - No bleeding or swelling or other signs of exudation found on today's exam - OCT and fundus photo and autofluorescence done to help stage and monitor the disease - AREDS 2 vitamins - Monitor amsler grid - No smoking - Consume green leafy vegetables - Sun glasses #. StableTributary branch retinal vein occlusion (BRVO) of left eye - BRVO OS inf/rebecca OS - scattered mid-peripheral and macular drusen present - continue to monitor - unknown when onset Referring Doctor: Nikki Hager, OD [address] [place] [address] NEXT VISIT Tropicamide 1% 1 drop Both eyes x 1 Phenylephrine 2.5% 1 drop to Both eyes x 1 Evert applanation: Both Eyes OCT Macula: OU Follow up in as scheduled 01/08/24 Avastin OD I, EDDIE Lazo acted as a scribe for Melvin Harding MD for this note of 11/13/2023 11:19 AM. I have reviewed the dictated documentation as scribed by Parul Dee and it accurately reflects the work performed and the decisions made. I saw and independently examined this patient today. I discussed my findings and the therapeutic plan with the patient. I agree with the history, physical examination, and medical decisions as outlined. I have reviewed the documentation and it accurately reflects the work performed and the decisions made. Melvin Harding MD documented in this encounter [facility] 10-04-2023 Note Table formatting fro m the original result was not included. Procedure date: 09/30/2023. Intraocular injection (0.11 mL bevacizumab): 1.25 mg Bevacizumab 2.5MG/0.1ML Route: Intravitreal, Site: Right Eye [facility]: 16765-837-13, Lot: [id number], Expiration date: 01/13/2024, Waste: 0.06 mL Notes Bevacizumab (Avastin) Intraocular Injection Right Eye - OPHTHALMOLOGY PROCEDURE NOTE PROCEDURE PERFORMED BY: Melvin Harding MD SYSTEMS SOFTWARE ENGINEER(S): None ATTENDING: Melvin Harding MD PROCEDURE DATE: 09/30/2023 PROCEDURE START TIME: 2:46 PM INDICATIONS: Treatment of ICD-10-CM 1. 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 H35.3211 OCT/HRT MACULA OU bevacizumab 1.25 MG/0.05 ML Solution OK BEVACIZUMAB SOLN - OD OK BEVACIZUMAB SOLN - OD OCT/HRT MACULA OU 2. Intermediate stage 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 H35.3122 OCT/HRT MACULA OU bevacizumab 1.25 MG/0.05 ML Solution OK BEVACIZUMAB SOLN - OD OK BEVACIZUMAB SOLN - OD OCT/HRT MACULA OU 3. Branch retinal vein occlusion of left eye, unspecified complication status H34.8322 EYE: Right (OD) PROCEDURE GOALS: To preserve or improve vision, reduce retinal swelling, and cause regression of abnormal blood vessels. EBL: None Specimen: None Complications: None CONSENT: Informed consent was obtained prior to the procedure after discussion of the risks, benefits, alternatives, and expected outcomes were discussed with the patient. The consent was placed in the chart. The possibilities of infection, reaction to medication, retinal tear, bleeding, thromboembolic events such as myocardial infarction or cerebral vascular accident, the need for additional procedures, failure to diagnosis a condition, and creating a complication requiring surgery were discussed with the patient. The OFF LABEL use of the drug was discussed with the patient. Additional risks, benefits and alternatives were discussed with the patient. The patient concurred with the proposed plan and signed the consent form, giving informed consent. DOES THIS PROCEDURE REQUIRE A UNIVERSAL PROTOCOL? Yes. [place] Protocol is required. Pre-procedure verification was completed. The patient verified the site and procedure. The consent was confirmed, procedure sites were identified and marked, and a timeout was called before the start of the procedure. ANESTHESIA: Subconjunctival lidocaine 4% PROCEDURE DETAILS: The operative eye was prepped with Betadine. Using a single dose sterile syringe the following medication was injected: Avastin (Bevacizumab 1.25 mg/0.05 ml). The intravitreal pars plana injection was placed 3.5-4.0 mm from the limbus. Following the injection the eye was irrigated with sterile saline and an antibiotic drop was instilled. [facility] 10-04-2023 Note Procedure date: 2023. Right Eye Quality was good. Findings include abnormal foveal contour, drusen, subretinal fluid. Interval change is better. Recommendation for management is to continue treatment. Left Eye Quality was good. Findings include drusen. Interval change is same. Recommendation for management is to observe. ORDEROUT 09-30-2023 History of Present illness Narrative REASON FOR VISIT Salome Hsieh presents to clinic today for a Established Patient visit. Chief Complaint Blurred Vision; Distortion Of Vision HISTORY OF PRESENT ILLNESS HPI 87 y/o female presents for 5 week Avastin OD to manage exudative AMD OD. Patient denies using Amsler grid due to not understanding how to use it. Patient feels vision has remained stable since her last visit. Denies floaters, flashes, shadow, curtain & veil OU. Patient states that eyes fatigue pretty easily after reading for short periods of time. Current ocular medications: AREDS2 PO Qday Latanoprost at bedtime OS Systane PF BID OU Last edited by Khadijah Yadav on 09/30/2023 2:12 PM. Allergies, medications & history reviewed & updated by Khadijah Yadav REVIEW OF SYSTEMS Review of Systems Constitutional: Negative. HENT: Positive for hearing loss. Eyes: Positive for pain (irritation a/w dry eye), itching (a/w dry eye) and visual disturbance (blurry VA OD>OS). Respiratory: Negative. Cardiovascular: Negative. Gastrointestinal: Negative. Endocrine: Negative. Genitourinary: Negative. Musculoskeletal: Negative. Skin: Negative. Allergic/Immunologic: Negative. Neurological: Negative. Hematological: Negative. Psychiatric/Behavioral: Negative. 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 Referring Physician: Chief Complaint Patient presents with Blurred Vision Distortion Of Vision HPI 87 y/o female presents for 5 week Avastin OD to manage exudative AMD OD. Patient denies using Amsler grid due to not understanding how to use it. Patient feels vision has remained stable since her last visit. Denies floaters, flashes, shadow, curtain & veil OU. Patient states that eyes fatigue pretty easily after reading for short periods of time. Current ocular medications: AREDS2 PO Qday Latanoprost at bedtime OS Systane PF BID OU Last edited by Khadijah Yadav on 09/30/2023 2:12 PM. Referring Doctor: Self Self No address on file Medications: Current Outpatient Medications Medication Sig amLODIPine 5 MG tablet (Patient not taking: Reported on 08/21/2023) aspirin 81 MG Chew Tab chewable tablet Chew 1 tablet daily. B Complex Vitamins (Vitamin B-Complex) tablet Take 1 tablet by mouth. bevacizumab 1.25 MG/0.[address] 0.05 mL in right eye every 28 days. cholecalciferol 50 MCG (2000 UNIT) tablet Take 1 tablet by mouth daily. Latanoprost 0.005 % Solution ophthalmic solution (Patient not taking: Reported on 09/30/2023) losartan 100 MG tablet PMH: Past Medical History: Diagnosis Date High blood pressure PSH Past Surgical History: Procedure Laterality Date SMALL BOWEL SURGERY UTERINE SURGERY Family History: Family History Problem Relation Age of Onset Heart Failure Mother Social History Social History Socioeconomic History Marital status: Tobacco Use Smoking status: Never Smokeless tobacco: Never Social Determinants of Health Financial Resource Strain: Low Risk (09/17/2023) Received from [facility] Overall Financial Resource Strain (CARDIA) Difficulty of Paying Living Expenses: Not very hard Food Insecurity: No Food Insecurity (09/17/2023) Received from [facility] Hunger Vital Sign Worried About Running Out of Food in the Last Year: Never true Ran Out of Food in the Last Year: Never true Transportation Needs: No Transportation Needs (09/17/2023) Received from [facility] PRAPARE - Transportation Lack of Transportation (Medical): No Lack of Transportation (Non-Medical): No Review of Systems: I reviewed the patient's review of systems, and I have updated the medical record. Base Eye Exam Visual Acuity (Snellen - Linear) Right Left Dist cc 20/200 -1 20/20 Dist ph cc NI Correction: Glasses Tonometry (Tonopen, 2:20 PM) Right Left Pressure 14 16 AREDS2 PO Qday Latanoprost at bedtime OS Systane PF BID OU Pupils Dark Light Shape React Right 4.5 4.0 Round Minimal Left 4.5 4.0 Round Minimal Visual Dominguez (Counting fingers) Left Right Full Full Extraocular Movement Right Left Full, Ortho Full, Ortho Neuro/Psych Oriented x3: Yes Mood/Affect: Normal Dilation Both eyes: 1.0% Mydriacyl, 2.5% Phenylephrine @ 2:20 PM Assessment and Plan: #. 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 Hager - onset 3 wks ago (08/04/23) - recent hospitalization (08/18/23) d/t high BP - macular edema and hemorrhaging noted today - Photos taken to document disease severity and to follow chronicity of disease changes over time. - OCT obtained to evaluate for RPE disturbance, evidence of subclinical subretinal/intraretinal fluid, signs of focal retinal/RPE atrophy. - Treatment alternatives reviewed including anti-VEGF therapy (including Avastin, Eylea and Lucentis) - Evidence for use of anti-VEGF therapy (Avastin vs Lucentis) Discussed as well as off-label use of Avastin and risks associated with both medications including retinal detachment, endophthalmitis, RPE tear, severe vision loss, and theoretical systemic risks such as heart attack and stroke - Amsler grid and instructions reviewed - S/Sx of new CNV, endophthalmitis reviewed. - recommend treating with a series of Anti-VEGF injections. Patient elects to proceed with injections. R/B/I/A discussed with patient at length and informed consent obtained Avastin OD: 08/21/2023 injection tolerated well, pt to return back in 1 mo Avastin OD: 09/30/2023 Imaging shows significant improvement in the swelling, will continue with q1mo intervals - discussed gene therapy research with patient #. Intermediate stage 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 - Onset unknown - FH ? - Explained the nature of the condition and how it typically progressed overtime - Explained to patient that is a slow progressive disease typically and only 20% of patients have severe vision loss due to either advance geographic dry AMD or wet AMD - Symptoms of the Neovascular AMD discussed - No bleeding or swelling or other signs of exudation found on today's exam - OCT and fundus photo and autofluorescence done to help stage and monitor the disease - AREDS 2 vitamins - Monitor amsler grid - No smoking - Consume green leafy vegetables - Sun glasses #. 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 I have reviewed the dictated documentation as scribed by Parul Dee and it accurately reflects the work performed and the decisions made. I saw and independently examined this patient today. I discussed my findings and the therapeutic plan with the patient. I agree with the history, physical examination, and medical decisions as outlined. I have reviewed the documentation and it accurately reflects the work performed and the decisions made. Melvin Harding MD documented in this encounter [facility] 09-17-2023 Instructions Tai Dozier MD - 09/17/2023 1:33 PM EDT Central Scheduling [phone] documented in this encounter [facility] 09-17-2023 History of Present illness Narrative Assessment/Plan: Diagnoses and all orders for this visit: Hypertension, unspecified type - amLODIPine (NORVASC) 2.5 MG tablet; Take 1 (one) tablet (2.5 mg total) by mouth daily . Encounter for osteoporosis screening in asymptomatic postmenopausal patient - XR Bone Density DEXA Axial; Future Hypertension Blood pressure well-controlled, has been noting some improvement blood pressure results recently blood pressure has been coming down [id number] and consistent basis. Will continue to monitor patient's hypertension, but at this time we will be refill patient's amlodipine at 2.5 mg Osteoporosis screening DEXA scan ordered I am managing Salome Hsieh for complex chronic condition(s) serving as the focal point for the patient's care for consistency and continuity over time. Goals None Health Maintenance Due Topic Date Due Dexa Scan Never done Zoster Vaccines (1 of 2) Never done COVID-19 Vaccine ( season) 2023 Subjective: Chief Complaint Patient presents with Gap Closure (Health Maintenance) Follow-up HPI Salome Hsieh is a 87 y.o. female with past medical history of hypertension comes to the office today after starting on amlodipine. At this time patient has been doing well without any side effects. Past Medical History: Diagnosis Date Diverticulosis Hypertension SBO (small bowel obstruction) (HCC) Past Surgical History: Procedure Laterality Date BACK SURGERY HYSTERECTOMY ILEOCECECTOMY The following portions of the patient's history were reviewed and updated as appropriate: allergies, current medications, past family history, past medical history, past social history, past surgical history and problem list. Review of Systems Constitutional: Negative for chills and fever. HENT: Negative for congestion. Respiratory: Negative for cough. Cardiovascular: Negative for chest pain. Gastrointestinal: Negative for abdominal pain, constipation, diarrhea, nausea and vomiting. Genitourinary: Negative for dysuria. Skin: Negative for color change. Objective: PACU Vitals 09/17/23 1313 BP: 138/75 Pulse: 85 SpO2: 97% Physical Exam Vitals reviewed. Constitutional: Appearance: She is well-developed. HENT: Head: Normocephalic and atraumatic. Eyes: Pupils: Pupils are equal, round, and reactive to light. Cardiovascular: Rate and Rhythm: Normal rate and regular rhythm. Heart sounds: Normal heart sounds. No murmur heard. No friction rub. No gallop. Pulmonary: Effort: Pulmonary effort is normal. No respiratory distress. Breath sounds: Normal breath sounds. No wheezing or rales. Abdominal: General: There is no distension. Palpations: Abdomen is soft. There is no mass. Tenderness: There is no abdominal tenderness. There is no guarding. Skin: General: Skin is warm and dry. Neurological: Mental Status: She is alert and oriented to person, place, and time. Psychiatric: Thought Content: Thought content normal. Hearing and vision grossly normal. For any new medications prescribed today, patient was educated about indications for the medication, how to take the medication and potential side effects of the medications. 09/13/2022 1:16 PM 09/17/2023 1:16 PM Depression Screening Little interest or pleasure in doing things 1 0 Feeling down, depressed, or hopeless 1 0 PHQ-2 Total Score 2 0 Trouble falling or staying asleep, or sleeping too much 1 Feeling tired or having little energy 1 Poor appetite or overeating 1 Feeling bad about yourself - or that you are a failure or have let yourself or your family down 0 Trouble concentrating on things, such as reading the newspaper or watching television 0 Moving or speaking so slowly that other people could have noticed. Or the opposite - being so fidgety or restless that you have been moving around a lot more than usual 0 Thoughts that you would be better off , or of hurting yourself in some way 0 PHQ-9 Total Score 5 If you checked off any problems, how difficult have these problems made it for you to do your work, take care of things at home, or get along with other people? Somewhat difficult documented in this encounter [facility] 09-03-2023 History of Present illness Narrative Assessment/Plan: Diagnoses and all orders for this visit: Hypertension, unspecified type - losartan (COZAAR) 100 MG tablet; Take 1 (one) tablet (100 mg total) by mouth daily . 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 Hypertension At this time patient's blood pressure at home has been between 120-140/70-95 on average. Patient's blood pressure is relatively well-controlled. In the past patient was on amlodipine 5 mg as well, but it was causing significant amount of blood pressure drop patient. At this time will continue to monitor patient's blood pressure. But also have recommended the patient to discuss regarding her blood pressure also with her contact representative due to her macular degeneration. If needed we will do a tighter blood pressure control possibly adding in amlodipine 2.5 mg or sliding a low dosage of hydrochlorothiazide Macular degeneration Currently being treated and monitored No Diagnostic tests are needed at this time. Continue care with the specialist. Possibly needing further/tighter blood pressure control for patient's macular degeneration History of small bowel obstruction Status post ileocolotomy since then patient has been using probiotics on regular basis. At this time we will be refilling patient's Align probiotic to be used on daily basis. I am managing Salome Hsieh for complex chronic condition(s) serving as the focal point for the patient's care for consistency and continuity over time. Goals None Health Maintenance Due Topic Date Due Dexa Scan Never done Zoster Vaccines (1 of 2) Never done COVID-19 Vaccine ( season) 2023 Subjective: Chief Complaint Patient presents with Gap Closure (Health Maintenance) Transition Of Care HPI Salome Hsieh is a 87 y.o. female with pmhx of htn coming to the office after a recent ER follow-up. Overall at this time patient has been doing well, patient noted that she has been reducing her caffeine intake to help with her blood pressure. Past Medical History: Diagnosis Date Diverticulosis Hypertension SBO (small bowel obstruction) (HCC) Past Surgical History: Procedure Laterality Date BACK SURGERY HYSTERECTOMY ILEOCECECTOMY The following portions of the patient's history were reviewed and updated as appropriate: allergies, current medications, past family history, past medical history, past social history, past surgical history and problem list. Review of Systems Constitutional: Negative for chills and fever. HENT: Negative for congestion. Respiratory: Negative for cough. Cardiovascular: Negative for chest pain. Gastrointestinal: Negative for abdominal pain, constipation, diarrhea, nausea and vomiting. Genitourinary: Negative for dysuria. Skin: Negative for color change. Objective: PACU Vitals 09/03/23 0959 BP: (!) 165/84 Pulse: 86 SpO2: 95% Physical Exam Vitals reviewed. Constitutional: Appearance: She is well-developed. HENT: Head: Normocephalic and atraumatic. Eyes: Pupils: Pupils are equal, round, and reactive to light. Cardiovascular: Rate and Rhythm: Normal rate and regular rhythm. Heart sounds: Normal heart sounds. No murmur heard. No friction rub. No gallop. Pulmonary: Effort: Pulmonary effort is normal. No respiratory distress. Breath sounds: Normal breath sounds. No wheezing or rales. Abdominal: General: There is no distension. Palpations: Abdomen is soft. There is no mass. Tenderness: There is no abdominal tenderness. There is no guarding. Skin: General: Skin is warm and dry. Neurological: Mental Status: She is alert and oriented to person, place, and time. Psychiatric: Thought Content: Thought content normal. Hearing and vision grossly normal. For any new medications prescribed today, patient was educated about indications for the medication, how to take the medication and potential side effects of the medications. documented in this encounter [facility] 08-28-2023 Note Procedure date: . Right Eye Clear. Disc findings include normal observations. Vessel findings include normal. Macula findings include CNV, drusen, edema, RPE mottling. Drusen. Interval change is baseline. Recommendation for management is to start treatment. Left Eye Clear. Disc findings include normal observations. Vessel findings include normal. Macula findings include RPE mottling, drusen. Drusen. Interval change is baseline. Recommendation for management is to observe. RADIOLOGY 08-28-2023 Note Procedure date: . Right Eye Quality was good. Findings include abnormal foveal contour, drusen, subretinal fluid. Interval change is baseline. Recommendation for management is to start treatment. Left Eye Quality was good. Findings include drusen. Interval change is baseline. Recommendation for management is to observe. ORDEROUT 08-28-2023 Note Table formatting fro m the original result was not included. Procedure date: 08/21/2023. Intraocular injection: 2.5 mg Bevacizumab 2.5 MG/0.1ML Route: Intravitreal, Site: Right Eye [facility]: 52927-720-58, Lot: [id number], Expiration date: 09/03/2023, Waste: 0 mL Notes Bevacizumab (Avastin) Intraocular Injection Right Eye - OPHTHALMOLOGY PROCEDURE NOTE PROCEDURE PERFORMED BY: Melvin Harding MD SYSTEMS SOFTWARE ENGINEER(S): None ATTENDING: Melvin Harding MD PROCEDURE DATE: 08/21/2023 PROCEDURE START TIME: 11:39 AM INDICATIONS: Treatment of ICD-10-CM 1. 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 Intermediate stage 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 H35.3122 3. 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 Pseudophakia of both eyes Z96.1 EYE: Right (OD) PROCEDURE GOALS: To preserve or improve vision, reduce retinal swelling, and cause regression of abnormal blood vessels. EBL: None Specimen: None Complications: None CONSENT: Informed consent was obtained prior to the procedure after discussion of the risks, benefits, alternatives, and expected outcomes were discussed with the patient. The consent was placed in the chart. The possibilities of infection, reaction to medication, retinal tear, bleeding, thromboembolic events such as myocardial infarction or cerebral vascular accident, the need for additional procedures, failure to diagnosis a condition, and creating a complication requiring surgery were discussed with the patient. The OFF LABEL use of the drug was discussed with the patient. Additional risks, benefits and alternatives were discussed with the patient. The patient concurred with the proposed plan and signed the consent form, giving informed consent. DOES THIS PROCEDURE REQUIRE A UNIVERSAL PROTOCOL? Yes. [place] Protocol is required. Pre-procedure verification was completed. The patient verified the site and procedure. The consent was confirmed, procedure sites were identified and marked, and a timeout was called before the start of the procedure. ANESTHESIA: Subconjunctival lidocaine 4% PROCEDURE DETAILS: The operative eye was prepped with Betadine. Using a single dose sterile syringe the following medication was injected: Avastin (Bevacizumab 1.25 mg/0.05 ml). The intravitreal pars plana injection was placed 3.5-4.0 mm from the limbus. Following the injection the eye was irrigated with sterile saline and an antibiotic drop was instilled. [facility] 08-21-2023 History of Present illness Narrative REASON FOR VISIT Salome Hsieh presents to clinic today for a New Patient visit. HISTORY OF PRESENT ILLNESS HPI 87 YO F here for add on retinal eval per Nikki Hager for a new BRVO OS. Pt has had some blurred vision in the right eye for a few weeks. When closes the left eye, things are very blurry. Can only see outlines of thing. No pain or discomfort. No flashes of floaters. Pt thought her glasses were dirty. Pt says that she has been having issues with her blood pressure. Pt was seen in [facility] on Friday for possible heart related illness but after it ended up being skeletal/muscular issues. Blood pressure then was 200/something Pt on latanoprost at bedtime os for at least 5 years for glaucoma Last edited by Karen Spring on 08/21/2023 3:27 PM. Allergies, medications & history reviewed & updated by Karen Spring REVIEW OF SYSTEMS Review of Systems Constitutional: Negative for fever. Eyes: Negative for pain. Poor vision od Respiratory: Negative for cough. Musculoskeletal: Positive for arthralgias. Neurological: Positive for numbness. 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 Referring Physician:Nikki Hager OD Chief Complaint Patient presents with New Patient HPI 87 YO F here for add on retinal eval per Nikki Hager for a new BRVO OS. Pt has had some blurred vision in the right eye for a few weeks. When closes the left eye, things are very blurry. Can only see outlines of thing. No pain or discomfort. No flashes of floaters. Pt thought her glasses were dirty. Pt says that she has been having issues with her blood pressure. Pt was seen in [facility] on Friday for possible heart related illness but after it ended up being skeletal/muscular issues. Blood pressure then was 200/something Pt on latanoprost at bedtime os for at least 5 years for glaucoma Last edited by Karen Spring on 08/21/2023 3:27 PM. Referring Doctor: Nikki Hager, OD [address] [place] [address] Medications: Current Outpatient Medications Medication Sig aspirin 81 MG Chew Tab chewable tablet Chew 1 tablet daily. B Complex Vitamins (Vitamin B-Complex) tablet Take 1 tablet by mouth. cholecalciferol 50 MCG (2000 UNIT) tablet Take 1 tablet by mouth daily. losartan 100 MG tablet amLODIPine 5 MG tablet (Patient not taking: Reported on 08/21/2023) Latanoprost 0.005 % Solution ophthalmic solution PMH: Past Medical History: Diagnosis Date High blood pressure PSH Past Surgical History: Procedure Laterality Date SMALL BOWEL SURGERY UTERINE SURGERY Family History: Family History Problem Relation Age of Onset Heart Failure Mother Social History Social History Socioeconomic History Marital status: Tobacco Use Smoking status: Never Smokeless tobacco: Never Social Determinants of Health Financial Resource Strain: Low Risk (09/13/2022) Received from [facility] Overall Financial Resource Strain (CARDIA) Difficulty of Paying Living Expenses: Not very hard Food Insecurity: Patient Declined (09/13/2022) Received from [facility] Hunger Vital Sign Worried About Running Out of Food in the Last Year: Patient declined Ran Out of Food in the Last Year: Patient declined Transportation Needs: No Transportation Needs (09/13/2022) Received from [facility] PRAPARE - Transportation Lack of Transportation (Medical): No Lack of Transportation (Non-Medical): No Review of Systems: I reviewed the patient's review of systems, and I have updated the medical record. Base Eye Exam Visual Acuity (Snellen - Linear) Right Left Dist cc HM 20/40 Dist ph cc 20/400 20/20 Pt already dilated from OD visit. Tonometry (Tonopen, 3:34 PM) Right Left Pressure 19 20 Latanoprost at bedtime os- did not use last night. Pupils Shape React Right Round dil Left Round dil Visual Dominguez Left Right Full Full Extraocular Movement Right Left Full Full Neuro/Psych Oriented x3: Yes Mood/Affect: Normal Dilation Both eyes: 1.0% Mydriacyl, 2.5% Phenylephrine @ 3:34 PM Assessment and Plan: #. 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 Hager - onset 3 wks ago (08/04/23) - recent hospitalization (08/18/23) d/t high BP - macular edema and hemorrhaging noted today - Photos taken to document disease severity and to follow chronicity of disease changes over time. - OCT obtained to evaluate for RPE disturbance, evidence of subclinical subretinal/intraretinal fluid, signs of focal retinal/RPE atrophy. - Treatment alternatives reviewed including anti-VEGF therapy (including Avastin, Eylea and Lucentis) - Evidence for use of anti-VEGF therapy (Avastin vs Lucentis) Discussed as well as off-label use of Avastin and risks associated with both medications including retinal detachment, endophthalmitis, RPE tear, severe vision loss, and theoretical systemic risks such as heart attack and stroke - Amsler grid and instructions reviewed - S/Sx of new CNV, endophthalmitis reviewed. - recommend treating with a series of Anti-VEGF injections. Patient elects to proceed with injections. R/B/I/A discussed with patient at length and informed consent obtained Avastin OD: 08/21/2023 injection tolerated well, pt to return back in 1 mo #. Intermediate stage 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 - Onset unknown - FH ? - Explained the nature of the condition and how it typically progressed overtime - Explained to patient that is a slow progressive disease typically and only 20% of patients have severe vision loss due to either advance geographic dry AMD or wet AMD - Symptoms of the Neovascular AMD discussed - No bleeding or swelling or other signs of exudation found on today's exam - OCT and fundus photo and autofluorescence done to help stage and monitor the disease - AREDS 2 vitamins - Monitor amsler grid - No smoking - Consume green leafy vegetables - Sun glasses #. 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 I have reviewed the dictated documentation as scribed by Parul Dee and it accurately reflects the work performed and the decisions made. I saw and independently examined this patient today. I discussed my findings and the therapeutic plan with the patient. I agree with the history, physical examination, and medical decisions as outlined. I have reviewed the documentation and it accurately reflects the work performed and the decisions made. Melvin Harding MD documented in this encounter [facility] 08-18-2023 History and physical note Images from the original note were not included. Brayan Dee, DO [facility] Hospitalists History and Physical Patient Name: Salome Degroot : 1935 Admit Date: [id number] Physicians: Tai Dozier MD (PCP) Perpetual Assessment: Salome Degroot is a 87 y.o. female PMHx HTN who presented from home on 08/18 with left-sided chest discomfort. Assessment and Plan Chest pain Etiology not entirely clear. Chest pain is atypical (left-sided, but worse with exertion and improved with nitro), so unstable angina is on DDx. Seems less likely PE, PERC score 1. MSK on DDx, but not reproducible. EKG (08/18): NSR, no ischemic changes Lab work: Troponin normal x 1, BNP negative CXR (08/18): Nonacute HEART Score: 4 pts Risk Factors: HTN, Family Hx (Mother at 35 yo from [place]) - Trend troponin, and if negative plan for stress test on 08/18. N.p.o. at midnight - Since PE is less likely, check dimer to rule out. - As needed nitro for pain. Hypertension BP elevated on admission, likely due to discomfort. Home medications: Losartan - Hold home losartan for procedure tomorrow. Avoid as needed IV meds if possible, treat discomfort. Chest pain pathway Coronary Angiography or CT Scan within the last 2 years? No High quality stress test within the last 1 year? No HEART Score: Age: >65 (2) History: Moderately Suspicious (+1) EKG: Normal (0) Risk Factors: 1-2 risk factors (+1) Troponin: Normal (0) Total Score: 4-6, CP duration >6 hours and (-) troponin: Consider DC and f/u with cardiology I have reached out to cardiology to help arrange follow up as needed: No Plan: Stress test for 08/19 Medication Reconciliation: Reviewed DVT Prophylaxis: Lovenox Code Status: DNR CCA DNI Expected Date of Discharge: 08/18, tentatively Discharge Planning: Requires hospitalization for management of chest pain, with a moderate heart score. Stress test ordered for 08/19, and if negative can likely discharge. I did discuss potentially discharging from the ED and scheduling an outpatient stress test, but the patient strongly in favor of hospitalization. History Chief Complaint: Chest pain HPI and ROS: Salome Degroot is a 87 y.o. female PMHx HTN who presented from home on 08/18 with left-sided chest discomfort. The patient states that she woke up this morning, and was going about her daily routine, which included drinking coffee, taking her dogs out and reading a book, and developed a pain on the lower left side of her chest. She proceeded to do more chores around the house, but the pain worsened, and she developed associated left arm heaviness, and lightheadedness, for which she needed to sit down. She denies any associated nausea, diaphoresis, palpitations, shortness of breath, leg swelling/redness, recent immobility/surgery. She waited for the symptoms to resolve on their own, but they did not, and she therefore decided to be taken to the ED. She did receive nitro and aspirin, and says that it did improve her pain significantly, although it did not go away completely. The patient denies any similar pain in the past. She denies any cardiac history, although she said she did have a heart murmur when she was younger. She did say that her mom of a heart attack when she was 35 years old. She denies any tobacco use history. Leading up to today, the patient was in her normal state of health, with no recent illnesses, sick contacts or medication changes. PMH/PSH/SH/FH: Past Medical History: Diagnosis Date Hypertension Past Surgical History: Procedure Laterality Date BACK SURGERY 6 screws and 2 rods BILATERAL OOPHORECTOMY HYSTERECTOMY No family history on file. Social History Socioeconomic History Marital status: Spouse name: Not on file Number of children: Not on file Years of education: Not on file Highest education level: Not on file Occupational History Not on file Tobacco Use Smoking status: Never Smokeless tobacco: Never Substance and Sexual Activity Alcohol use: Never Drug use: Never Sexual activity: Not on file Other Topics Concern Not on file Social History Narrative Not on file Allergy Information: I have reviewed the patient's allergies. Patient has no known allergies. Home Medications: Prior to Admission medications Medication Sig Start Date End Date Taking? Authorizing Provider aspirin 81 mg chewable tablet Chew 1 tablet (81 mg total) 1 (one) time each day. Historical ProviderMD B complex tablet Take 1 tablet by mouth 3 (three) times a week. Friday, Friday & Historical Provider, Bifidobacterium infantis (Align) 4 mg capsule Take 1 capsule by mouth 1 (one) time each day. Historical ProviderMD cholecalciferol (VITAMIN D-3) 50 mcg (2,000 unit) tablet Take 1 tablet (2,000 Units total) by mouth 1 (one) time each day. Historical Provider, fluticasone propionate (FLONASE) 50 mcg/actuation nasal spray Administer 2 sprays into each nostril 1 (one) time each day if needed for rhinitis. Shake gently. Before first use, prime pump. After use, clean tip and replace cap. Historical Provider, latanoprost (XALATAN) 0.005 % ophthalmic solution Administer 1 drop into the left eye at bedtime. Historical Provider, losartan (COZAAR) 100 mg tablet Take 1 tablet (100 mg total) by mouth 1 (one) time each day. Historical Provider, vitamin E, dl,tocopheryl acet, (vitamin E, dl, acetate,) 180 mg (400 unit) capsule Take 1 capsule (400 Units total) by mouth 1 (one) time per week. Friday Historical Provider, losartan (COZAAR) 25 mg tablet Take 1 tablet (25 mg total) by mouth 1 (one) time each day. 08/18/23 Historical Provider, Physical Examination Vital Signs: Enc Vitals BP: (!) 160/78 Heart Rate: 69 Resp: 10 Temp: 36.2 C (97.2 F) Temp Source: Oral SpO2: 99 % Weight: (!) 45.2 kg (99 lb 9.6 oz) Height: 152.4 cm (60) GENERAL: Elderly female, alert, NAD. Thin. CV: Regular rate and rhythm, no murmurs. CHEST: Chest pain not reproducible RESP: Clear to auscultation bilaterally. Normal respiratory effort GI: Soft, non-tender. Normal bowel sounds. NEURO: Alert, Ox3. No gross neurologic deficits. EXT: No LE edema Laboratory and Additional Data Reviewed: [x] Laboratory [x] Radiology [x] Cardiology [x] Medications [x] Transcriptions [] Microbiology [x] Outside Records [x] Family [facility] 08-18-2023 History and physical note Images from the original note were not included. Brayan Dee DO [facility] Hospitalists History and Physical Patient Name: Salome Degroot : 1935 Admit Date: [id number] Physicians: Tai Dozier MD (PCP) Perpetual Assessment: Salome Degroot is a 87 y.o. female PMHx HTN who presented from home on 08/18 with left-sided chest discomfort. Assessment and Plan Chest pain Etiology not entirely clear. Chest pain is atypical (left-sided, but worse with exertion and improved with nitro), so unstable angina is on DDx. Seems less likely PE, PERC score 1. MSK on DDx, but not reproducible. EKG (08/18): NSR, no ischemic changes Lab work: Troponin normal x 1, BNP negative CXR (08/18): Nonacute HEART Score: 4 pts Risk Factors: HTN, Family Hx (Mother at 35 yo from [place]) - Trend troponin, and if negative plan for stress test on 08/18. N.p.o. at midnight - Since PE is less likely, check dimer to rule out. - As needed nitro for pain. Hypertension BP elevated on admission, likely due to discomfort. Home medications: Losartan - Hold home losartan for procedure tomorrow. Avoid as needed IV meds if possible, treat discomfort. Chest pain pathway Coronary Angiography or CT Scan within the last 2 years? No High quality stress test within the last 1 year? No HEART Score: Age: >65 (2) History: Moderately Suspicious (+1) EKG: Normal (0) Risk Factors: 1-2 risk factors (+1) Troponin: Normal (0) Total Score: 4-6, CP duration >6 hours and (-) troponin: Consider DC and f/u with cardiology I have reached out to cardiology to help arrange follow up as needed: No Plan: Stress test for 08/19 Medication Reconciliation: Reviewed DVT Prophylaxis: Lovenox Code Status: DNR CCA DNI Expected Date of Discharge: 08/18, tentatively Discharge Planning: Requires hospitalization for management of chest pain, with a moderate heart score. Stress test ordered for 08/19, and if negative can likely discharge. I did discuss potentially discharging from the ED and scheduling an outpatient stress test, but the patient strongly in favor of hospitalization. History Chief Complaint: Chest pain HPI and ROS: Salome Degroot is a 87 y.o. female PMHx HTN who presented from home on 08/18 with left-sided chest discomfort. The patient states that she woke up this morning, and was going about her daily routine, which included drinking coffee, taking her dogs out and reading a book, and developed a pain on the lower left side of her chest. She proceeded to do more chores around the house, but the pain worsened, and she developed associated left arm heaviness, and lightheadedness, for which she needed to sit down. She denies any associated nausea, diaphoresis, palpitations, shortness of breath, leg swelling/redness, recent immobility/surgery. She waited for the symptoms to resolve on their own, but they did not, and she therefore decided to be taken to the ED. She did receive nitro and aspirin, and says that it did improve her pain significantly, although it did not go away completely. The patient denies any similar pain in the past. She denies any cardiac history, although she said she did have a heart murmur when she was younger. She did say that her mom of a heart attack when she was 35 years old. She denies any tobacco use history. Leading up to today, the patient was in her normal state of health, with no recent illnesses, sick contacts or medication changes. PMH/PSH/SH/FH: Past Medical History: Diagnosis Date Hypertension Past Surgical History: Procedure Laterality Date BACK SURGERY 6 screws and 2 rods BILATERAL OOPHORECTOMY HYSTERECTOMY No family history on file. Social History Socioeconomic History Marital status: Spouse name: Not on file Number of children: Not on file Years of education: Not on file Highest education level: Not on file Occupational History Not on file Tobacco Use Smoking status: Never Smokeless tobacco: Never Substance and Sexual Activity Alcohol use: Never Drug use: Never Sexual activity: Not on file Other Topics Concern Not on file Social History Narrative Not on file Allergy Information: I have reviewed the patient's allergies. Patient has no known allergies. Home Medications: Prior to Admission medications Medication Sig Start Date End Date Taking? Authorizing Provider aspirin 81 mg chewable tablet Chew 1 tablet (81 mg total) 1 (one) time each day. Historical Provider, B complex tablet Take 1 tablet by mouth 3 (three) times a week. Friday, Friday & Historical Provider, Bifidobacterium infantis (Align) 4 mg capsule Take 1 capsule by mouth 1 (one) time each day. Historical Provider, cholecalciferol (VITAMIN D-3) 50 mcg (2,000 unit) tablet Take 1 tablet (2,000 Units total) by mouth 1 (one) time each day. Historical ProviderMD fluticasone propionate (FLONASE) 50 mcg/actuation nasal spray Administer 2 sprays into each nostril 1 (one) time each day if needed for rhinitis. Shake gently. Before first use, prime pump. After use, clean tip and replace cap. Historical Provider, latanoprost (XALATAN) 0.005 % ophthalmic solution Administer 1 drop into the left eye at bedtime. Historical Provider, losartan (COZAAR) 100 mg tablet Take 1 tablet (100 mg total) by mouth 1 (one) time each day. Historical Provider, vitamin E, dl,tocopheryl acet, (vitamin E, dl, acetate,) 180 mg (400 unit) capsule Take 1 capsule (400 Units total) by mouth 1 (one) time per week. Friday Historical Provider, losartan (COZAAR) 25 mg tablet Take 1 tablet (25 mg total) by mouth 1 (one) time each day. 08/18/23 Historical Provider, Physical Examination Vital Signs: Enc Vitals BP: (!) 160/78 Heart Rate: 69 Resp: 10 Temp: 36.2 C (97.2 F) Temp Source: Oral SpO2: 99 % Weight: (!) 45.2 kg (99 lb 9.6 oz) Height: 152.4 cm (60) GENERAL: Elderly female, alert, NAD. Thin. CV: Regular rate and rhythm, no murmurs. CHEST: Chest pain not reproducible RESP: Clear to auscultation bilaterally. Normal respiratory effort GI: Soft, non-tender. Normal bowel sounds. NEURO: Alert, Ox3. No gross neurologic deficits. EXT: No LE edema Laboratory and Additional Data Reviewed: [x] Laboratory [x] Radiology [x] Cardiology [x] Medications [x] Transcriptions [] Microbiology [x] Outside Records [x] Family documented in this encounter [facility] 08-18-2023 Emergency department Note Bed: [facility] Expected date: Expected time: Means of arrival: Comments: 8a - del 2 [facility] 08-18-2023 History of Present illness Narrative Patient arrived with c.o left sided chest pain and dizziness that started around 9:30/10am. Patient with chest pain on left side, under breast, radiated down her arm. Patient went to urgent care, they gave 324mg asa, patient then transferred to ER. Patient was given 1 nitro in route, pain went from a 9/10 to a 2/10 on arrival. No cardiac history. Patient alert on arrival, on room air. documented in this encounter [facility] 08-18-2023 Miscellaneous Notes Bed: Z2-12 Expected date: Expected time: Means of arrival: Comments: 8a - del 2 Bed: Z1-H8A Expected date: Expected time: Means of arrival: Comments: Del medic 2 - 87 yof with cp from EKG unremarkable 176/90 92, 99% ra +iv assa and ntg sl x 1 given eta 4-6 min documented in this encounter [facility] 08-18-2023 Emergency department Note Bed: Z1-H8A Expected date: Expected time: Means of arrival: Comments: Del medic 2 - 87 yof with cp from EKG unremarkable 176/90 92, 99% ra +iv assa and ntg sl x 1 given eta 4-6 min [facility] 04-02-2023 History of Present illness Narrative Assessment/Plan: Diagnoses and all orders for this visit: Dizziness - CBC; Future - Comprehensive Metabolic Panel; Future Hypertension, unspecified type - losartan (COZAAR) 100 MG tablet; Take 1 (one) tablet (100 mg total) by mouth daily . Other skin changes - Ambulatory referral to Dermatology; Future Congestion of right ear - fluticasone propionate (FLONASE) 50 mcg/actuation nasal spray; Instill 2 (two) sprays into each nostril daily . Dizziness Tension headache At this time we will be rechecking patient's blood count and metabolic panel, discussed extensively regarding different types of differential diagnoses regarding possible dizziness. At this time patient noted that she has been also been having some headaches as well. Her blood pressure is still within normal range, but at this time we will be stopping patient's amlodipine will continue with losartan going forward. Also discussed about the importance of drinking water on regular basis as patient has been only drinking up to 16 to 32 ounces per day. Patient is currently drinking 2 caffeinated beverage of coffee and tea in the afternoon, I have recommended patient to stop tea in the afternoon and only continue with coffee in the morning. Headache noted that has been happening on and off, at this time also recommended to use ibuprofen or tylenol as needed as patient has not tried them yet. Follow up in 2-4weeks if worsening or not improving Hypertension Blood pressure well controlled, will continue with losartan 100 mg only, and stop amlodipine in the meantime Skin changes Patient has an area on the right side of her moravian that is likely a birthmark, at this time patient noted that she has feeling that it has been getting enlarged but without any discomfort or tenderness in the area. We will be referring patient to dermatology for further evaluation regarding her birthmark Ear effusion Patient noted to have right ear effusion worse than the left, at this time discussed with the patient possibility of sinus drainage causing issues regarding her dizziness and a headache. Recommended OTC nasal steroid spray Goals None Health Maintenance Due Topic Date Due Tetanus: Every 10yrs Never done Dexa Scan Never done COVID-19 Vaccine (1) Never done Zoster Vaccines (1 of 2) Never done Pneumococcal Vaccine: Age 65+ (1 - PCV) Never done Subjective: Chief Complaint Patient presents with Gap Closure (Health Maintenance) Dizziness Pt states she is having increased dizziness with headaches on the top of her head and down to her R side of the head. She states I feel like I'm walking around without a clear head Skin Problem Pt states she has a discolored spot on the R side of the head and it has gotten bigger and she is having some discomfort in that spot HPI Salome Hsieh is a 87 y.o. female with past medical history of hypertension, dizziness coming to the office today for worsening dizziness. Patient has been noticing some headaches as well as dizziness happening together but does not notice with positional changes or for medications. Patient has been monitoring her blood pressure at this time Past Medical History: Diagnosis Date Diverticulosis Hypertension SBO (small bowel obstruction) (HCC) Past Surgical History: Procedure Laterality Date BACK SURGERY HYSTERECTOMY ILEOCECECTOMY The following portions of the patient's history were reviewed and updated as appropriate: allergies, current medications, past family history, past medical history, past social history, past surgical history and problem list. Review of Systems Constitutional: Negative for chills and fever. HENT: Negative for congestion. Respiratory: Negative for cough. Cardiovascular: Negative for chest pain. Gastrointestinal: Negative for abdominal pain, constipation, diarrhea, nausea and vomiting. Genitourinary: Negative for dysuria. Skin: Negative for color change. Neurological: Positive for dizziness and headaches. Objective: PACU Vitals 04/02/23 1320 BP: 137/68 Pulse: 84 SpO2: 97% Physical Exam Vitals reviewed. Constitutional: Appearance: She is well-developed. HENT: Head: Normocephalic and atraumatic. Right Ear: A middle ear effusion is present. Left Ear: A middle ear effusion is present. Eyes: Pupils: Pupils are equal, round, and reactive to light. Cardiovascular: Rate and Rhythm: Normal rate and regular rhythm. Heart sounds: Normal heart sounds. No murmur heard. No friction rub. No gallop. Pulmonary: Effort: Pulmonary effort is normal. No respiratory distress. Breath sounds: Normal breath sounds. No wheezing or rales. Abdominal: General: There is no distension. Palpations: Abdomen is soft. There is no mass. Tenderness: There is no abdominal tenderness. There is no guarding. Skin: General: Skin is warm and dry. Neurological: Mental Status: She is alert and oriented to person, place, and time. Psychiatric: Thought Content: Thought content normal. Hearing and vision grossly normal. For any new medications prescribed today, patient was educated about indications for the medication, how to take the medication and potential side effects of the medications. documented in this encounter [facility] 03-18-2023 History of Present illness Narrative Assessment/Plan: Diagnoses and all orders for this visit: At low risk for fall Encounter for immunization - Influenza vaccine IIV4 High Dose General medical exam - Influenza vaccine IIV4 High Dose Hypertension, unspecified type Grief Need for lipid screening - Lipid Panel; Future HTN Patient currently has high blood pressure that was measured in the office, which might be some causes of her wooziness that she has been feeling for the past few weeks. Patient has not been checking her blood pressure regularly. Recommend low sodium diet under <1500mg, DASH diet, weight loss, and regular physical activities to reduce blood pressure. Recommend measuring blood pressure 3-4 times per week and following up with in 6-8weeks if elevated over 140/90 consistently. Patient also to follow up if her wooziness does not improve. Grief Patient going through grief process with after multiple family , at this time patient will be trying to move in with her grandson and be with her family. I have discussed with the patient to continue to monitor her mood going forward, but follow up if worsening. Letter provided today for the patient to break her lease and move-in with her grandson. Lipid screening Lipid panel ordered treat it accordingly Goals None Health Maintenance Due Topic Date Due Tetanus: Every 10yrs Never done Dexa Scan Never done COVID-19 Vaccine (1) Never done Wellness Visit Never done Zoster Vaccines (1 of 2) Never done Falls Risk Assessment Never done Pneumococcal Vaccine: Age 65+ (1 - PCV) Never done Sequential Influenza Vaccine (1) Never done Subjective: Chief Complaint Patient presents with Medicare Wellness Visit Gap Closure (Health Maintenance) Dizziness Patient states states she is getting some woozy feelings, she states she had a low reading at physical therapy, she states she gets this feeling once in a while Fall Risk Screening HPI Salome Hsieh is a 87 y.o. female with pmhx of htn coming to the office today for a her blood pressure concerns and regarding her current mood symptoms. Patient noted that she has been having trouble staying in her place after her son has causing worsening of her mood symptoms and depression possibly regarding her grief. Patient is planning to move in with her grandson. Past Medical History: Diagnosis Date Diverticulosis Hypertension SBO (small bowel obstruction) (HCC) Past Surgical History: Procedure Laterality Date BACK SURGERY HYSTERECTOMY ILEOCECECTOMY The following portions of the patient's history were reviewed and updated as appropriate: allergies, current medications, past family history, past medical history, past social history, past surgical history and problem list. Review of Systems Constitutional: Negative for chills and fever. HENT: Negative for congestion. Eyes: Negative for visual disturbance. Respiratory: Negative for cough. Cardiovascular: Negative for chest pain. Gastrointestinal: Negative for abdominal pain, constipation, diarrhea, nausea and vomiting. Genitourinary: Negative for dysuria. Skin: Negative for color change. Neurological: Negative for headaches. Psychiatric/Behavioral: Negative for dysphoric mood. Grief Objective: PACU Vitals 03/18/23 1034 BP: (!) 169/81 Pulse: 78 SpO2: 98% Physical Exam Vitals reviewed. Constitutional: Appearance: She is well-developed. HENT: Head: Normocephalic and atraumatic. Eyes: Pupils: Pupils are equal, round, and reactive to light. Cardiovascular: Rate and Rhythm: Normal rate and regular rhythm. Heart sounds: Normal heart sounds. No murmur heard. No friction rub. No gallop. Pulmonary: Effort: Pulmonary effort is normal. No respiratory distress. Breath sounds: Normal breath sounds. No wheezing or rales. Abdominal: General: There is no distension. Palpations: Abdomen is soft. There is no mass. Tenderness: There is no abdominal tenderness. There is no guarding. Skin: General: Skin is warm and dry. Neurological: Mental Status: She is alert and oriented to person, place, and time. Psychiatric: Mood and Affect: Mood is depressed. Affect is tearful. Thought Content: Thought content normal. Thought content does not include homicidal or suicidal ideation. Thought content does not include homicidal or suicidal plan. Hearing and vision grossly normal. For any new medications prescribed today, patient was educated about indications for the medication, how to take the medication and potential side effects of the medications. Subjective: Salome Hsieh is a 87 y.o. female here for a Medicare Annual Wellness Visit. HPI Review of Systems Constitutional: Negative for chills and fever. HENT: Negative for congestion. Eyes: Negative for visual disturbance. Respiratory: Negative for cough. Cardiovascular: Negative for chest pain. Gastrointestinal: Negative for abdominal pain, constipation, diarrhea, nausea and vomiting. Genitourinary: Negative for dysuria. Skin: Negative for color change. Neurological: Negative for headaches. Psychiatric/Behavioral: Negative for dysphoric mood. Grief Reviewed by Provider: Care Team Patient Care Team: Tai Dozier MD as PCP - General (Family Medicine) Pharmacy / Equipment Co. (DME) [facility] [address] [place] [address] [address] [facility] [address] [facility] [id number] Medicare Risk Assessment Do you have an Advanced Directive (Living Will and/or Durable Power of Machine Operator General for Health Care)? If not, would you like more information about Advanced Directives?: No- I do want more information What is your exercise level?: Moderate (like brisk walking) What is your diet?: Other Can you prepare your own meals?: Yes Do you have trouble with finding transportation?: No Because of any health problems, do you need the help of another person with your personal care needs? (For example, eating, bathing, dressing, or getting around the house.): No Does your home have throw rugs, poor lighting or slippery bathtub or shower?: No Does your home have grab bars in bathrooms or handrails on stairs and steps?: Yes During the past four weeks, how would you rate your health in general?: Fair Whether or not you use a hearing aid, do you think you have a hearing problem or do others think you have a hearing problem?: No Whether or not you use glasses or contacts, do you have difficulty driving, watching television, reading, or doing any of your daily activities because of your eyesight?: No In the past six months, have you had an unexplained weight loss of 10 pounds or more?: No Do you take your medications as prescribed?: I do not miss doses of my medications During the past four weeks, how much have you been bothered by emotional problems such as feeling anxious, depressed, irritable, sad, or downhearted and blue?: (!) Extremely During the past four weeks, has your physical and emotional health limited your social activites with family, friends, neighbors, or groups? : (!) Quite a bit Provider/Supplier Name and Specialty: Dr Milligan, Gabbie Silveira, Dr. Nikki Ricks eye, Dr Chary Chan, Liam New, Dr. Roya machado Falls Risk Assessment Is Patient Ambulatory?: Y Fell in past year: 0 (No) Unsteady when walks: 1 (Yes) Worried about fallin (Yes) Advised to use cane/walker?: 0 (No) Holds onto furniture/arambula: 1 (Yes) Uses hands to stand up from a chair: 1 (Yes) Trouble stepping onto curb: 1 (Yes) Rushes to toilet: 0 (No) Lost feeling in feet: 0 (No) Medicine makes me light-headed: 0 (No) Medicine for sleep or mood: 0 (No) Often feel sad/depressed: 1 (Yes) Patient Self Risk Assessment Score: 6 Medicare Mini Cog Step 1: Three Word Registration Version Used: Version 4: Job Raymond Finger Step 2: Clock Drawing Step 2 score: Normal clock - 2 points Clock has all numbers placed in the correct sequence & position (e.g., 12, 3, 6 and 9 are in anchor positions) with no missing or duplicate numbers. Hands are pointing to the 11 & 2 (11:10). Hand length is not scored. Step 3: Three Word Recall Step 3: Three Word Recall Score: 3 Words Recalled Total score = Word Recall score + Clock Draw score A cut point of <3 on the Mini-Cog has been validated for dementia screening, but many individuals with clinically meaningful cognitive impairment will score higher. A cut point of <4 may indicate a need for further evaluation of cognitive status.: 5 5-Year Plan: Health Maintenance Topic Date Due Tetanus: Every 10yrs Never done Dexa Scan Never done COVID-19 Vaccine (1) Never done Wellness Visit Never done Zoster Vaccines (1 of 2) Never done Falls Risk Assessment Never done Pneumococcal Vaccine: Age 65+ (1 - PCV) Never done Sequential Influenza Vaccine (1) Never done Depression Screening (PHQ-2/9) 09/14/2023 There is no immunization history for the selected administration types on file for this patient. Objective: BP (!) 169/81 Pulse 78 Ht 4' 11.75 Wt 43.5 kg (96 lb) SpO2 98% BMI 18.91 kg/m Hearing/Vision Screen No results found. Physical Exam Vitals reviewed. Constitutional: Appearance: She is well-developed. HENT: Head: Normocephalic and atraumatic. Eyes: Pupils: Pupils are equal, round, and reactive to light. Cardiovascular: Rate and Rhythm: Normal rate and regular rhythm. Heart sounds: Normal heart sounds. No murmur heard. No friction rub. No gallop. Pulmonary: Effort: Pulmonary effort is normal. No respiratory distress. Breath sounds: Normal breath sounds. No wheezing or rales. Abdominal: General: There is no distension. Palpations: Abdomen is soft. There is no mass. Tenderness: There is no abdominal tenderness. There is no guarding. Skin: General: Skin is warm and dry. Neurological: Mental Status: She is alert and oriented to person, place, and time. Psychiatric: Mood and Affect: Mood is depressed. Affect is tearful. Thought Content: Thought content normal. Thought content does not include homicidal or suicidal ideation. Thought content does not include homicidal or suicidal plan. Assessment/Plan: Diagnoses and all orders for this visit: At low risk for fall Encounter for immunization - Influenza vaccine IIV4 High Dose General medical exam - Influenza vaccine IIV4 High Dose Hypertension, unspecified type Grief Need for lipid screening - Lipid Panel; Future Vaccinations today per orders. Vaccination counseling provided including which vaccinations are to be administered today, their indication(s), and potential side effects. All questions answered. CDC vaccine information sheet provided for each vaccine administered. Discussed elevated Body Mass Index (BMI): Advised regular exercise. Discussed elevated Body Mass Index (BMI): Advised healthy and appropriate diet. Rationale: Overweight (Findings) BMI No follow-ups on file. Patient Instructions (the written plan) and additional handouts provided to the patient with their After Visit Summary. documented in this encounter [facility] 03-18-2023 Instructions Tai Dozier MD - 03/18/2023 10:45 AM EDT [facility] Low Risk Patient Instructions: Your Falls Screening today shows that you are at low risk for falls. To further protect yourself from falls and maintain your independence, we recommend: 1. Read through the brochure, What You Can Do to Prevent Falls (from CDC). 2. Go through the brochure, Check for Safety: A Home Fall Prevention Checklist for Older Adults (from [facility]), and make changes as recommended. 3. Join a community falls prevention program: Stepping On, a 7-week evidence based program that teaches balance exercises and fall prevention strategies Misha Chi for older adults, group exercise that teaches Misha Chi forms that reduce fall risk (weight shifting, postural alignment and control, and coordinated movements of the arms, legs, head, and trunk) Matter of Balance, an evidence based program designed to reduce the fear of falling and increase activity levels of older adults OR an exercise class for strength and balance. 4. Take your Vitamin D with or without Calcium, as determined by your healthcare provider. 5. Get your vision and hearing checked annually. Falls At Home Each year, thousands of older Americans fall at home. Many of them are seriously injured, and some are disabled. In 2011, nearly 23,000 people over age 65 and 2.4 million were treated in emergency departments because of falls. Falls are often due to hazards that are easy to overlook but easy to fix. This checklist will help you find and fix those hazards in your home. The checklist asks about hazards found in each room of your home. For each hazard, the checklist tells you how to fix the problem. At the end of the checklist, you ll find other tips for preventing falls. FLOORS: Look at the floor in each room. Q: When you walk through a room, do you have to walk around furniture? A. Ask someone to move the furniture so your path is clear Q: Do you have throw rugs on the floor? A. Remove the rugs or use double-sided tape or a non-slip backing so the rugs won t slip. Q: Are there papers, books, towels, shoes, magazines, boxes, blankets, or other objects on the floor? A.paper supervisor things that are on the floor. Always keep objects off the floor. Q: Do you have to walk over or around wires or cords (like lamp, telephone, or extension cords)? A. Coil or tape cords and wires next to the wall so you can t trip over them. If needed, have an electrician powerhouse put in another outlet. STAIRS AND STEPS: Look at the stairs you use both inside and outside your home. Q: Are there papers, shoes, books, or other objects on the stairs? A. paper supervisor things on the stairs. Always keep objects off stairs. Q: Are some steps broken or uneven? A. Fix loose or uneven steps. Q: Are you missing a light over the stairway? A. Have an electrician powerhouse put in an overhead light at the top and bottom of the stairs. Q: Do you have only one light switch for your stairs (only at the top or at the bottom of the stairs)? A. Have an electrician powerhouse put in a light switch at the top and bottom of the stairs. You can get light switches that glow. Q: Has the stairway light bulb burned out? A. Have a friend or family member change the light bulb. Q: Is the carpet on the steps loose or torn? A. Make sure the carpet is firmly attached to every step, or remove the carpet and attach non-slip rubber treads to the stairs. Q: Are the handrails loose or broken? Is there a handrail on only one side of the stairs? A. Fix loose handrails or put in new ones. Make sure handrails are on both sides of the stairs and are as long as the stairs. KITCHEN: Look at your kitchen and eating area. Q: Are the things you use often on high shelves? A. Move items in your cabinets. Keep things you use often on the lower shelves (about waist level). Q: Is your step stool unsteady? A. If you must use a step stool, get one with a bar to hold on to. Never use a chair as a step stool. BATHROOMS: Look at all your bathrooms. Q: Is the tub or shower floor slippery? A. Put a non-slip rubber mat or self-stick strips on the floor of the tub or shower. Q: Do you need some support when you get in and out of the tub or up from the toilet? A. Have grab bars put in next to and inside the tub and next to the toilet. BEDROOMS: Look at all your bedrooms. Q: Is the light near the bed hard to reach? A. Place a lamp close to the bed where it s easy to reach. Q: Is the path from your bed to the bathroom dark? A. Put in a night-light so you can see where you re walking. Some night-lights go on by themselves after dark. Other Things You Can Do to Prevent Falls Do exercises that improve your balance and make your legs stronger. Exercise also helps you feel better and more confident. Have your doctor or pharmacist look at all the medicines you take, even [id number] medicines. Some medicines can make you sleepy or dizzy. Have your eyes checked by an eye doctor at least once a year and update your glasses. Get up slowly after you sit or lie down. Wear shoes both inside and outside the house. Avoid going barefoot or wearing slippers. Improve the lighting in your home. Put in brighter light bulbs. Florescent bulbs are bright and cost less to use. It s safest to have uniform lighting in a room. Add lighting to dark areas. Hang lightweight curtains or shades to reduce glare. [place] a contrasting color on the top edge of all steps so you can see the stairs better. For example, use a light color paint on dark wood. To access this brochure online, please visit the CDC website at http://www.cdc.gov/steadi/pdf/billy ck_for_safety_brochure-a.pdf Chair Rise Exercise What it does: Strengthens the muscles in your thighs & buttocks. Goal: To do this exercise without using your hands as you become stronger. How to do it: 1. Sit toward the front of a sturdy chair with your knees bent & feet flat on the floor shoulder-width apart 2. Rest your hands lightly on the seat on either side of you, keeping your back & neck straight & and chest slightly forward. 3. Breathe in slowly. Lean forward & feel your weight on the front of your feet. 4. Breathe out and slowly stand up, using your hands as little as possible. 5. Pause for a full breath in & out. 6. Breathe in as you slowly sit down. Do not let yourself collapse back down into the chair. Rather, control your lowering as much as possible. 7. Breathe out. Repeat 10-15 times. If this number is too hard for you when you first start practicing this exercise, begin with fewer and work up to this number. Rest for a minute & then do a final set of 10-15. For detailed instructions, please visit the CDC website at http://www.cdc.gov/steadi/pdf/beau ir_rise_exercise-a.pdf Stepping On is an evidence based program proven to reduce falls in older adults. It is a workshop offered once a week for seven weeks. In a small-group setting, you will learn balance exercises and develop specific knowledge and skills to prevent falls. Older adults who should attend are those who: are at risk of falling who have fallen one or more times lives at home are able to walk without the help of another person Local guest experts provide information on exercise, safety, vision, and medications. Classes are offered at [facility]. To find out specifics about a class, please call [phone]. Misha chi: Moving for Better Balance involves low impact exercise. The 12-week class is offered for three hours per week and is led by a trained certified nursing assistant instructor. It is intended for people aged 60 and older. Participants learn and perform a program of eight forms that progress from easy to more difficult. The program can accommodate persons with various physical conditions. Health Benefits of Misha Chi: Moving for Better Balance: Improved social and mental well-being, Improved balance and physical functioning, Improved confidence in conducting daily activities, Reduced risk of falling and sustaining associated injuries, and Maintained independence and improved quality of life. To find a Misha Chi program in your area or additional resources about fall prevention please contact: [facility] Violence and Injury Prevention Program at [phone] or [email or web address] A Matter of Balance: Managing Concerns about Falls is an evidence based program designed to reduce the fear of falling and increase activity levels of older adults. A trained technical planner leads 8 two-hour sessions for small groups of older adults. The class is intended for people 60 and older who are at risk of falling have a fear of falling or restrict activities who have fallen in the past are interested in improving flexibility, balance, and strength. Participants will learn to view falls as controllable, set goals to increase activity levels, and reduce fall risks at home. Classes are offered in all [address] [place] [address] in [place]. For more information about specific classes near you, please visit [email or web address]://[email or web address]. Thank you for choosing our office for your Medicare Wellness Visit. Below you will find the plans we discussed today for your future medical treatments. Please keep this plan in a visible location so you can refer to it often and let our office know if you have any questions. 5-Year Plan Health Maintenance Topic Date Due Tetanus: Every 10yrs Never done Dexa Scan Never done COVID-19 Vaccine (1) Never done Wellness Visit Never done Zoster Vaccines (1 of 2) Never done Falls Risk Assessment Never done Pneumococcal Vaccine: Age 65+ (1 - PCV) Never done Sequential Influenza Vaccine (1) Never done Depression Screening (PHQ-2/9) 09/14/2023 Pharmacy/Equipment Co. (DME) [facility] [address] [place] [address] Referrals and Orders Orders Placed This Encounter Procedures Influenza vaccine IIV4 High Dose documented in this encounter [facility] 01-02-2023 Telephone encounter Note Salome is requesting a refill for Requested Prescriptions Pending Prescriptions Disp Refills amLODIPine (NORVASC) 5 MG tablet 30 tablet 0 Sig: Take 1 (one) tablet (5 mg total) by mouth daily . losartan (COZAAR) 100 MG tablet 30 tablet 0 Sig: Take 1 (one) tablet (100 mg total) by mouth daily . Last refill was 09/13/22 Last appt was 09/13/22 Upcoming appt 03/18/23 Please send to [facility] [address] [place] [address] Follow up: Refill pending for review without additional follow up based on information above. [facility] 01-02-2023 Miscellaneous Notes Salome is requesting a refill for Requested Prescriptions Pending Prescriptions Disp Refills amLODIPine (NORVASC) 5 MG tablet 30 tablet 0 Sig: Take 1 (one) tablet (5 mg total) by mouth daily . losartan (COZAAR) 100 MG tablet 30 tablet 0 Sig: Take 1 (one) tablet (100 mg total) by mouth daily . Last refill was 09/13/22 Last appt was 09/13/22 Upcoming appt 03/18/23 Please send to [address] [place] [address] [place] [id number] Follow up: Refill pending for review without additional follow up based on information above. documented in this encounter [facility] 09-13-2022 History of Present illness Narrative Assessment/Plan: Diagnoses and all orders for this visit: Hypertension, unspecified type Glaucoma of left eye, unspecified glaucoma type SBO (small bowel obstruction) (HCC) - Ambulatory referral to Gastroenterology; Future Diverticulosis - Ambulatory referral to Gastroenterology; Future Hemorrhoids, unspecified hemorrhoid type - Ambulatory referral to Gastroenterology; Future History of colon surgery - Ambulatory referral to Gastroenterology; Future Hearing difficulty of both ears - Ambulatory referral to ENT; Future Positive colorectal cancer screening using Cologuard test Hypertension Patient currently taking amlodipine 5 mg and losartan 100 mg overall tolerating the medications very well without any acute issues. At this time patient blood pressure is slightly elevated at 142/84, but will continue to monitor patient's blood pressure going forward Left ankle, Patient is currently being treated by the contact representative for her left eye glaucoma. Currently stable and controlled with current treatment plan. No Diagnostic tests are needed at this time. Continue care with the specialist. SBO Diverticulosis Hemorrhoids History of colon surgery Positive Cologuard test With multiple GI issues, patient was following her GI specialist in [place] before moving to [place] on regular basis. At this time patient did have a her ileocecum 56 cm that was resected possibly due to her SBO or diverticulosis. At this time overall patient noted that she has to be very careful regarding the foods that she is eating but overall relatively stable at this time. Will be referring patient to GI for further evaluation and care, patient had positive Cologuard test in 2019 and also a colonoscopy in 2020 with some polyps Hearing difficulty At this time patient will be referred to ENT/audiology for further evaluation care regarding patient's hearing difficulty. Patient noted that for the last 1 to 2 years it has been worsening where she is having difficulty hearing other people and has been also watching television at a very high volume. Goals None Health Maintenance Due Topic Date Due Tetanus: Every 10yrs Never done Dexa Scan Never done COVID-19 Vaccine (1) Never done Wellness Visit Never done Depression Screening (PHQ-2/9) Never done Zoster Vaccines (1 of 2) Never done Falls Risk Assessment Never done Pneumococcal Vaccine: Age 65+ (1 - PCV) Never done Sequential Influenza Vaccine (1) Never done Subjective: Chief Complaint Patient presents with Establish Care Gap Closure (Health Maintenance) Referrals Patient needs a referral for hearing aids GI Problem Patient needs a windows admin for history of her gi problems and stomach surgery Hip Pain Patient would like a referral to someone for her hip pain HPI Salome Hsieh is a 86 y.o. female with past medical history of SBO, hypertension, glucoma coming to the office today to establish care. Overall at this time patient has been doing well but she will need a referral to a specialist regarding her GI issues as well as for hearing. Patient noted that she had surgeries as well has multiple bowel issues in the past and at this time patient would like to be referred to GI for further evaluation and care. Patient also noted that she has been having some difficulty hearing for the last 1 to 2 years and would like to be further evaluated for her hearing as well. Otherwise patient overall has been doing well. Patient does note that her son has recently and is in the grieving process but she does have other family members in the neighbor with grief support. Past Medical History: Diagnosis Date Hypertension Past Surgical History: Procedure Laterality Date BACK SURGERY HYSTERECTOMY ILEOCECECTOMY The following portions of the patient's history were reviewed and updated as appropriate: allergies, current medications, past family history, past medical history, past social history, past surgical history and problem list. Review of Systems Constitutional: Negative for chills and fever. HENT: Negative for congestion. Difficulty hearing Respiratory: Negative for cough. Cardiovascular: Negative for chest pain. Gastrointestinal: Negative for abdominal pain, constipation, diarrhea, nausea and vomiting. Genitourinary: Negative for dysuria. Skin: Negative for color change. Objective: PACU Vitals 09/13/22 1303 BP: (!) 150/81 Pulse: 75 SpO2: 97% Physical Exam Vitals reviewed. Constitutional: Appearance: She is well-developed. HENT: Head: Normocephalic and atraumatic. Eyes: Pupils: Pupils are equal, round, and reactive to light. Cardiovascular: Rate and Rhythm: Normal rate and regular rhythm. Heart sounds: Normal heart sounds. No murmur heard. No friction rub. No gallop. Pulmonary: Effort: Pulmonary effort is normal. No respiratory distress. Breath sounds: Normal breath sounds. No wheezing or rales. Abdominal: General: There is no distension. Palpations: Abdomen is soft. There is no mass. Tenderness: There is no abdominal tenderness. There is no guarding. Skin: General: Skin is warm and dry. Neurological: Mental Status: She is alert and oriented to person, place, and time. Psychiatric: Thought Content: Thought content normal. Hearing and vision grossly normal. For any new medications prescribed today, patient was educated about indications for the medication, how to take the medication and potential side effects of the medications. Depression Screening 09/13/2022 Little interest or pleasure in doing things 1 Feeling down, depressed, or hopeless 1 PHQ-2 Total Score 2 Trouble falling or staying asleep, or sleeping too much 1 Feeling tired or having little energy 1 Poor appetite or overeating 1 Feeling bad about yourself - or that you are a failure or have let yourself or your family down 0 Trouble concentrating on things, such as reading the newspaper or watching television 0 Moving or speaking so slowly that other people could have noticed. Or the opposite - being so fidgety or restless that you have been moving around a lot more than usual 0 Thoughts that you would be better off , or of hurting yourself in some way 0 PHQ-9 Total Score 5 If you checked off any problems, how difficult have these problems made it for you to do your work, take care of things at home, or get along with other people? Somewhat difficult documented in this encounter [facility] Evaluation note Diagnosis Hypertension, unspecified type- Primary Glaucoma of left eye, unspecified glaucoma type SBO (small bowel obstruction) (HCC) Unspecified intestinal obstruction Diverticulosis Diverticulosis of colon (without mention of hemorrhage) Hemorrhoids, unspecified hemorrhoid type History of colon surgery Positive colorectal cancer screening using Cologuard test Hearing difficulty of both ears [facility] Diagnosis Hypertension, unspecified type- Primary [facility] Diagnosis At low risk for fall- Primary Encounter for immunization General medical exam Unspecified general medical examination Hypertension, unspecified type Grief Adjustment disorder with depressed mood Need for lipid screening Screening for lipoid disorders [facility] Diagnosis Dizziness- Primary Dizziness and giddiness Tension headache Hypertension, unspecified type Other skin changes Congestion of right ear [facility] Diagnosis Chest pain- Primary Unspecified chest pain Chest pain, unspecified type [facility] Diagnosis 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 Diagnosis General medical exam- Primary Unspecified general medical examination Hypertension, unspecified type At low risk for fall documented in this encounter [facility] Reason for Referral Specialty Diagnoses / Procedures Referred By Mickey marroquin Referred To Contact Otolaryngology Diagnoses Hearing difficulty of both ears Tai Dozier MD [address] [place] [address] [address] [place] [address] Referral ID Status Reason Start Date Expiration Date V isits Requested Visits Authorized [id number] Authorized 09/13/2022 09/13/2023 1 1 Specialty Diagnoses / Procedures Referred By Mickey t Referred To Contact Gastroenterology Diagnoses SBO (small bowel obstruction) (HCC) Diverticulosis Hemorrhoids, unspecified hemorrhoid type History of colon surgery Tai Dozier MD [address] [place] [address] [address] [place] [address] Referral ID Status Reason Start Date Expiration Date V isits Requested Visits Authorized [id number] Authorized 09/13/2022 09/13/2023 1 1 Specialty Diagnoses / Procedures Referred By Mickey t Referred To Contact Dermatology Diagnoses Other skin changes Tai Dozier MD [address] [place] [address] [address] [place] [address] Referral ID Status Reason Start Date Expiration Date V isits Requested Visits Authorized [id number] Authorized 04/02/2023 04/01/2024 1 1 Specialty Diagnoses / Procedures Referred By Contac t Referred To Contact Diagnoses SBO (small bowel obstruction) ([facility]) Tai Dozier MD [address] [place] [address] [address] [place] [address] Referral ID Status Reason Start Date Expiration Date Visits Re quested Visits Authorized [id number] Closed 1 1 Specialty Diagnoses / Procedures Referred By Contac t Referred To Contact Radiology Diagnoses Encounter for osteoporosis screening in asymptomatic postmenopausal patient Procedures XR Bone Density DEXA Axial Tai Dozier MD [address] [place] [address] [address] [place] [address] Referral ID Status Reason Start Date Expiration Date V isits Requested Visits Authorized [id number] Authorized 09/17/2023 09/16/2024 1 1 Advance Directives No Advanced Directives Records FoundLatest Code Status on File Code Status Date Activated Date Inactivated Comments DNRCC-A with Intubation 08/18/2023 9:42 PM 08/19/2023 11 :17 PM This code status was ascertained in the following way: Code status discussion: discussion with patient To update the patient's code status, place a code status order. Do not modify or discontinue any currently active code status orders. Code Status History Code Status Date Activated Date Inactivated Comments Full Code - Default 08/18/2023 6:01 PM 08/18/2023 9:42 P M This is order is used when code status has not been discussed with the patient, or code status is otherwise unknown/unconfirmed To update the patient's code status, place a code status order. Do not modify or discontinue any currently active code status orders. Summary Purpose Family History No Family History Records FoundNo Family History Records FoundNo Family History Records FoundNo Family History Records FoundNo Family History Records Found Additional Source Comments Reason for Visit (unrecogniz ed section and content) Reason Comments Light Sensitivity Specialty Diagnoses / Procedures Referred By Contact Referred To Contact Ophthamology - Retina / Ophthalmology Diagnoses Exudative age-related macular degeneration, right eye, with active choroidal neovascularization *10w DFE/OCT/OPTOS + Avastin OD + SLE (Wet AMD) Procedures OK BEVACIZUMAB INJECTION OK INTRAVITREAL NJX PHARMACOLOGIC AGT SPX INJECTION Self, Self Melvin Harding MD [address] [id number] Phone: tel: fax: Referral ID Status Reason Start Date Expiration Date V isits Requested Visits Authorized [id number] Authorized 07/06/2024 07/05/2025 12 12 Reason Comments Avastin Injection Specialty Diagnoses / Procedures Referred By Contact Referred To Contact Ophthamology - Retina / Ophthalmology Diagnoses Exudative age-related macular degeneration, right eye, with active choroidal neovascularization *10w DFE/OCT/OPTOS + Avastin OD + SLE (Wet AMD) Procedures OK BEVACIZUMAB INJECTION OK INTRAVITREAL NJX PHARMACOLOGIC AGT SPX INJECTION Self, Self Melvin Harding MD [address] [phone] Reason Comments Follow-up Specialty Diagnoses / Procedures Referred By Contact Referred To Contact Ophthamology - Retina / Ophthalmology Diagnoses Return in about 1 month (around 09/19/2023) for Oct, Injection Avastin, OD. Procedures BEVACIZUMAB INJECTION INJECTION Self, Self Melvin Harding MD [address] [address] Referral ID Status Reason Start Date Expiration Date V isits Requested Visits Authorized [id number] Authorized 09/30/2023 06/22/2024 12 12 Reason Comments Blurred Vision Reason Comments Establish Care Gap Closure (Health Maintenance) Referrals Patient needs a refe rral for hearing aids GI Problem Patient needs a ty roenterologist for history of her gi problems and stomach surgery Hip Pain Patient would like a referral to someone for her hip pain Reason Onset Date Comments Medication Refill 01/02/2023 Reason Onset Date Comments Medicare Wellness Visit Gap Closure (Health Maintenance) Dizziness Patient states s tates she is getting some woozy feelings, she states she had a low reading at physical therapy, she states she gets this feeling once in a while Fall Risk Screening 03/18/2023 Reason Comments Gap Closure (Health Maintenance) Dizziness Pt states she is hav ing increased dizziness with headaches on the top of her head and down to her R side of the head. She states I feel like I'm walking around without a clear head Skin Problem Pt states she has a discolored spot on the R side of the head and it has gotten bigger and she is having some discomfort in that spot Reason Comments Chest Pain Specialty Diagnoses / Procedures Referred By Mickey marroquin Referred To Contact Diagnoses Chest pain Chest pain, unspecified type Procedures Brayan Kennedy, DO [address] [facility] [address] [place] [address] [facility] [address] [place] [address] Referral ID Status Reason Start Date Expiration Date Visits Re quested Visits Authorized [id number] 1 1 Reason Comments New Patient Specialty Diagnoses / Procedures Referred By Mickey marroquin Referred To Contact Ophthalmology Diagnoses Branch retinal vein occlusion of left eye, unspecified complication status Alley Nikki, OD [address] [place] [address] Melvin Harding MD [address] [facility] 5th [place] [address] Referral ID Status Reason Start Date Expiration Date V isits Requested Visits Authorized [id number] New Request 08/21/2023 09/14/2024 1 1 Reason Comments Gap Closure (Health Maintenance) Transition Of Care Reason Comments Gap Closure (Health Maintenance) Follow-up Reason Comments Blurred Vision Distortion Of Vision Referral ID Status Reason Start Date Expiration Date V isits Requested Visits Authorized [id number] Auth Not Needed 09/30/2023 06/22/2024 12 12 Reason Onset Date Comments Establish Care Wants to discuss medication refills, sees eye dr for macular degeneration at [facility] Harding Fall Risk Screening 08/17/2024 Reason Onset Date Comments MWV OUTREACH 02/09/2025 APPT: 02/16/25 Reason Onset Date Comments Gap Closure (Health Maintenance) Medicare Wellness Visit Fall Risk Screening 02/16/2025 Care Teams (unrecognized sec tion and content) Manager Field Sales Relationship Specialty Start Date End Date Tai Dozier MD [address] [place] [address] [address] [place] [address] PCP - General Family Medicine 09/13/22 Manager Field Sales Relationship Specialty Start Date End Date Tai Dozier MD [address] [place] [address] [address] [place] [address] PCP - General Family Medicine 09/13/22 Manager Field Sales Relationship Specialty Start Date End Date Tai Dozier MD [address] [place] [address] [address] [place] [address] PCP - General Family Medicine 09/13/22 Manager Field Sales Relationship Specialty Start Date End Date Tai Dozier MD [address] [place] [address] [address] [place] [address] PCP - General Family Medicine 09/13/22 Manager Field Sales Relationship Specialty Start Date End Date Tai Dozier MD [address] [place] [address] [address] [place] [address] PCP - General 08/18/23 Manager Field Sales Relationship Specialty Start Date End Date Tai Dozier MD [address] [place] [address] [address] [place] [address] PCP - General Family Medicine 09/13/22 Manager Field Sales Relationship Specialty Start Date End Date Tai Dozier MD [address] [place] [address] [address] [place] [address] PCP - General Family Medicine 09/13/22 Manager Field Sales Relationship Specialty Start Date End Date Ghazala Rodriguez MD [address] [place] [address] [place] [address] PCP - General Family Medicine 08/17/24 Manager Field Sales Relationship Specialty Start Date End Date Ghazala Rodriguez MD [address] [facility] [place] [address] PCP - General Family Medicine 08/17/24 Manager Field Sales Relationship Specialty Start Date End Date Ghazala Rodriguez MD [address] [facility] [address] [place] [address] PCP - General Family Medicine 08/17/24 Manager Field Sales Relationship Specialty Start Date End Date Ghazala Rodriguez MD [address] [place] [address] PCP - General Family Medicine 08/17/24 Manager Field Sales Relationship Specialty Start Date End Date Ghazala Rodriguez MD [address] [place] [address] PCP - General Family Medicine 08/17/24 Manager Field Sales Relationship Specialty Start Date End Date Ghazala Rodriguez MD [address] [place] [address] PCP - General Family Medicine 08/17/24 Scheduled Active and Recently Administ ered Medications (unrecognized section and content) Medication Order 08/17/2023 08/18/2023 08/19/2023 aspirin chewable tablet 81 mg 81 mg, oral, Daily, First dose on Fri08/19/23 at 0900 0803 (Given - Provid er: Nereida Milton) losartan (COZAAR) tablet 100 mg 100 mg, oral, Daily, First dose on Fri08/19/23 at 0900 2142 (Held by provider - Provider: Brayan M Leila, DO - Reason: Post-procedure) 0900 (Not Given - Provider: Candi Santos RN - Reason: See Provider Order)2312 (Unheld by provider - Provider: Automatic Discharge Provider) regadenoson (LEXISCAN) injection 0.4 mg (COMPLETED) 0.4 mg, intravenous, Once, On Fri08/19/23 at 1115, For 1 dose, CV Medication Orders 1120 (Given - Provid er: Joyce Montes De Oca RN) sodium chloride 0.9 % flush 10 mL(Linked Group 1) 10 mL, intravenous, 2 times daily, First dose on Fri08/18/23 at 2200 2147 (Given - Provider: Cathy Salinas RN) 0802 (Given - Provider: Nereida Milton)2100 (Canceled Entry - Provider: Automatic Discharge Provider - Comment: Automatically canceled at discontinue of medication order) sodium chloride 0.9 % flush 10 mL (COMPLETED) 10 mL, intravenous, Once, On Fri08/19/23 at 0845, For 1 dose 0815 (Given - Provid er: Rosaura Gonzalez) sodium chloride 0.9 % flush 10 mL (COMPLETED) 10 mL, intravenous, Once, On Fri08/19/23 at 0845, For 1 dose 1121 (Given - Provid er: Rosaura Gonzalez) TC-99M sestamibi P radio-isotope injection 10.5 millicurie (COMPLETED) 10.5 millicurie, intravenous, Once in imaging, Starting on Fri08/19/23 at 0826, For 1 dose 0815 (Given - Provid er: Rosaura Gonzalez) TC-99M sestamibi P radio-isotope injection 30 millicurie (COMPLETED) 30 millicurie, intravenous, Once in imaging, Starting on Fri08/19/23 at 0827, For 1 dose 1121 (Given - Provid er: Mirquia Carlos) PRN Medication Order 08/17/2023 08/18/2023 08/19/2023 acetaminophen (TYLENOL) tablet 650 mg 650 mg, oral, Every 6 hours PRN, mild pain, Starting on Fri08/18/23 at 2142 melatonin tablet 6 mg 6 mg, oral, Nightly PRN, sleep, Starting on Fri08/18/23 at 2142 nitroglycerin (NITROSTAT) SL tablet 0.4 mg (COMPLETED) 0.4 mg, sublingual, Every 5 min PRN, chest pain, Starting on Fri08/18/23 at 1723, For 3 doses, Give every 5 minutes as needed for chest pain to a maximum of 3 doses. Notify MD to obtain an order for an EKG if no relief after 3 doses or chest pain recurs. HOLD and notify MD if SBP less than 90 mmHg. Do not give if nitroglycerin infusion running concurrently. Do not give within 24 hours of sildenafil citrate (Viagra) or vardenafil (Levitra) use, or within 48 hours of tadalafil (Cialis) use. 1733 (Given - Provider: Mirella Trevizo RN - Comment: 10/30 pain)1743 (Given - Provider: Mirella Trevizo RN - Comment: pain 08/30) 0806 (Given - Provider: Nereida Milton)0839 (Given - Provider: Sandi Hall RN - Comment: 2nd dose, unable to scan due to med being complete BP 168/76) polyethylene glycol (MIRALAX) packet 17 g 17 g, oral, Daily PRN, constipation, Starting on Fri08/18/23 at 2142, Bowel Regimen - for prevention of constipation sodium chloride 0.9 % flush 10 mL(Linked Group 1) 10 mL, intravenous, As needed, line care, Starting on Fri08/18/23 at 2142 Linked Groups Order Group 1: Insert peripheral IV (CANCELED) STAT, Once, On Fri08/18/23 at 2143, For 1 occurrence And Maintain IV access (CANCELED) Until discontinued, Starting on Fri08/18/23 at 2143, Until Specified And Saline lock IV (CANCELED) Routine, Once, On Fri08/18/23 at 2143, For 1 occurrence And sodium chloride 0.9 % flush 10 mLJump to med 10 mL, intravenous, 2 times daily, First dose on Fri08/18/23 at 2200 And sodium chloride 0.9 % flush 10 mLJump to med 10 mL, intravenous, As needed, line care, Starting on Fri08/18/23 at 2142 INFORMATION SOURCE (unrecogn ized section and content) DATE CREATED AUTHOR 03/21/2024 [facility] DATE CREATED AUTHOR AUTHOR'S ORGANIZ ATION 04/09/2024 [facility] DATE CREATED AUTHOR AUTHOR'S ORGANIZ ATION 01/18/2025 [facility] DATE CREATED AUTHOR AUTHOR'S ORGANIZ ATION 02/18/2025 [facility] DATE CREATED AUTHOR AUTHOR'S ORGANIZ ATION 05/03/2025 [facility] FOR RECORDS PERTAINING TO PATIENTS WHO ARE OR HAVE BEEN ENROLLED IN A CHEMICAL DEPENDENCY/SUBSTANCEABUSE PROGRAM, SOME INFORMATION MAY BE OMITTED. This clinical summary was aggregated from multiple sources. Caution should be exercised in using it in the provision of clinical care. This summary normalizes information from multiple sources, and as a consequence, information in this document may materially change the coding, format and clinical context of patient data. In addition, data may be omitted in some cases. CLINICAL DECISIONS SHOULD BE BASED ON THE PRIMARY CLINICAL RECORDS. [facility] [employer] [facility]. provides no warranty or guarantee of the accuracy or completeness of information in this document.
[2025-05-21 18:38] VITALS: BP 143/78; PULSE 80; RESP 18; TEMP 36.7; O2SAT 97
== END 2025-05-21 19:05 | disposition home or self-care (01) ==
PROVIDERS: Emergency Provider Emergency Medicine; Visit Provider Emergency Medicine
DX: S16.1XXA Strain of muscle, fascia and tendon at neck level, initial encounter (principal); I10 Essential (primary) hypertension; S70.01XA Contusion of right hip, initial encounter; K21.9 Gastro-esophageal reflux disease without esophagitis; V43.62XA Car passenger injured in collision with other type car in traffic accident, initial encounter
CPT/HCPCS: 70450; 72125; 73502; 73590; 99284